=== PATIENT | male | born 1940 | race Caucasian/White ===

== ENCOUNTER 2017-01-07 09:00 | Emergency (ER) | END 2017-01-07 10:50 | disposition home or self-care (01) | DX: S41.111A Laceration without foreign body of right upper arm, initial encounter (principal); S50.811A Abrasion of right forearm, initial encounter; I10 Essential (primary) hypertension; E11.9 Type 2 diabetes mellitus without complications; R93.0 Abnormal findings on diagnostic imaging of skull and head, not elsewhere classified; W05.0XXA Fall from non-moving wheelchair, initial encounter; Y92.9 Unspecified place or not applicable; Z23 Encounter for immunization; Z79.84 Long term (current) use of oral hypoglycemic drugs ==

== ENCOUNTER 2017-04-01 09:45 | Emergency (ER) | END 2017-04-01 14:41 | disposition home or self-care (01) ==

== ENCOUNTER 2017-04-05 11:04 | Emergency (ER) | END 2017-04-05 15:05 | disposition home or self-care (01) ==

== ENCOUNTER → 2017-06-30 | Outpatient (CLI) | END | disposition home or self-care (01) ==

== ENCOUNTER 2017-09-09 00:37 | Emergency (ER) | END 2017-09-09 05:36 | disposition home or self-care (01) ==

== ENCOUNTER 2017-09-11 10:01 | Emergency (ER) | END 2017-09-11 13:30 | disposition home or self-care (01) ==

== ENCOUNTER 2017-09-20 08:58 | Emergency (ER) | END 2017-09-20 10:05 | disposition home or self-care (01) ==

== ENCOUNTER 2018-04-14 05:42 | Emergency (ER) | payer MEDICARE, OTHER ==
[~2018-04-14] VITALS: Ht 180.3 cm; Wt 109.1 kg
[~2018-04-14 05:42] MED LIST: ALBU4TAB4 PO; ASCO500C7 PO; CEPH-443 PO; CHOL100062 PO; CLIN300C10 PO; CLOT1L10 TOP; DOCU-144 PO; GABA-528 PO; GUAI400T44 PO; HYDR-4011 PO; LIDO700A45 TP; LORA1TAB PO; METF-849 PO; METO-448 PO; MULTI PO; NAPR-688 PO; OMEG1CAP2 PO; POTA2TAB14 PO; POTA8TAB2 PO; ROPI0.5T2 PO; SAW450CA7 PO; SULF1TAB31 PO; TAMS0.4C2 PO; VIT1TABL46 PO; ZINC220C5 PO
[2018-04-14 05:50] VITALS: Ht 180.3 cm; Wt 109.1 kg
[2018-04-14] MEDS ORDERED: ONDANSETRON 4 MG INJ IV STA ×2 (06:06→08:18)
[2018-04-14] MEDS ORDERED: morphine 4 MG/ML VIAL IV STA (06:06)
[2018-04-14 08:00] VITALS: BP 174/85; PULSE 74; RESP 16
[2018-04-14] MEDS ORDERED: DIPHENHYDRAMINE 50 MG INJ IV ONE (08:00)
[2018-04-14] MEDS ORDERED: HYDROmorphONE 1 MG/ML SYG IV STA (08:18)
[2018-04-14] MEDS ORDERED: NICARDipine HCL 30 MG CAPSULE PO ONE (08:30)
--- NOTE | 2018-04-14 08:47 | ERD ---
ER Documentation Chief Complaint Chief Complaint CIERA [id number],from [facility],nontraumatic muscular back pain HPI This is a 77-year-old male with a known history of hypertension type 2 diabetes and diabetic neuropathy. The patient has a prosthetic limb of the left lower extremity and resides in [facility]. The patient also indicates he has a history of chronic back pain and his primary care physician is Dr. Mills. Ping ent presents to the emergency department today complaining of worsening of his back pain. He states is localized to the midportion of his thoracic spine. He states he has had multiple similar episodes of this pain. He denies any recent or remote trauma. He states the pain is 8 out of 10 in intensity. He states he takes analgesic medication for the pain but it has not improved his symptoms. H e denies any saddle anesthesia. He denies any changes in his bladder or bowel frequency. He denies any fever shaking or chills. The pain is exacerbated with movement. ROS All systems reviewed and are negative except as per history of present illness. Medications Home Meds Active Scripts Cephalexin* (Keflex*) 500 Mg Capsule, 500 MG PO QID for 7 Days, CAP Prov:EVELYN DEL CASTILLO PA-C 09/20/17 Sulfamethoxazole/Trimethoprim* (Bactrim Ds* Tablet) 1 Each Tablet, 1 TAB PO BID, #14 TAB Prov:EVELYN DEL CASTILLO PA-C 09/20/17 Naproxen* (Naproxen*) 500 Mg Tablet, 500 MG PO BID PRN for q6, #20 TAB Prov:ALETHEA DOMINGUEZ DO 09/09/17 Clindamycin Hcl* (Clindamycin Hcl*) 300 Mg Capsule, 300 MG PO TID for 10 Days, CAP Prov:ALETHEA DOMINGUEZ DO 09/09/17 Reported Medications Guaifenesin (MUCUS RELIEF CHEST) 400 Mg Tablet, 400 MG PO Q12, TAB 09/11/17 Hydrocodone/Acetaminophen ([place] 5-325 Tablet) 1 Each Tablet, 1 EACH PO Q8 PRN for SEVERE PAIN LEVEL 7-10, TAB 09/11/17 Zinc Sulfate* (Zinc Sulfate*) 220 Mg Cap, 220 MG PO DAILY, CAP 09/11/17 Ascorbic Acid* (Vitamin C*) 500 Mg Capsule.sa, 500 MG PO DAILY, CAP 09/11/17 Multivitamins* (Theragran*) 1 Tab Tab, 1 TAB PO DAILY, TAB 09/11/17 Lidocaine (Lidocaine) 1 Each Adh..patch, 1 EACH TP DAILY 09/11/17 Clotrimazole* (Lotrimin*) 1%-10 Ml Solution, 1 APPLIC TOP DAILY, BOTTLE 09/11/17 Gabapentin* (Gabapentin*) 800 Mg Tablet, 800 MG PO TID, #90 TAB 09/11/17 [place] Fruit (Saw [place]) 450 Mg Capsule, 900 MG PO DAILY, CAP 09/11/17 Potassium Gluconate (Potassium Gluconate) 500 Mg Tablet, 500 MG PO BID, TAB 09/11/17 Cholecalciferol* (Vitamin D3*) 1,000 Unit Tablet, 2000 UNIT PO DAILY, TAB 09/11/17 Vitamin B Complex* (Vitamin B Complex*) 1 Each Tablet, 1 TAB PO DAILY, TAB 09/11/17 Ropinirole Hcl* (Ropinirole Hcl*) 0.5 Mg Tablet, 0.5 MG PO HS, TAB 09/11/17 [place]-3 Acid Ethyl Esters (Lovaza) 1 Gm Capsule, 4 GM PO DAILY, CAP 09/11/17 Metoprolol Tartrate* (Lopressor*) 25 Mg Tab, 25 MG PO BID, #60 TAB 09/09/17 Tamsulosin Hcl* (Tamsulosin Hcl*) 0.4 Mg Cap.er.24h, 0.4 MG PO HS, CAP 09/09/17 Albuterol Sulfate* (Albuterol Sulfate*) 4 Mg Tablet, 4 MG PO BID, TAB 09/09/17 Metformin* (Glucophage*) 500 Mg Tab, 500 MG PO DAILY, TAB 07/02/14 Lorazepam* (Lorazepam*) 1 Mg Tablet, 1 MG PO Q8, TAB 07/02/14 Docusate Sodium* (Colace*) 100 Mg Capsule, 100 MG PO TID, CAP 07/02/14 Potassium Chloride* (Klor-Con*) 8 Meq Tablet.sa, 8 MEQ PO DAILY 03/31/12 Allergies Allergies: Coded Allergies: No Known Allergy (Unverified , 09/20/17) PMhx/Soc History of Surgery: Yes (Lt. BKA) Anesthesia Reaction: No Hx Neurological Disorder: No Hx Respiratory Disorders: No Hx Cardiac Disorders: Yes (Cardiac Arrythmia; diabetes; hypertension) Hx Psychiatric Problems: No Hx Miscellaneous Medical Probl: Yes (DM, HTN) Hx Alcohol Use: Yes (Occasional) Hx Substance Use: No Hx Tobacco Use: Yes (40 years ago) Smoking Status: Former smoker Physical Exam Vitals Vital Signs Date Temp Pulse Resp B/P (MAP) Pulse Ox O2 O2 Flow FiO2 Time Delivery Rate 04/14/18 98.0 74 16 174/85 98 08:00 (114) 04/14/18 98.5 72 18 169/107 98 05:50 (127) Physical Exam Constitutional:Well-developed. Well-nourished. HEENT:Normocephalic. Atraumatic.Pupils were equal round reactive to light. Moist mucous membranes.No tonsillar exudates. Neck: No nuchal rigidity. No lymphadenopathy. No posterior cervical spine tenderness or step-offs. Respiratory: Not using accessory muscles of respiration.Lungs were clear to auscultation bilaterally. No rhonchi. No rales. No wheezing. Cardiovascular: Regular rate regular rhythm.No murmurs. No rubs were appreciated.S1, S2 normal. Distal pulses palpable 2+ on the right lower extremity. Nonpalpable in the left lower extremity due to amputation GI: Abdomen was soft. Nontender. Non Distended. No pulsatile abdominal masses or bruits. No rebound. No guarding. Bowel sounds were present and normal. Muscle skeletal: Full range of motion bilateral upper extremities. Patient has a left below the knee amputation. Tenderness over the right parathoracic region T8-9 and 10 with no tenderness with palpation over the thoracic or lumbar spinous processes Skin: No petechia, no purpura. No lesions on the palms or the soles of the feet. No maculopapular rash. NEURO: Patient was alert, awake, orientated x3.No facial droop. Result Diagram: 04/14/1818 04/14/18617 Results 24 hrs Laboratory Tests Test 04/14/18 05:54 04/14/18 06:18 04/14/18 07:40 Bedside Glucose 123 mg/dL White Blood Count 5.9 10^3/ul Red Blood Count 4.61 10^6/ul Hemoglobin 14.7 g/dl Hematocrit 42.7 % Mean Corpuscular Volume 92.6 fl Mean Corpuscular Hemoglobin 31.9 pg Mean Corpuscular 34.4 g/dl Hemoglobin Concent Red Cell Distribution Width 14.4 % Platelet Count 142 10^3/UL Mean Platelet Volume 10.1 fl Immature Granulocytes % 0.700 % Neutrophils % 44.2 % Lymphocytes % 38.5 % Monocytes % 10.5 % Eosinophils % 5.6 % Basophils % 0.5 % Nucleated Red Blood Cells % 0.0 /100WBC Immature Granulocytes # 0.040 10^3/ul Neutrophils # 2.6 10^3/ul Lymphocytes # 2.3 10^3/ul Monocytes # 0.6 10^3/ul Eosinophils # 0.3 10^3/ul Basophils # 0.0 10^3/ul Nucleated Red Blood Cells # 0.0 10^3/ul Prothrombin Time 13.4 Sec Prothrombin Time Ratio 1.0 INR International 1.01 Normalized Ratio Activated Partial Thromboplast 38.7 Sec Time Sodium Level 131 mmol/L Potassium Level 4.1 mmol/L Chloride Level 94 mmol/L Carbon Dioxide Level 22 mmol/L Anion Gap 15 Blood Urea Nitrogen 9 mg/dl Creatinine 0.97 mg/dl Est Glomerular Filtrat mL/min Rate mL/min Glucose Level 115 mg/dl Calcium Level 8.7 mg/dl Total Bilirubin 0.5 mg/dl Direct Bilirubin 0.00 mg/dl Indirect Bilirubin 0.5 mg/dl Aspartate Amino 34 IU/L Transf (AST/SGOT) Alanine 36 IU/L Aminotransferase (ALT/SGPT) Alkaline Phosphatase 93 IU/L Troponin I < 0.012 ng/ml Total Protein 7.2 g/dl Albumin 4.1 g/dl Globulin 3.10 g/dl Albumin/Globulin Ratio 1.32 Urine Color STRAW Urine Clarity CLEAR Urine pH 6.0 Urine Specific [place] 1.004 Urine Ketones NEGATIVE mg/dL Urine Nitrite NEGATIVE mg/dL Urine Bilirubin NEGATIVE mg/dL Urine Urobilinogen NEGATIVE mg/dL Urine Leukocyte Esterase NEGATIVE Goldy/ul Urine Hemoglobin NEGATIVE mg/dL Urine Glucose NEGATIVE mg/dL Urine Total Protein NEGATIVE mg/dl Current Medications Medications Dose Sig/Brooke Start Time Status Last (Trade) Ordered Route PRN Stop Time Admin Dose Reason Admin Morphine 4 mg ONCE STAT 04/14/18 DC 04/14/18 Sulfate IV 06:06 06:21 (morphine) 04/14/18 06:07 Ondansetron 4 mg ONCE STAT 04/14/18 DC 04/14/18 HCl (Zofran IV 06:06 06:21 Inj) 04/14/18 06:07 50 mg ONCE ONCE 04/14/18 DC 04/14/18 Diphenhydrami IV 08:00 07:46 ne HCl 04/14/18 08:01 (Benadryl) Procedures/MDM The patient presented to the emergency department with back pain. My differential diagnosis included but was not limited to spinal origins of the p ain such as fracture, osteomyelitis, epidural abscess, neoplasm, spondylolishtesis, discogenic, cauda equina syndrome or musculoligamentous. Nonspinal causes such as AAA, upper UTI, renal colic, aortic dissection, abdominal neoplasm were also considered as an etiology into their pain. I obtained a twelve-lead EKG tracing to rule out for atypical myocardial infarction. 12 Lead EKG tracing ordered and reviewed by myself showed: Irregular regular rhythm at 68 bpm and no arrhythmia. SC interval not appreciated as P waves are not present QRS duration normal. No ST segment elevation No ST segment depression. No changes consistent with acute ischemia. The patient no severe electrolyte abnormalities. There is no evidence of an infectious process. The patient was afebrile with no leukocytosis. No evidence of sepsis. There is no evidence of urinary tract infection. The patient symptoms are muscle skeletal did not feel any radiographic imaging was required given that this was nontraumatic pain. This is been present for several years according to the patient. He did receive analgesic medication in the emergency department with improvement of his pain. The patient was discharged home in fair condition. They were instructed to return to the emergency department at any time if there was any worsening of their condition. The patient stated they would follow up with their PCP in the next 24-48 hours to initiate a suitable medication regimen under the care of their PCP as well as to allow their PCP to monitor any drug reactions. The patient was discharged home with prescriptions after they gave informed consent to the new medication. They were also fully informed by myself on the adverse effects and adverse drug interactions in order to provide adequate safeguards to prevent possible adverse reactions to medications. Departure Diagnosis: Primary Impression: Back pain Back pain location: thoracic back pain Chronicity: chronic Back pain laterality: right Qualified Codes: M54.6 - Pain in thoracic spine; G89.29 - Other chronic pain Condition: KENNETH Crews MD Apr 14, 2018 08:45
[2018-05-03] MEDS ORDERED: VALA10004 PO (11:44)
[2018-05-03] MEDS ORDERED: HYDR-3980 PO (11:44)
[2018-05-03] MEDS ORDERED: PRED20TA PO (11:44)
[2018-05-07] MEDS ORDERED: IBUP-1542 PO (06:19)
== END 2018-04-14 10:34 | disposition home or self-care (01) ==
LOC: E/R 05:42
DX: M54.6 Pain in thoracic spine (principal); I10 Essential (primary) hypertension; E11.9 Type 2 diabetes mellitus without complications
CPT/HCPCS: 36415; 80053; 81003; 82962; 84484; 85025; 85610; 85730; 87086; 96374; 96375; 96376; 99284; J1170; J1200; J2270; J2405; 93005

== ENCOUNTER 2018-04-16 14:47 | Emergency (ER) | payer MEDICARE, OTHER ==
[~2018-04-16] VITALS: Ht 180.3 cm; Wt 104.5 kg
--- NOTE | 2018-04-16 14:56 | ERD ---
ER Documentation Chief Complaint Chief Complaint chronic LBP HPI The patient is a 77-year-old male, presenting to the ER for chronic low back pain, ran out of pain medication. He denies fever, urinary/fecal incontinence, denies headache, neck pain, chest pain, dyspnea, abdominal pain, vomiting, diarrhea, dysuria. He was seen about 4 days ago for similar symptom and had extensive study that was unremarkable. He does not smoke, drink Past medical history: History of arrhythmia, diabetes mellitus, hypertension, diabetic neuropathy, chronic low back pain Past surgical history: Left below-knee amputation ROS All systems reviewed and are negative except as per history of present illness. Medications Home Meds Active Scripts Hydrocodone/Acetaminophen ([place] 10-325 Tablet) 1 Each Tablet, 1 EACH PO Q6, #5 TAB Prov:CANDIDO GIBSON MD 04/16/18 Cephalexin* (Keflex*) 500 Mg Capsule, 500 MG PO QID for 7 Days, CAP Prov:EVELYN DEL CASTILLO PA-C 09/20/17 Sulfamethoxazole/Trimethoprim* (Bactrim Ds* Tablet) 1 Each Tablet, 1 TAB PO BID, #14 TAB Prov:EVELYN DEL CASTILLO PA-C 09/20/17 Naproxen* (Naproxen*) 500 Mg Tablet, 500 MG PO BID PRN for q6, #20 TAB Prov:ALETHEA DOMINGUEZ DO 09/09/17 Clindamycin Hcl* (Clindamycin Hcl*) 300 Mg Capsule, 300 MG PO TID for 10 Days, CAP Prov:ALETHEA DOMINGUEZ DO 09/09/17 Reported Medications Guaifenesin (MUCUS RELIEF CHEST) 400 Mg Tablet, 400 MG PO Q12, TAB 09/11/17 Hydrocodone/Acetaminophen ([place] 5-325 Tablet) 1 Each Tablet, 1 EACH PO Q8 PRN for SEVERE PAIN LEVEL 7-10, TAB 09/11/17 Zinc Sulfate* (Zinc Sulfate*) 220 Mg Cap, 220 MG PO DAILY, CAP 09/11/17 Ascorbic Acid* (Vitamin C*) 500 Mg Capsule.sa, 500 MG PO DAILY, CAP 09/11/17 Multivitamins* (Theragran*) 1 Tab Tab, 1 TAB PO DAILY, TAB 09/11/17 Lidocaine (Lidocaine) 1 Each Adh..patch, 1 EACH TP DAILY 09/11/17 Clotrimazole* (Lotrimin*) 1%-10 Ml Solution, 1 APPLIC TOP DAILY, BOTTLE 09/11/17 Gabapentin* (Gabapentin*) 800 Mg Tablet, 800 MG PO TID, #90 TAB 09/11/17 Saw [place] Fruit (Saw [place]) 450 Mg Capsule, 900 MG PO DAILY, CAP 09/11/17 Potassium Gluconate (Potassium Gluconate) 500 Mg Tablet, 500 MG PO BID, TAB 09/11/17 Cholecalciferol* (Vitamin D3*) 1,000 Unit Tablet, 2000 UNIT PO DAILY, TAB 09/11/17 Vitamin B Complex* (Vitamin B Complex*) 1 Each Tablet, 1 TAB PO DAILY, TAB 09/11/17 Ropinirole Hcl* (Ropinirole Hcl*) 0.5 Mg Tablet, 0.5 MG PO HS, TAB 09/11/17 [place]-3 Acid Ethyl Esters (Lovaza) 1 Gm Capsule, 4 GM PO DAILY, CAP 09/11/17 Metoprolol Tartrate* (Lopressor*) 25 Mg Tab, 25 MG PO BID, #60 TAB 09/09/17 Tamsulosin Hcl* (Tamsulosin Hcl*) 0.4 Mg Cap.er.24h, 0.4 MG PO HS, CAP 09/09/17 Albuterol Sulfate* (Albuterol Sulfate*) 4 Mg Tablet, 4 MG PO BID, TAB 09/09/17 Metformin* (Glucophage*) 500 Mg Tab, 500 MG PO DAILY, TAB 07/02/14 Lorazepam* (Lorazepam*) 1 Mg Tablet, 1 MG PO Q8, TAB 07/02/14 Docusate Sodium* (Colace*) 100 Mg Capsule, 100 MG PO TID, CAP 07/02/14 Potassium Chloride* (Klor-Con*) 8 Meq Tablet.sa, 8 MEQ PO DAILY 03/31/12 Allergies Allergies: Coded Allergies: No Known Allergy (Unverified , 09/20/17) PMhx/Soc History of Surgery: Yes (Lt. BKA) Anesthesia Reaction: No Hx Neurological Disorder: No Hx Respiratory Disorders: No Hx Cardiac Disorders: Yes (Cardiac Arrythmia; diabetes; hypertension) Hx Psychiatric Problems: No Hx Miscellaneous Medical Probl: Yes (DM, HTN) Hx Alcohol Use: Yes (Occasional) Hx Substance Use: No Hx Tobacco Use: Yes (40 years ago) Physical Exam Vitals Vital Signs Date Temp Pulse Resp B/P (MAP) Pulse Ox O2 O2 Flow FiO2 Time Delivery Rate 04/16/18 97.9 73 16 142/65 98 15:02 (90) Physical Exam Const: No acute distress. Head: Atraumatic. Eyes: Normal Conjunctiva. ENT: Normal External Ears, Nose and Mouth. Neck: Full range of motion. No meningismus. Resp: Clear to auscultation bilaterally. Cardio: Regular rate and rhythm. Abd: Soft, non distended, normal bowel sounds, non tender. Skin: No petechiae or rashes. Back: No midline or flank tenderness. Ext: No cyanosis, or edema. Neur: Awake and alert. No focal deficit Psych: Normal Mood and Affect. Results 24 hrs Current Medications Medications Dose Sig/Brooke Start Time Status Last (Trade) Ordered Route PRN Stop Time Admin Dose Reason Admin 0.5 mg ONCE STAT 04/16/18 DC 04/16/18 Hydromorphone IM 15:08 15:25 HCl 04/16/18 15:10 (Dilaudid) 1 mg ONCE STAT 04/16/18 DC 04/16/18 Hydromorphone IM 16:28 16:49 HCl 04/16/18 16:29 (Dilaudid) Procedures/[place] [id number] Radiology Main Line: [phone] DIAGNOSTIC IMAGING REPORT Patient: BLADE SAAVEDRA : 1940 Age: 77 Sex: M MR #: [id number] DOS: 04/16/18 1508 Ordering MD: CANDIDO GIBSON MD Location: E/R Room/Bed: PROCEDURE: XR Lumbar Spine. CLINICAL INDICATION: Back pain. TECHNIQUE: AP, lateral, and cone-down lateral view of the lumbar spine were obtained. COMPARISON: No prior studies are available for comparison. FINDINGS: Vertebral bodies are normal in height, density, and alignment. Moderate multilevel degenerative enthesopathy greatest at T12-L1 and L3-L4. Mild levo rotoscoliosis with apex at 01-02. Normal lumbar lordosis. No fracture. 3 mm retrolisthesis of L1-L2 and 2 mm retrolisthesis of L2 on L3 and L3 on L4. Mild disc space narrowing at T12-L1 and moderate disc space narrowing at L1-L2 through L5-S1. Multilevel degenerative subchondral endplate sclerosis greatest at L4-L5. The posterior elements are unremarkable. 5 [id number] vertebrae. The soft tissues appear normal. Atherosclerotic calcification of the abdominal aorta. IMPRESSION: 1. Moderate to marked multilevel degenerative discogenic changes and enthesopathy with levo rotoscoliosis with apex at L1-L2. 2. No fracture or dislocation. 3. Atherosclerotic calcification of the abdominal aorta. RPTAT:AAJJ Physician Fatmata Date Time Electronically viewed and signed by Physician Fatmata on 04/16/2018 16:13 KAI/ CC: CANDIDO GIBSON MD [id number] MEDICAL MAKING DECISION: The patient is a 77-year-old male, presenting with chronic back pain, was treated with Dilaudid 0.5 mg then later 1 mg IM for pain with good response, is stable for outpatient follow-up. He also recently had lumbar CT done was unremarkable The differential diagnoses considered include but are not limited to caudal equina syndrome, spinal abscess, DJD, diskitis, lumbar radiculopathy. Departure Diagnosis: Primary Impression: Back pain Condition: Good Comments He was discharged with 5 tablets of [place] 10 mg I discussed the findings with the patient. I advised the patient to follow-up with the primary physician in about 2-3 days, sooner if needed and return if any concern. Disclaimer: Inadvertent spelling and grammatical errors are likely due to EHR/dictation software use and do not reflect on the overall quality of patient care. Also, please note that the electronic time recorded on this note does not necessarily reflect the actual time of the patient encounter. CANDIDO GIBSON MD Apr 16, 2018 14:56
[2018-04-16 15:02] VITALS: Ht 180.3 cm; Wt 104.5 kg
[2018-04-16] MEDS ORDERED: HYDROmorphONE 0.5 MG/0.5 ML SYG IM STA ×2 (15:08→16:28)
[2018-04-16] MEDS ORDERED: HYDR-3980 PO (16:42)
[2018-04-16 18:36] VITALS: BP 148/83; PULSE 80; RESP 16
[2018-05-03] MEDS ORDERED: HYDR-3980 PO (11:44)
[2018-05-03] MEDS ORDERED: VALA10004 PO (11:44)
[2018-05-03] MEDS ORDERED: PRED20TA PO (11:44)
[2018-05-07] MEDS ORDERED: IBUP-1542 PO (06:19)
== END 2018-04-16 18:37 | disposition home or self-care (01) ==
LOC: E/R 14:47
DX: M54.5 Low back pain (principal); I10 Essential (primary) hypertension; E11.9 Type 2 diabetes mellitus without complications; Z79.84 Long term (current) use of oral hypoglycemic drugs; Z87.891 Personal history of nicotine dependence
CPT/HCPCS: 72100; 96372; 99284; J1170

== ENCOUNTER 2018-08-15 03:58 | Inpatient (IN) | payer MEDICARE, OTHER ==
[~2018-08-15] VITALS: Ht 180.3 cm; Wt 100.0 kg
[~2018-08-15 03:58] MED LIST changes: +HYDR-3980 PO; +IBUP-1542 PO; +PRED20TA PO; +VALA10004 PO
[2018-08-15] MEDS ORDERED: ACETAMINOPHEN 325 MG TAB PO STA (04:19)
[2018-08-15] MEDS ORDERED: SOD CHLORIDE 0.9% 500 ML IV ONE (05:30)
[2018-08-15 08:32] VITALS: BP 104/58; RESP 18
[2018-08-15 08:51] VITALS: Ht 180.3 cm; Wt 100.0 kg
[2018-08-15] MEDS ORDERED: ALBUTEROL/IPRATROPIUM (NEB) 3 ML AMP NEB PRN (11:00)
[2018-08-15] MEDS ORDERED: ONDANSETRON 4 MG INJ IV PRN (11:00)
[2018-08-15] MEDS ORDERED: ACETAMINOPHEN 325 MG TAB PO PRN (11:00)
[2018-08-15] MEDS ORDERED: GLUCOSE GEL 15 GRAM TUBE BUCCAL PRN (11:30)
[2018-08-15] MEDS ORDERED: DEXTROSE 50% 50 ML SYRINGE IV PRN ×2 (11:30)
[2018-08-15] MEDS ORDERED: GLUCOSE GEL 15 GRAM TUBE PO PRN ×2 (11:30)
[2018-08-15] MEDS ORDERED: GLUCAGON 1 MG INJ IM PRN (11:30)
[2018-08-15] MEDS ORDERED: GUAIFENESIN/CODEINE 5ML CUP PO PRN (11:30)
[2018-08-15] MEDS ORDERED: LORAZEPAM 1 MG TAB PO PRN (12:30)
[2018-08-15] MEDS: INSULIN ASPART [NOVOLOG] 3 ML PEN SC SCH ×4 (12:42→23:17)
[2018-08-15] MEDS: GABAPENTIN 400 MG CAP PO SCH ×2 (12:42→20:30)
[2018-08-15] MEDS: DOCUSATE SODIUM 100 MG CAP PO SCH ×2 (12:42→20:30)
[2018-08-15] MEDS: morphine 2 MG INJ IV PRN ×3 (12:43→23:08)
[2018-08-15] MEDS: CEFTRIAXONE 1 GM/50 ML (PMX) 50 ML IVPB SCH (12:49)
[2018-08-15] MEDS: ALBUTEROL/IPRATROPIUM (NEB) 3 ML AMP NEB SCH ×3 (13:26→20:33)
[2018-08-15] MEDS: AZITHROMYCIN 500MG/NS (PMX) 250 ML IV SCH (14:37)
[2018-08-15] MEDS: METHYLPREDNISOLONE 125 MG INJ IV SCH ×2 (14:40→23:02)
[2018-08-15] MEDS: ENOXAPARIN 40 MG/0.4 ML SYG SC SCH (14:41)
--- NOTE | 2018-08-15 15:20 | HP ---
DATE OF ADMISSION: 08/15/2018 REASON FOR ADMISSION: Chronic obstructive pulmonary disease exacerbation, acute bronchitis, peripher al neuropathy and lower extremity pain. HISTORY OF PRESENT ILLNESS: The patient is a 77-year-old obese male well known to me who h as a history of diabetes mellitus, left below knee amputation, benign prostatic hypertrophy, hyperten rebecca, former smoker more than 30 years ago, who resides at the assisted living facility, presented to the ER at [facility] complaining of shortness of breath, cough and wheezing. In [facility] ER, he was noted to have a temperature of 100.1 and was diagnosed with chronic obstructive pulmona ry disease exacerbation. The patient was admitted to the medical/surgical floor for further care. U mohamud evaluation, the patient is complaining of ongoing cough, shortness of breath and wheezing, compla ining of pain in the lower extremity due to neuropathy. The patient is admitted for further care. PAST MEDICAL HISTORY: Includes diabetes mellitus, left below knee amputation, benign prostatic hyper trophy, hypertension, neuropathy. He does have a prosthesis. The patient is morbidly obese. SOCIAL HISTORY: He stopped more than 35 years ago he smoked a pack a day about [id number]-[id number] smoking. CONNIEDA denies. The patient is , has 3 kids and multiple grandkids. ALLERGIES: NO KNOWN DRUG ALLERGIES. SURGICAL HISTORY: Left below knee amputation. FAMILY HISTORY: Mother from old age. She was in the late 90s. Father from lung cancer. She was a heavy smoker. MEDICATIONS: The patient's home medications Include; 1. Flomax 0.4 at bedtime. 2. Lopressor 25 b.i.d. 3. Lovaza 4 grams daily. 4. Gabapentin 800 t.i.d. 5. Ibuprofen 600 q.8h., p.r.n. 6. Lorazepam 1 mg q.8h. 7. Naproxen p.r.n. 8. Ropinirole 0.5 mg at bedtime. 9. Potassium gluconate 500 b.i.d. 10. Zinc sulfate 220 daily. 11. Robitussin p.r.n. 12. Colace 100 mg t.i.d. 13. Metformin 500 mg daily. 14. Vitamin C 500 mg daily. 15. Vitamin D3 2000 daily. 16. Multivitamin 1 tab daily. 17. Vitamin B complex 1 tab daily. 18. Saw Rene 900 mg daily. PHYSICAL EXAMINATION: VITAL SIGNS: Temperature 98.3, pulse 18, blood pressure 104/58, saturation 94%. T-max is 100.1 [facility] admission at 4:00 a.m. GENERAL: No acute distress. HEENT: Normocephalic, atraumatic. NECK: No JVD. No lymphadenopathy. CARDIOVASCULAR: S1 and S2. LUNGS: Faint wheezing and rhonchi bilaterally. ABDOMEN: Soft, distended, obese. EXTREMITIES: Left below knee amputation and some evidence of peripheral vascular disease and hyperpi gmentation of the skin. IMAGING STUDIES: Chest x-ray shows mild cardiomegaly without congestive heart failure or pneumonia. ASSESSMENT AND PLAN: This is a 77-year-old obese male with a history of diabetes mellitus, peripheral vascular disease, hypertension who presented with shortness of breath for 3 to 4 days, wa s diagnosed with acute chronic obstructive pulmonary disease exacerbation with superimposed bronchiti s. 1. Respiratory. The patient will be treated with IV steroids with Solu-Medrol, breathing treatment around the clock and antibiotics with azithromycin and ceftriaxone. We will place the patient on oxy gen. Cough suppressant will be provided. Obtain sputum culture. 2. Cardiovascular. The patient will be placed on Lovenox for deep vein thrombosis prophylaxis. Con tinue beta blockers. This is what he takes for his hypertension. 3. Neuropathy. Pain control. Continue Neurontin. 4. The patient will be placed on Protonix for GI prophylaxis. 5. Benign prostatic hypertrophy. Continue Flomax. 6. Diabetes mellitus. Accu-Chek q.a.c. and at bedtime. The patient will be placed on low carbohydr ates diet. We will check hemoglobin A1c, and monitor overall, progress and disposition hopefully liliana n. We will follow closely. Dictated By: MIKE BUSBY/EVAN Conf#: [id number] DID#: [id number] CC: MIKE FRAGA MD;*End*
[2018-08-15 16:43] VITALS: BP 144/71; PULSE 81; RESP 18
[2018-08-15] MEDS ORDERED: ZOLPIDEM 5 MG TAB PO PRN (17:30)
[2018-08-15 20:05] VITALS: BP 150/90; PULSE 89
[2018-08-15] MEDS: TAMSULOSIN (SR) 0.4 MG CAP PO SCH (20:31)
[2018-08-15] MEDS: METOPROLOL 25 MG TAB PO SCH (20:31)
[2018-08-15] MEDS: ROPINIROLE 0.25 MG TAB PO SCH (20:31)
--- NOTE | 2018-08-15 22:54 | ERD ---
ER Documentation Chief Complaint Chief Complaint RA39; COUGH AND CONGESTION X3DAYS WITH CWP HPI This is a very pleasant 69-year-old woman with complaints of congestion for 3 days with chest wall pain associated with it. Cough is mildly productive. No fevers no chills. He was setting limits [place] relief is provided via oxygen [facility]. Denies any fevers or chills. Denies any nausea vomiting. Denies any other current complaints. ROS All systems reviewed and are negative except as per history of present illness. Medications Home Meds Active Scripts Ibuprofen* (Motrin*) 600 Mg Tab, 600 MG PO Q8 PRN for PAIN AND/OR INFLAMMATION, #30 TAB Prov:DARY SAAVEDRA MD 05/07/18 Naproxen* (Naproxen*) 500 Mg Tablet, 500 MG PO BID PRN for q6, #20 TAB Prov:ALETHEA DOMINGUEZ DO 09/09/17 Reported Medications Guaifenesin (MUCUS RELIEF CHEST) 400 Mg Tablet, 400 MG PO Q12, TAB 09/11/17 Zinc Sulfate* (Zinc Sulfate*) 220 Mg Cap, 220 MG PO DAILY, CAP 09/11/17 Ascorbic Acid* (Vitamin C*) 500 Mg Capsule.sa, 500 MG PO DAILY, CAP 09/11/17 Multivitamins* (Theragran*) 1 Tab Tab, 1 TAB PO DAILY, TAB 09/11/17 Gabapentin* (Gabapentin*) 800 Mg Tablet, 800 MG PO TID, #90 TAB 09/11/17 Saw Krebs Fruit (Saw Krebs) 450 Mg Capsule, 900 MG PO DAILY, CAP 09/11/17 Potassium Gluconate (Potassium Gluconate) 500 Mg Tablet, 500 MG PO BID, TAB 09/11/17 Cholecalciferol* (Vitamin D3*) 1,000 Unit Tablet, 2000 UNIT PO DAILY, TAB 09/11/17 Vitamin B Complex* (Vitamin B Complex*) 1 Each Tablet, 1 TAB PO DAILY, TAB 09/11/17 Ropinirole Hcl* (Ropinirole Hcl*) 0.5 Mg Tablet, 0.5 MG PO HS, TAB 09/11/17 [place]-3 Acid Ethyl Esters (Lovaza) 1 Gm Capsule, 4 GM PO DAILY, CAP 09/11/17 Metoprolol Tartrate* (Lopressor*) 25 Mg Tab, 25 MG PO BID, #60 TAB 09/09/17 Tamsulosin Hcl* (Tamsulosin Hcl*) 0.4 Mg Cap.er.24h, 0.4 MG PO HS, CAP 09/09/17 Metformin* (Glucophage*) 500 Mg Tab, 500 MG PO DAILY, TAB 07/02/14 Lorazepam* (Lorazepam*) 1 Mg Tablet, 1 MG PO Q8, TAB 07/02/14 Docusate Sodium* (Colace*) 100 Mg Capsule, 100 MG PO TID, CAP 07/02/14 Discontinued Reported Medications Hydrocodone/Acetaminophen ([place] 5-325 Tablet) 1 Each Tablet, 1 EACH PO Q8 PRN for SEVERE PAIN LEVEL 7-10, TAB 09/11/17 Lidocaine (Lidocaine) 1 Each Adh..patch, 1 EACH TP DAILY 09/11/17 Clotrimazole* (Lotrimin*) 1%-10 Ml Solution, 1 APPLIC TOP DAILY, BOTTLE 09/11/17 Albuterol Sulfate* (Albuterol Sulfate*) 4 Mg Tablet, 4 MG PO BID, TAB 09/09/17 Potassium Chloride* (Klor-Con*) 8 Meq Tablet.sa, 8 MEQ PO DAILY 03/31/12 Discontinued Scripts Hydrocodone/Acetaminophen ([place] 10-325 Tablet) 1 Each Tablet, 1 TAB PO Q6H PRN for PAIN, #7 TAB Prov:HARDIK THOMAS. DO 05/03/18 valACYclovir HCl (Valtrex) 1,000 Mg Tablet, 1000 MG PO TID for 10 Days, TAB Prov:LEKKOS,APOSTOLOS A. DO 05/03/18 Prednisone* (Prednisone*) 20 Mg Tab, 60 MG PO DAILY for 5 Days, TAB Prov:LEKKOS,APOSTOLOS A. DO 05/03/18 Hydrocodone/Acetaminophen ([place] 10-325 Tablet) 1 Each Tablet, 1 EACH PO Q6, #5 TAB Prov:CANDIDO GIBSON MD 04/16/18 Cephalexin* (Keflex*) 500 Mg Capsule, 500 MG PO QID for 7 Days, CAP Prov:EVELYN DEL CASTILLO PA-C 09/20/17 Sulfamethoxazole/Trimethoprim* (Bactrim Ds* Tablet) 1 Each Tablet, 1 TAB PO BID, #14 TAB Prov:EVELYN DEL CASTILLO PA-C 09/20/17 Clindamycin Hcl* (Clindamycin Hcl*) 300 Mg Capsule, 300 MG PO TID for 10 Days, CAP Prov:ALETHEA DOMINGUEZ DO 09/09/17 Allergies Allergies: Coded Allergies: No Known Allergy (Unverified , 09/20/17) PMhx/Soc History of Surgery: Yes (left below knee amputation) Anesthesia Reaction: No Hx Neurological Disorder: Yes (neuropathy) Hx Respiratory Disorders: Yes (cough/congestion) Hx Cardiac Disorders: Yes (HTN) Hx Psychiatric Problems: No Hx Miscellaneous Medical Probl: No Hx Alcohol Use: Yes Hx Substance Use: No Hx Tobacco Use: No Smoking Status: Former smoker Physical Exam Vitals Vital Signs Date Temp Pulse Resp B/P (MAP) Pulse Ox O2 O2 Flow FiO2 Time Delivery Rate 08/15/18 76 20 133/76 100 Nasal 3.0 05:55 (95) Cannula 08/15/18 Nasal 3 04:51 Cannula 08/15/18 100.1 04:50 08/15/18 100.1 94 20 120/78 94 04:00 (92) Physical Exam Const: No acute distress Head: Atraumatic Eyes: Normal Conjunctiva ENT: Normal External Ears, Nose and Mouth. Neck: Full range of motion. No meningismus. Resp: Scattered wheezes bilaterally Cardio: Regular rate and rhythm, no murmurs Abd: Soft, non tender, non distended. Normal bowel sounds Skin: No petechiae or rashes Back: No midline or flank tenderness Ext: No cyanosis, or edema Neur: Awake and alert Psych: Normal Mood and Affect Result Diagram: 08/15/18 0430 08/15/18 043 Results 24 hrs Laboratory Tests Test 08/15/18 04:30 08/15/18 04:46 White Blood Count 8.3 10^3/ul Red Blood Count 4.31 10^6/ul Hemoglobin 13.7 g/dl Hematocrit 40.4 % Mean Corpuscular Volume 93.7 fl Mean Corpuscular Hemoglobin 31.8 pg Mean Corpuscular Hemoglobin Concent 33.9 g/dl Red Cell Distribution Width 13.6 % Platelet Count 141 10^3/UL Mean Platelet Volume 10.4 fl Immature Granulocytes % 0.200 % Neutrophils % 69.9 % Lymphocytes % 14.4 % Monocytes % 12.2 % Eosinophils % 2.9 % Basophils % 0.4 % Nucleated Red Blood Cells % 0.0 /100WBC Immature Granulocytes # 0.020 10^3/ul Neutrophils # 5.8 10^3/ul Lymphocytes # 1.2 10^3/ul Monocytes # 1.0 10^3/ul Eosinophils # 0.2 10^3/ul Basophils # 0.0 10^3/ul Nucleated Red Blood Cells # 0.0 10^3/ul Prothrombin Time 14.4 Sec Prothrombin Time Ratio 1.1 INR International Normalized Ratio 1.11 Activated Partial Thromboplast Time 40.4 Sec Sodium Level 132 mmol/L Potassium Level 4.7 mmol/L Chloride Level 99 mmol/L Carbon Dioxide Level 24 mmol/L Anion Gap 9 Blood Urea Nitrogen 14 mg/dl Creatinine 1.14 mg/dl Est Glomerular Filtrat Rate mL/min mL/min Glucose Level 162 mg/dl Calcium Level 8.8 mg/dl Total Bilirubin 1.1 mg/dl Direct Bilirubin 0.00 mg/dl Indirect Bilirubin 1.1 mg/dl Aspartate Amino Transf (AST/SGOT) 18 IU/L Alanine Aminotransferase (ALT/SGPT) 27 IU/L Alkaline Phosphatase 77 IU/L Troponin I < 0.012 ng/ml Total Protein 7.1 g/dl Albumin 3.8 g/dl Globulin 3.30 g/dl Albumin/Globulin Ratio 1.15 POC Venous Lactate 1.5 mmol/L Current Medications Medications Dose Sig/Brooke Start Time Status Last (Trade) Ordered Route PRN Stop Time Admin Dose Reason Admin 650 mg ONCE STAT 08/15/18 DC 08/15/18 Acetaminophen PO 04:19 04:50 (Tylenol 08/15/18 04:21 Tab) Sodium 500 ml @ Q1H ONCE 08/15/18 DC 08/15/18 Chloride 500 mls/hr IV 05:30 05:33 08/15/18 06:29 Procedures/MDM EKG: Rate/Rhythm: [Normal Sinus Rhythm] QRS, ST, T-waves: [No changes consistent w/ acute ischemia] Impression: [No evidence of ischemia or arrhythmia] Chest X-ray 1V Interpreted by me: Soft Tissue: No acute abnormalities Bones: No acute abnormalities Mediastinum/Cardiac Silhouette/Lungs: [No acute abnormalities] Medical decision making: This is a very pleasant 77-year-old male comes in because of shortness of breath. At this point is clinically stable for patient be admitted to Dr. Mills for COPD exacerbation. He has been notified Departure Diagnosis: Primary Impression: COPD (chronic obstructive pulmonary disease) COPD type: unspecified COPD Qualified Codes: J44.9 - Chronic obstructive pulmonary disease, unspecified Condition: Serious QUIRINO OCONNOR August 15, 2018 22:54
[2018-08-16] MEDS: ALBUTEROL/IPRATROPIUM (NEB) 3 ML AMP NEB SCH ×6 (00:13→21:19)
[2018-08-16] MEDS: ACCU-CHEK XX SCH (02:00)
[2018-08-16 02:24] VITALS: BP 143/86; PULSE 92; RESP 20
[2018-08-16] MEDS: morphine 2 MG INJ IV PRN ×4 (03:16→23:27)
[2018-08-16] MEDS: METHYLPREDNISOLONE 125 MG INJ IV SCH ×3 (05:58→21:12)
[2018-08-16] MEDS: PANTOPRAZOLE (EC) 40 MG TAB PO SCH (05:58)
[2018-08-16 07:57] VITALS: BP 137/76; PULSE 76; RESP 18
[2018-08-16] MEDS: DOCUSATE SODIUM 100 MG CAP PO SCH ×3 (08:37→21:06)
[2018-08-16] MEDS: CHOLECALCIFEROL 2,000 UNIT CAP PO SCH (08:37)
[2018-08-16] MEDS: ASCORBIC ACID 500 MG TAB PO SCH (08:37)
[2018-08-16] MEDS: MULTIVITAMINS THERAPEUTIC TAB PO SCH (08:37)
[2018-08-16] MEDS: INSULIN ASPART [NOVOLOG] 3 ML PEN SC SCH ×4 (08:38→21:11)
[2018-08-16] MEDS: GABAPENTIN 400 MG CAP PO SCH ×3 (08:38→21:05)
[2018-08-16] MEDS: VITAMIN B COMPLEX/VIT C CAP PO SCH (08:39)
[2018-08-16] MEDS: METOPROLOL 25 MG TAB PO SCH ×2 (08:40→21:05)
[2018-08-16] MEDS: ENOXAPARIN 40 MG/0.4 ML SYG SC SCH (08:42)
[2018-08-16] MEDS: CEFTRIAXONE 1 GM/50 ML (PMX) 50 ML IVPB SCH (12:22)
[2018-08-16] MEDS: AZITHROMYCIN 500MG/NS (PMX) 250 ML IV SCH (13:15)
[2018-08-16 14:51] VITALS: BP 148/80; PULSE 71; RESP 18
--- NOTE | 2018-08-16 17:55 | QN ---
Documentation Comment As Physician Advisor I have reviewed the chart and have determined that as of today, this patient continues to receive medically necessary care required for the diagnosis and treatment of illness or injury. There has been no unreasonable delay in the rendering of medically necessary services, and medically necessary care has required a length of stay greater than two midnights. Additional information gained during the stay now suggests this patient should have been classified as an inpatient at the time of admission, and I will change the status to inpatient to reflect that medical judgment. Besides the notes from the medical providers, the following information was used in this determination: COPD exacerbation, comorbidities including diabetes, ongoing requirement for IV antibiotics and breathing treatments Please call me at [phone] with questions. LORENA VERMA MD August 16, 2018 17:55
[2018-08-16 19:25] VITALS: BP 146/72; PULSE 81; RESP 20
--- NOTE | 2018-08-16 20:00 | PN ---
DATE: 08/16/2018 SUBJECTIVE: The patient seen, feeling better, still has a cough and mild shortness of breath but ove rall does feel better. OBJECTIVE: VITAL SIGNS: Temperature 98.2. The patient is now afebrile, pulse 72, respirations 18, blood pressu re 148/80, saturation 94% on room air. GENERAL: No acute distress. The patient is pale, obese. CARDIOVASCULAR: S1, S2. LUNGS: Clear bilaterally with decreased breath sounds bilaterally. ABDOMEN: Soft, obese. EXTREMITIES: Left BKA. LABORATORY DATA: White count 6.2, hemoglobin 14.2, hematocrit 42, platelet count 161, neutrophils 80 %, lymphocytes 18%. Chemistry: Sodium is 137, potassium 4.7, chloride 100, bicarbonate 26, BUN is 1 6, creatinine 1.07, glucose of 252. Last glucose level 180 and 204. Hemoglobin A1c came back at 6.5 . TSH 3.0. Urinalysis negative and INR 1.1. Again, respiratory culture does show gram-negative darrion s. Urine culture and blood cultures are negative. CURRENT MEDICATIONS: Include: 1. Vitamin C 500 mg daily. 2. Vitamin D 2000 daily. 3. Multivitamins daily. 4. Vitamin B complex daily. 5. Protonix 40 mg daily. 6. Lopressor 25 b.i.d. 7. Requip 0.5 at bedtime. 8. Flomax 0.4 at bedtime. 9. Ambien 5 mg at bedtime p.r.n. 10. Solu-Medrol 60 IV q.8. 11. DuoNeb every 4 hours. 12. Colace 100 t.i.d. 13. Neurontin 800 t.i.d. 14. Morphine p.r.n. 15. Lovenox 40 mg subcu daily. 16. Ativan 1 mg q.6 p.r.n. 17. Azithromycin dose per pharmacy. 18. Insulin aspart per sliding scale. 19. Robitussin-AC 5 mL q.4 p.r.n. 20. Rocephin 1 gram q.24h. 21. Zofran. 22. Tylenol. 23. DuoNeb as directed. ASSESSMENT AND PLAN: This is a 77-year-old obese male with history of diabetes mellitus, p eripheral vascular disease, hypertension, left BKA, presented with shortness of breath for 3 to 4 day s, was diagnosed with acute chronic obstructive pulmonary disease exacerbation, was thought to have a low-grade fever. 1. Respiratory. The patient with chronic obstructive pulmonary disease exacerbation. Continue IV s teroids, breathing treatment around the clock and antibiotics. Noted positive sputum culture. We wi ll follow up results. 2. Cardiovascular. The patient is on Lovenox for deep venous thrombosis prophylaxis. Continue medi cation to control his blood pressure. 3. Neuropathy. Continue Neurontin. Pain control. We will request physical therapy as well. 4. The patient is placed on Protonix for GI prophylaxis. 5. Benign prostatic hypertrophy. Continue Flomax. 6. Diabetes mellitus. Continue Accu-Cheks with insulin coverage as the patient is on IV Solu-Medrol . 7. Stool softeners will be provided. Overall, clinically improving. Again, we will follow blood cu lture results. Dictated By: MIKE BUSBY/EVAN Conf#: [id number] DID#: [id number] CC: MIKE FRAGA MD;*EndCC*
[2018-08-16] MEDS: ROPINIROLE 0.25 MG TAB PO SCH (21:05)
[2018-08-16] MEDS: TAMSULOSIN (SR) 0.4 MG CAP PO SCH (21:05)
[2018-08-17] MEDS: ALBUTEROL/IPRATROPIUM (NEB) 3 ML AMP NEB SCH ×5 (01:44→16:11)
[2018-08-17] MEDS: ACCU-CHEK XX SCH (01:45)
[2018-08-17 02:15] VITALS: BP 134/73; PULSE 68; RESP 20
[2018-08-17] MEDS: METHYLPREDNISOLONE 125 MG INJ IV SCH ×2 (05:37→14:01)
[2018-08-17] MEDS: PANTOPRAZOLE (EC) 40 MG TAB PO SCH (05:37)
[2018-08-17 08:21] VITALS: BP 138/70; PULSE 70; RESP 18
[2018-08-17] MEDS: DOCUSATE SODIUM 100 MG CAP PO SCH ×3 (08:54→20:37)
[2018-08-17] MEDS: MULTIVITAMINS THERAPEUTIC TAB PO SCH (08:55)
[2018-08-17] MEDS: VITAMIN B COMPLEX/VIT C CAP PO SCH (08:55)
[2018-08-17] MEDS: CHOLECALCIFEROL 2,000 UNIT CAP PO SCH (08:55)
[2018-08-17] MEDS: GABAPENTIN 400 MG CAP PO SCH ×3 (08:55→20:38)
[2018-08-17] MEDS: ASCORBIC ACID 500 MG TAB PO SCH (08:55)
[2018-08-17] MEDS: METOPROLOL 25 MG TAB PO SCH ×2 (08:56→20:37)
[2018-08-17] MEDS: INSULIN ASPART [NOVOLOG] 3 ML PEN SC SCH ×3 (08:57→17:48)
[2018-08-17] MEDS: ENOXAPARIN 40 MG/0.4 ML SYG SC SCH (08:57)
[2018-08-17] MEDS: morphine 2 MG INJ IV PRN ×2 (11:18→17:36)
[2018-08-17] MEDS: CEFTRIAXONE 1 GM/50 ML (PMX) 50 ML IVPB SCH (11:20)
[2018-08-17] MEDS: AZITHROMYCIN 500MG/NS (PMX) 250 ML IV SCH (12:50)
--- NOTE | 2018-08-17 14:48 | PDOCDIS ---
Discharge Instructions CONDITION [id number] Patient Condition: Sgnou9i Stable ACTIVITY: [id number] Activity Restrictions: [id number] Slowly Increase Activity FOLLOW UP/APPOINTMENTS Follow-up Plan follow up with PCP, continue all home meds, see attached prescriptions MIKE FRAGA MD August 17, 2018 14:48
--- NOTE | 2018-08-17 14:48 | RADRPT ---
Vent Rate: 86 bpm RR Interval: 0 msec MT Interval: 0 msec QRS Duration: 92 msec QT Interval: 360 msec QTC Interval: 430 msec P-R-T [place]: 0 - 9 - 56 degrees Atrial fibrillation Abnormal ECG Electronically Signed By: [facility]
[2018-08-17] MEDS ORDERED: MED4DP PO (14:50)
[2018-08-17] MEDS ORDERED: LEVO500T48 PO (14:50)
[2018-08-17] MEDS ORDERED: HYDR-4011 PO (14:50)
[2018-08-17 15:05] VITALS: BP 130/74; PULSE 72; RESP 18
--- NOTE | 2018-08-17 16:55 | DS ---
DATE OF ADMISSION: 08/16/2018 DATE OF DISCHARGE: 08/17/2018 REASON FOR ADMISSION: Acute COPD exacerbation and acute bronchitis. HOSPITAL COURSE: The patient is a 77-year-old male with history of diabetes mellitus, left [id number] amputation, BPH, hypertension, neuropathy, obesity, who has a left lower extremity pr osthesis. The patient presented to [facility] complaining of progressive worsening shortness of breath. The patient was coughing, wheezing and had a temperature of 100.1. Ultimately , it was decided to admit the patient for further care where I started the patient on breathing treat ment round the clock, IV steroids and antibiotics with Rocephin and azithromycin. The patient is slo wly improving as his lungs are now clear. He does have sticking cough. He has been treated with the above antibiotics and patient is now afebrile. Labs show a white count of 6.2, hemoglobin of 14.2, platelet count of 161. Glucose levels were slightly high due to the steroids but otherwise the patie nt's urinalysis is negative. Urine culture and blood culture are all negative. Chest x-ray just naima wed mild cardiomegaly without CHF or pneumonia. The patient is feeling much better. He can be disch arged with his home meds. Continue [place] p.r.n. and Levaquin 500 mg daily for 5 days. His sputum cu lture shows Serratia marcescens sensitive to Levaquin. OTHER MEDICATIONS: Include: 1. Medrol Dosepak for 6 days. 2. Vitamin C 500 mg daily. 3. Vitamin D3 2000 daily. 4. Colace 100 b.i.d. 5. Gabapentin 800 t.i.d. 6. Robitussin b.i.d. 7. Ibuprofen p.r.n. 8. Lorazepam 1 mg q. 8 as directed. 9. Metformin 500 mg daily. 10. Metoprolol titrate b.i.d. 11. Multivitamins daily. 12. [place] 3 as directed. 13. Ropinirole 0.5 mg at bedtime. 14. Flomax 0.4 at bedtime. 15. Vitamin B complex. 16. Zinc sulfate. FINAL DIAGNOSES: 1. Acute respiratory failure. 2. Chronic obstructive pulmonary disease exacerbation. 3. Acute bronchitis. 4. Diabetes mellitus. 5. Atherosclerotic cardiovascular disease. 6. Left below-knee amputation. 7. Obese state. 8. Chronic pain. 9. Diabetic neuropathy. 10. Benign prostatic hypertrophy. 11. Dyslipidemia. Overall, weight loss is definitely advised. The patient is to follow up with PCP. Any change in con dition to call 911 or go to nearest emergency department. The patient is discharged in [facility] back to the assisted living. Discharge planning was discussed. He agrees to plan of care and he i s aware of the patient's overall condition. Dictated By: MIKE BUSBY/EVAN Conf#: [id number] DID#: [id number]
[2018-08-17 20:22] VITALS: BP 155/88; PULSE 78; RESP 18
[2018-08-17] MEDS: TAMSULOSIN (SR) 0.4 MG CAP PO SCH (20:37)
[2018-08-17] MEDS: ROPINIROLE 0.25 MG TAB PO SCH (20:37)
[2018-08-17 21:40] VITALS: BP 137/72; PULSE 72; RESP 18
[2018-08-18] MEDS ORDERED: AZITHROMYCIN 500 MG TAB PO SCH (09:00)
== END 2018-08-17 21:30 | disposition home or self-care (01) | DRG 190 ==
LOC: E/R 03:58 → MS1 05:55 → OBSVTOIN 08-16 15:54
PROVIDERS: ADMIT Internal Medicine; ATTEND Internal Medicine
PROC: 3E0F7GC Introduction of Other Therapeutic Substance into Respiratory Tract, Via Natural or Artificial Opening (ICD-10-PCS; principal; 2018-08-15)
DX: J44.1 Chronic obstructive pulmonary disease with (acute) exacerbation (principal); J96.00 Acute respiratory failure, unspecified whether with hypoxia or hypercapnia; J20.9 Acute bronchitis, unspecified; J44.0 Chronic obstructive pulmonary disease with (acute) lower respiratory infection; E11.9 Type 2 diabetes mellitus without complications; I25.10 Atherosclerotic heart disease of native coronary artery without angina pectoris; Z89.512 Acquired absence of left leg below knee; Z68.30 Body mass index [BMI] 30.0-30.9, adult; G89.29 Other chronic pain; E11.40 Type 2 diabetes mellitus with diabetic neuropathy, unspecified; N40.0 Benign prostatic hyperplasia without lower urinary tract symptoms; E78.5 Hyperlipidemia, unspecified; E66.01 Morbid (severe) obesity due to excess calories; Z87.891 Personal history of nicotine dependence
CPT/HCPCS: 36415; 71045; 80053; 81003; 82962; 83036; 83605; 83735; 84100; 84443; 84484; 85025; 85610; 85730; 87070; 87086; 93005; 94640; 94664; 99217; G0378; J0456; J0696; J1650; J1815; J2270; J2930; J7040

== ENCOUNTER 2018-10-25 18:13 | Inpatient (IN) | payer MEDICARE, OTHER ==
[~2018-10-25] VITALS: Ht 177.8 cm; Wt 105.0 kg
[~2018-10-25 18:13] MED LIST changes: -ALBU4TAB4 PO; -CEPH-443 PO; -CLIN300C10 PO; -CLOT1L10 TOP; -HYDR-3980 PO; +LEVO500T48 PO; -LIDO700A45 TP; +MED4DP PO; -NAPR-688 PO; -POTA8TAB2 PO; -PRED20TA PO; -SULF1TAB31 PO; -VALA10004 PO
--- NOTE | 2018-10-25 18:41 | ERD ---
ER Documentation Chief Complaint Chief Complaint [facility] from [facility],s/p fall,c/o R ankle & R hip pain,back head,SOB HPI 77-year-old male history of diabetes, hypertension, COPD, peripheral vascular disease status post left BKA and BPH presents to the ED complaining of right ankle and right buttock pain after a fall. Patient reports he fell backward and complains of moderate sharp, nonradiating right buttock pain and moderate to severe sharp, nonradiating right ankle pain exacerbated by motion. Unable to weight-bear. Denies syncope, head injury, loss of consciousness, neck or back pain. No focal weakness or numbness. No chest pain, palpitations or shortness of breath. No fevers or chills. ROS All systems reviewed and are negative except as per history of present illness. Medications Home Meds Active Scripts Hydrocodone/Acetaminophen ([place] 5-325 Tablet) 1 Each Tablet, 1 EACH PO Q8, #20 TAB Prov:MIKE FRAGA MD 08/17/18 Methylprednisolone* (Medrol* DOSE PACK) 4 Mg/Dose-Pack Tab.ds.pk, 4 MG PO . DIRECTED for 6 Days, PACKET Prov:MIKE FRAGA MD 08/17/18 Levofloxacin* (Levaquin*) 500 Mg Tablet, 500 MG PO DAILY for 5 Days, TAB Prov:IMKE FRAGA MD 08/17/18 Ibuprofen* (Motrin*) 600 Mg Tab, 600 MG PO Q8 PRN for PAIN AND/OR INFLAMMATION, #30 TAB Prov:DARY SAAVEDRA MD 05/07/18 Reported Medications Zinc Sulfate* (Zinc Sulfate*) 220 Mg Cap, 220 MG PO DAILY, CAP 09/11/17 Ascorbic Acid* (Vitamin C*) 500 Mg Capsule.sa, 500 MG PO DAILY, CAP 09/11/17 Multivitamins* (Theragran*) 1 Tab Tab, 1 TAB PO DAILY, TAB 09/11/17 Gabapentin* (Gabapentin*) 800 Mg Tablet, 800 MG PO TID, #90 TAB 09/11/17 Cholecalciferol* (Vitamin D3*) 1,000 Unit Tablet, 2000 UNIT PO DAILY, TAB 09/11/17 Vitamin B Complex* (Vitamin B Complex*) 1 Each Tablet, 1 TAB PO DAILY, TAB 09/11/17 Ropinirole Hcl* (Ropinirole Hcl*) 0.5 Mg Tablet, 0.5 MG PO HS, TAB 09/11/17 Metoprolol Tartrate* (Lopressor*) 25 Mg Tab, 25 MG PO BID, #60 TAB 09/09/17 Tamsulosin Hcl* (Tamsulosin Hcl*) 0.4 Mg Cap.er.24h, 0.4 MG PO HS, CAP 09/09/17 Metformin* (Glucophage*) 500 Mg Tab, 500 MG PO DAILY, TAB 07/02/14 Lorazepam* (Lorazepam*) 1 Mg Tablet, 1 MG PO Q8, TAB 07/02/14 Docusate Sodium* (Colace*) 100 Mg Capsule, 100 MG PO TID, CAP 07/02/14 Discontinued Reported Medications Guaifenesin (MUCUS RELIEF CHEST) 400 Mg Tablet, 400 MG PO Q12, TAB 09/11/17 Saw [place] Fruit (Saw [place]) 450 Mg Capsule, 900 MG PO DAILY, CAP 09/11/17 Potassium Gluconate (Potassium Gluconate) 500 Mg Tablet, 500 MG PO BID, TAB 09/11/17 [place]-3 Acid Ethyl Esters (Lovaza) 1 Gm Capsule, 4 GM PO DAILY, CAP 09/11/17 Allergies Allergies: Coded Allergies: No Known Allergy (Unverified , 10/26/18) PMhx/Soc Temp: 98.6. Pulse: 63. Respirations: 18. Blood pressure: 119/77. O2 saturation 94% on room air. History of Surgery: Yes (left below knee amputation) Anesthesia Reaction: No Hx Neurological Disorder: Yes (neuropathy) Hx Respiratory Disorders: Yes (cough/congestion) Hx Cardiac Disorders: Yes (HTN) Hx Psychiatric Problems: No Hx Miscellaneous Medical Probl: No Hx Alcohol Use: Yes Hx Substance Use: No Hx Tobacco Use: No FmHx No family history relevant to presenting complaint Physical Exam Vitals Temp: 98.6. Pulse: 63. Respirations: 18. Blood pressure: 119/77. O2 saturat ion 94% on room air. Physical Exam Const: Moderate distress due to pain Head: Atraumatic Eyes: Normal Conjunctiva ENT: Normal External Ears, Nose and Mouth. Neck: Full range of motion. No midline bony tenderness or paraspinal muscle spasm. No step-off. Resp: Breath sounds are mildly decreased bilaterally with occasional expiratory wheezing but no rales or rhonchi Cardio: Regular rate and rhythm, no murmurs Abd: Soft, non tender, obese, non distended. Normal bowel sounds Skin: No petechiae or rashes Back: No midline or flank tenderness Ext: Left lower extremity: Status post BKA. Right lower extremity: Ankle: Swelling and tenderness of the right greater than left malleoli. Decreased range of motion. Distal neurovascular intact. No proximal tib-fib tenderness or knee tenderness. Full range of motion. No lacerations or abrasions. Compartments are soft. Neur: Awake and alert. No focal deficit. Psych: Normal Mood and Affect Result Diagram: 10/27/1863210/27/18632 Results 24 hrs Laboratory Tests Test 10/25/18 18:56 10/25/18 20:07 Bedside Glucose 123 mg/dL White Blood Count 10.7 10^3/ul Red Blood Count 4.70 10^6/ul Hemoglobin 14.6 g/dl Hematocrit 44.1 % Mean Corpuscular Volume 93.8 fl Mean Corpuscular Hemoglobin 31.1 pg Mean Corpuscular Hemoglobin Concent 33.1 g/dl Red Cell Distribution Width 14.7 % Platelet Count 175 10^3/UL Mean Platelet Volume 10.4 fl Immature Granulocytes % 0.900 % Neutrophils % 56.3 % Lymphocytes % 30.8 % Monocytes % 10.2 % Eosinophils % 1.5 % Basophils % 0.3 % Nucleated Red Blood Cells % 0.0 /100WBC Immature Granulocytes # 0.100 10^3/ul Neutrophils # 6.0 10^3/ul Lymphocytes # 3.3 10^3/ul Monocytes # 1.1 10^3/ul Eosinophils # 0.2 10^3/ul Basophils # 0.0 10^3/ul Nucleated Red Blood Cells # 0.0 10^3/ul Sodium Level 135 mmol/L Potassium Level 4.4 mmol/L Chloride Level 98 mmol/L Carbon Dioxide Level 30 mmol/L Anion Gap 7 Blood Urea Nitrogen 20 mg/dl Creatinine 1.37 mg/dl Est Glomerular Filtrat Rate mL/min mL/min Glucose Level 117 mg/dl Calcium Level 9.2 mg/dl Total Bilirubin 0.6 mg/dl Direct Bilirubin 0.00 mg/dl Indirect Bilirubin 0.6 mg/dl Aspartate Amino Transf (AST/SGOT) 26 IU/L Alanine Aminotransferase (ALT/SGPT) 30 IU/L Alkaline Phosphatase 68 IU/L Troponin I < 0.012 ng/ml Total Protein 7.0 g/dl Albumin 3.8 g/dl Globulin 3.20 g/dl Albumin/Globulin Ratio 1.18 Current Medications Medications Dose Sig/Brooke Start Time Status Last (Trade) Ordered Route PRN Stop Time Admin Dose Reason Admin Morphine 4 mg ONCE ONCE 10/25/18 DC 10/25/18 Sulfate IM 19:00 18:50 (morphine) 10/25/18 19:01 Morphine 4 mg ONCE STAT 10/25/18 DC 10/25/18 Sulfate IV 20:32 20:44 (morphine) 10/25/18 20:34 Procedures/MDM DOCUMENTS REVIEWED: ED nurse, prior records IMAGING: Chest AP portable: Cardiac silhouette is normal. The costophrenic angles are clear. No effusions or infiltrates. My interpretation. PROCEDURE: XR Foot 3 Views. CLINICAL INDICATION: Right foot painand trauma. TECHNIQUE: AP, oblique and lateral views of the right foot were obtained. The images were reviewed on a PACS workstation. COMPARISON: DR DOMINGUEZ 09/09/2017 FINDINGS: Mineralization: Normal. Fracture: Obliquely oriented, mildly displaced fracture through the lateral malleolus. Old, healed fifth metatarsal fracture. Bony lesions: None. Interosseous spaces: Moderate hallux valgus. Hammertoe deformities of the second through fifth toes. Mild degenerative change at the calcaneal cuboid joint. Subtle heterotopic calcification along the anterior margin of the distal tibia. Soft tissues: Unremarkable. Other: Large Achilles insertion and moderate sized plantar calcaneal heel spurs. IMPRESSION: Lateral malleolus fracture. Old, healed fifth metatarsal fracture. Hallux valgus. Hammertoe deformities of the second through fifth toes. Mild degenerative change of the calcaneal cuboid joint. Subtle heterotopic calcification along the anterior margin of the distal tibia. This could be the sequelae of degenerative change at the tibiotalar joint. Plantar calcaneal and Achilles insertion heel spurs. If there is high clinical suspicion for additional traumatic injury, further evaluation with CT should be considered.. RPTAT: AA .Mikhail Acevedo MD, MD Date Time Electronically viewed and signed by .Mikhail Acevedo MD, MD on 10/25/2018 19:27 PROCEDURE: XR Right Ankle 3 Views. CLINICAL INDICATION: Right ankle pain and trauma. TECHNIQUE: AP, oblique and lateral views of the right ankle was performed. COMPARISON: None. FINDINGS: Mineralization: Normal. Fracture: Obliquely oriented, minimally displaced fracture through the lateral malleolus. Transverse, potentially comminuted, minimally displaced fracture through the medial malleolus. Bony lesions: None. Interosseous spaces: Normal. Soft tissues: Subtle heterotopic calcification along the anterior margin of the distal tibia. Soft tissue swelling over the lateral malleolus and anterior ankle. Other: Large Achilles insertion and moderate sized plantar calcaneal heel spurs. IMPRESSION: Medial and lateral malleolus fractures. Soft tissue swelling over the lateral malleolus and anterior ankle. Ligamentous and tendinous injury is not excluded. If characterization of the ligaments and tendons is needed MRI is recommended. Subtle heterotopic calcification along the inter margin of the distal tibia. Finding could be the sequelae of degenerative change. Achilles insertion and plantar calcaneal heel spurs. If there is high clinical suspicion for additional traumatic injury, further evaluation with CT should be considered. RPTAT: AA .Mikhail Acevedo MD, MD Date Time Electronically viewed and signed by .Mikhail Acevedo MD, MD on 10/25/2018 19:24 [employer]-year-old male history of diabetes, hypertension, COPD, peripheral vascular disease status post left BKA and BPH presents to the ED complaining of right ankle and right buttock pain after a fall. CBC is unremarkable for leukocytosis, anemia or thrombocytopenia. Chemistry significant for mildly elevated creatinine with normal BUN consistent with prior results but no significant hyperkalemia or electrolyte abnormalities. EKG shows chronic atrial fibrillation with controlled rate but no ischemic changes. Radiographs of the right ankle reveal a bimalleolar ankle fracture. Patient required intravenous opiates for pain control. There is no syncope, head injury, headache or indication for neuroimaging. Orthopedics, Dr. Bryant consulted. Patient will be admitted to [facility] for orthopedic consultation, further evaluation and management. CALLS?CONSULTATIONS: Time: 19:52. Dr Bryant CARE TRANSFERRED: Time: 19:58. Dr Fraga Departure Diagnosis: Primary Impression: Fall with significant injury Encounter type: initial encounter Qualified Codes: W19.XXXA - Unspecified fall, initial encounter Additional Impressions: Closed bimalleolar fracture of right ankle Encounter type: initial encounter Qualified Codes: S82.841A - Displaced bimalleolar fracture of right lower leg, initial encounter for closed fracture Status post below knee amputation of left lower extremity Diabetes mellitus type 2 in obese Chronic a-fib Condition: Serious GLENIS MACKEY MD Oct 25, 2018 18:41
[2018-10-25] MEDS ORDERED: morphine 4 MG/ML VIAL IM ONE (19:00)
[2018-10-25] MEDS ORDERED: morphine 4 MG/ML VIAL IV STA (20:32)
[2018-10-25] MEDS ORDERED: ONDANSETRON 4 MG INJ IV PRN ×2 (21:00→22:30)
[2018-10-25] MEDS ORDERED: ACETAMINOPHEN 325 MG TAB PO PRN ×2 (21:00→22:30)
[2018-10-25] MEDS ORDERED: DOCUSATE SODIUM 100 MG CAP PO PRN (22:30)
[2018-10-25] MEDS ORDERED: MAGNESIUM HYDROXIDE 30ML CUP PO PRN (22:30)
[2018-10-25] MEDS ORDERED: ZOLPIDEM 5 MG TAB PO PRN (22:30)
[2018-10-25 23:30] VITALS: BP 125/64; PULSE 76; RESP 20
[2018-10-25] MEDS: morphine 2 MG INJ IV PRN (23:53)
[2018-10-25] MEDS: NACL 0.9% 3 ML SYG IV SCH (23:54)
[2018-10-26 02:01] VITALS: Ht 177.8 cm; Wt 105.0 kg
[2018-10-26] MEDS: HYDROCODONE/APAP (5/325) TAB PO PRN ×3 (02:26→23:14)
[2018-10-26] MEDS: morphine 2 MG INJ IV PRN ×3 (04:28→14:56)
[2018-10-26] MEDS: LORAZEPAM 1 MG TAB PO SCH ×3 (06:59→21:55)
[2018-10-26] MEDS: PANTOPRAZOLE (EC) 40 MG TAB PO SCH (06:59)
[2018-10-26 07:27] VITALS: BP 137/82; PULSE 75; RESP 19
[2018-10-26] MEDS: CHOLECALCIFEROL 1,000 UNIT TAB PO SCH (09:03)
[2018-10-26] MEDS: GABAPENTIN 400 MG CAP PO SCH ×3 (09:03→21:55)
[2018-10-26] MEDS: ZINC SULFATE 220 MG CAP PO SCH (09:03)
[2018-10-26] MEDS: MULTIVITAMINS THERAPEUTIC TAB PO SCH (09:03)
[2018-10-26] MEDS: DOCUSATE SODIUM 100 MG CAP PO SCH ×3 (09:04→21:56)
[2018-10-26] MEDS: ASCORBIC ACID 500 MG TAB PO SCH (09:04)
[2018-10-26] MEDS: METOPROLOL 25 MG TAB PO SCH ×2 (09:05→21:56)
[2018-10-26] MEDS: HEPARIN 5,000 UNIT/1 ML VIAL SC SCH ×2 (09:06→21:59)
[2018-10-26] MEDS: VITAMIN B COMPLEX/VIT C CAP PO SCH (16:21)
--- NOTE | 2018-10-26 17:33 | RADRPT ---
Echocardiogram Report Patient Name: BLADE SAAVEDRAPatient ID: [id number] : 1940 (78y )Study Date: 10/26/2018 3:36:27 PM Gender: MAccession #: [id number] Tech: Humberto Mas [facility] Location: 431-A Ref.Physician: MIKE FRAGA Height(Cm): BSA: Weight(Kg): Quality: Technically Difficult StudyOrder Physician: MIKE FRAGA Account #: Procedures: Echocardiographic Report: Transthoracic echocardiogram with complete 2D, M-Mode, and doppler examination. Indications: Pre-op. Measurements: 2D/M Mode Doppler Measurement Value Normal Range Measurement Value Normal Range LVIDd 2D 6.6 [ 4.2 - 5.8 ] cm AV Peak Dm 1.0 [ 100.0 - 170.0 ] cm/sec LVIDs 2D 4.8 [ 2.5 - 4.0 ] cm AV Peak PG 4.0 [ 2.0 - 9.0 ] mmHg LVPWd 2D 1.3 [ 0.6 - 1.0 ] cm LVOT Peak Dm 0.8 [ 70.0 - 110.0 ] cm/sec IVSd 2D 1.3 [ 0.6 - 1.0 ] cm LVOT Peak PG 3.0 [ 2.0 - 6.0 ] mmHg AoR Diam 2D 3.5 [ 2.6 - 3.4 ] cm MV E Peak Dm 0.8 [ 60.0 - 130.0 ] cm/sec EDV 2D 221.0 [ 62.0 - 150.0 ] ml MV A Peak Dm 0.3 [ 100.0 - 120.0 ] cm/sec ESV 2D 105.0 [ 21.0 - 61.0 ] ml MV E/A 2.4 [ 0.8 - 1.5 ] ratio EF 2D 52.5 [ 52.0 - 72.0 ] percent MV Decel Time 201 [ 104 - 258 ] msec LA Dimen 2D 5.1 [ 3.0 - 4.0 ] cm Lat E` Dm 0.1 [ 10.0 - 15.0 ] cm/sec Lateral E/E` 9.1 [ 1.0 - 2.0 ] ratio Med E` Dm 0.0 cm/sec MV E/A 2.4 [ 0.8 - 1.5 ] ratio RA Pressure 10.0 mmHg Findings: Left Ventricle: Normal left ventricular systolic function. Mild concentric left ventricular hypertrophy. Mild enlargement of left ventricle cavity. Ejection fraction is visually estimated at 55 %. Abnormal Diastolic Function. Right Ventricle: Normal right ventricular size. Normal right ventricular systolic function. Left Atrium: There is moderate enlargement of left atrium. Right Atrium: The right atrium is normal in size. Mitral Valve: Mild mitral leaflet calcification. Mild mitral annular calcification. Trace mitral regurgitation. Aortic Valve: No significant aortic stenosis or insufficiency. Aortic valve not well visualized. Aortic cusps appear mildly calcified. Tricuspid Valve: Normal appearance of the tricuspid valve. Unable to obtain RVSP due to minimal presence of tricuspid regurgitation. Pericardium: Normal pericardium with no significant pericardial effusion. Aorta: Normal aortic root. IVC: Normal size and normal respiratory collapse consistent with normal right atrial pressure. Conclusions: There is moderate enlargement of left atrium. Normal left ventricular systolic function. Mild concentric left ventricular hypertrophy. Mild enlargement of left ventricle cavity. Ejection fraction is visually estimated at 55 %. Abnormal Diastolic Function. Mild mitral leaflet calcification. Mild mitral annular calcification. Trace mitral regurgitation. No significant aortic stenosis or insufficiency. Aortic valve not well visualized. Aortic cusps appear mildly calcified. Normal appearance of the tricuspid valve. Unable to obtain RVSP due to minimal presence of tricuspid regurgitation. Normal size and normal respiratory collapse consistent with normal right atrial pressure. Electronically Signed By: Faustino Yo 2018-10-26 17:32:14 PDT
--- NOTE | 2018-10-26 18:40 | CONS ---
Assessment/Plan Assessment/Plan Hospital Course (Demo Recall) 1. A. fib probably chronic currently on good heart rate control. He is on Eliquis at home 2. Status post fall ankle fracture 3. COPD 4. Hypertension 5. History of peripheral vascular disease status post left BKA . Obesity Recommendations: Patient heart rate is under control with the low-dose of beta-garfield. Discussed with Dr. Bryant orthopedic surgery who stated that the ankle fracture will be treated medically and not surgically at this point. We will check the PT/INR in the morning and will consider anticoagulation if the patient remains steady in his foot will resume eliquis if ok with ortho Thank you his referral. We will continue to follow along with you SIDRA HIDALGO MD [facility] Consultation Date/Type/Reason Admit Date/Time Oct 25, 2018 at 20:35 Date of Consultation: Oct 26, 2018 Type of Consult Cardiology Reason for Consultation cv preop . AFIB Requesting Provider: MIKE FRAGA MD Date/Time of Note DATE: 10/26/18 TIME: 18:25 Hx of Present Illness Interventional cardiology consultation note Chief complaint: S/P FALL with R foot pain Reason for consult: Cardiovascular preop evaluation, atrial fibrillation History of present illness: Thank you for this referral. History was obtained from the patient discussion with the staff and physician review of the old chart. This is a very pleasant 77-year-old gentleman with history of COPD possible history of atrial fibrillation, status post right BKA who presented emergency because of a fall. Patient said he tripped and he fell he had injured his right ankle. He has been evaluated possible ankle surgery. Patient denies letter chest pain or pressure to me denies any palpitation to me. He said that he has had a skipped beat but he is not aware if he had A. fib or not. He is not sure if he is taking Coumadin or not. He thinks it might be taking it but he is not certain Patient stated he is normally. History and does not fall much. PMH: diabetes mellitus, left below knee amputation, benign prostatic hypertrophy, hypertension, neuropathy. He does have a prosthesis. The patient is morbidly obese. probably AFIB SOCIAL HISTORY: He stopped smoking more than 35 years ago he smoked a pack a d ay about [id number] smoking. IVDA denies. The patient is , has 3 kids and multiple grand kids. Patient lives in an assisted living ALLERGIES: NO KNOWN DRUG ALLERGIES. SURGICAL HISTORY: Left below knee amputation. FAMILY HISTORY: Mother from old age. She was in the late 90s. Father from lung cancer. She was a heavy smoker. Medications were reviewed as per medical reconciliation sheet Review of system: Patient denies all others except for above-mentioned Past Medical History Home Meds Active Scripts Hydrocodone/Acetaminophen ([place] 5-325 Tablet) 1 Each Tablet, 1 EACH PO Q8, #20 TAB Prov:MIKE FRAGA MD 08/17/18 Methylprednisolone* (Medrol* DOSE PACK) 4 Mg/Dose-Pack Tab.ds.pk, 4 MG PO . DIRECTED for 6 Days, PACKET Prov:MIKE FRAGA MD 08/17/18 Levofloxacin* (Levaquin*) 500 Mg Tablet, 500 MG PO DAILY for 5 Days, TAB Prov:MIKE FRAGA MD 08/17/18 Ibuprofen* (Motrin*) 600 Mg Tab, 600 MG PO Q8 PRN for PAIN AND/OR INFLAMMATION, #30 TAB Prov:DARY SAAVEDRA MD 05/07/18 Reported Medications Zinc Sulfate* (Zinc Sulfate*) 220 Mg Cap, 220 MG PO DAILY, CAP 09/11/17 Ascorbic Acid* (Vitamin C*) 500 Mg Capsule.sa, 500 MG PO DAILY, CAP 09/11/17 Multivitamins* (Theragran*) 1 Tab Tab, 1 TAB PO DAILY, TAB 09/11/17 Gabapentin* (Gabapentin*) 800 Mg Tablet, 800 MG PO TID, #90 TAB 09/11/17 Cholecalciferol* (Vitamin D3*) 1,000 Unit Tablet, 2000 UNIT PO DAILY, TAB 09/11/17 Vitamin B Complex* (Vitamin B Complex*) 1 Each Tablet, 1 TAB PO DAILY, TAB 09/11/17 Ropinirole Hcl* (Ropinirole Hcl*) 0.5 Mg Tablet, 0.5 MG PO HS, TAB 09/11/17 Metoprolol Tartrate* (Lopressor*) 25 Mg Tab, 25 MG PO BID, #60 TAB 09/09/17 Tamsulosin Hcl* (Tamsulosin Hcl*) 0.4 Mg Cap.er.24h, 0.4 MG PO HS, CAP 09/09/17 Metformin* (Glucophage*) 500 Mg Tab, 500 MG PO DAILY, TAB 4/1/15 Lorazepam* (Lorazepam*) 1 Mg Tablet, 1 MG PO Q8, TAB 07/02/14 Docusate Sodium* (Colace*) 100 Mg Capsule, 100 MG PO TID, CAP 07/02/14 Discontinued Reported Medications Guaifenesin (MUCUS RELIEF CHEST) 400 Mg Tablet, 400 MG PO Q12, TAB 09/11/17 Saw [place]away Fruit (Saw [place]away) 450 Mg Capsule, 900 MG PO DAILY, CAP 09/11/17 Potassium Gluconate (Potassium Gluconate) 500 Mg Tablet, 500 MG PO BID, TAB 09/11/17 [place]-3 Acid Ethyl Esters (Lovaza) 1 Gm Capsule, 4 GM PO DAILY, CAP 09/11/17 Medications Current Medications IV Flush (NS 3 ml) 3 ml PER PROTOCOL IV Last administered on 10/25/18at 23:54; Admin Dose 3 ML; Start 10/25/18 at 22:30 Ondansetron HCl (Zofran Inj) 4 mg Q6H PRN IV NAUSEA/VOMITING; Start 10/25/18 at 22:30 Acetaminophen (Tylenol Tab) 650 mg Q6H PRN PO .PAIN 1-3 OR TEMP; Start 10/25/18 at 22:30 Acetaminophen/ Hydrocodone Bitart ([place] (5/325)) 1 tab Q6H PRN PO .MOD PAIN 4- 6 Last administered on 10/26/18at 11:55; Admin Dose 1 TAB; Start 10/25/18 at 22:30 Docusate Sodium (Colace) 100 mg Q12H PRN PO .CONSTIPATION; Start 10/25/18 at 22:30 Magnesium Hydroxide (Milk Of Mag) 30 ml DAILY PRN PO .CONSTIPATION; Start 10/25/18 at 22:30 Zolpidem Tartrate (Ambien) 5 mg QHS PRN PO .INSOMNIA; Start 10/25/18 at 22:30 Pantoprazole (Protonix Tab) 40 mg DAILY@06 PO Last administered on 10/26/18at 06:59; Admin Dose 40 MG; Start 10/26/18 at 06:00 Heparin Sodium (Porcine) (Heparin (5000 Units/1ml)) 5,000 unit Q12 SC Last administered on 10/26/18at 09:06; Admin Dose 5,000 UNIT; Start 10/26/18 at 09:00 Ascorbic Acid (Vitamin C) 500 mg DAILY PO Last administered on 10/26/18 09:04; Admin Dose 500 MG; Start 10/26/18 at 09:00 Cholecalciferol (Vitamin D) 2,000 unit DAILY PO Last administered on 10/26/18 09:03; Admin Dose 2,000 UNIT; Start 10/26/18 at 09:00 Docusate Sodium (Colace) 100 mg TID PO Last administered on 10/26/18 15:04; Admin Dose 100 MG; Start 10/26/18 at 09:00 Gabapentin (Neurontin) 800 mg TID PO Last administered on 10/26/18 15:03; Admin Dose 800 MG; Start 10/26/18 at 09:00 Lorazepam (Ativan) 1 mg Q8 PO Last administered on 10/26/18 15:03; Admin Dose 1 MG; Start 10/26/18 at 06:00 Metoprolol Tartrate (Lopressor) 25 mg BID PO Last administered on 10/26/18 09:05; Admin Dose 25 MG; Start 10/26/18 at 09:00 Multivitamins Therapeutic (Theragran) 1 tab DAILY PO Last administered on 10/26/18 09:03; Admin Dose 1 TAB; Start 10/26/18 at 09:00 Ropinirole HCl (Requip) 0.5 mg HS PO ; Start 10/26/18 at 21:00 Tamsulosin HCl (Flomax) 0.4 mg HS PO ; Start 10/26/18 at 21:00 Vitamin B Complex/ Vitamin C (Berocca) 1 cap DAILY PO Last administered on 10/26/18 16:21; Admin Dose 1 CAP; Start 10/26/18 at 09:00 Zinc Sulfate (Zinc Sulfate) 220 mg DAILY PO Last administered on 10/26/18 09:03; Admin Dose 220 MG; Start 10/26/18 at 09:00 Morphine Sulfate (morphine) 4 mg Q4H PRN IV .SEVERE PAIN 7-10; Start 10/26/18 at 15:30 Allergies: Coded Allergies: No Known Allergy (Unverified , 10/26/18) Social History Smoking Status: Never smoker Exam/Review of Systems Vital Signs Vitals Vital Signs Date Temp Pulse Resp B/P (MAP) Pulse Ox O2 O2 Flow FiO2 Time Delivery Rate 10/26/18 97.2 75 19 137/82 98 07:27 (100) 10/25/18 Room Air 23:00 Intake and Output 10/25/18 10/25/18 10/26/18 1414:59 22:59 06:59 IntakeIntake Total 1590 ml OutputOutput Total 1220 ml BalanceBalance 370 ml Exam Exam General: This gentleman in no acute distress HEENT: NC/AT. pupils are equal. round. NECK: NO JVD. no stridor. CV: Regularly irregular. systolic murmur; no gallop or rubs. PULM: no wheezing or rhonchi. GI: SOFT, NT, ND, no rebound or guarding Extremity: Left BKA. Right foot is in cast neuro: awake and alert, OX3. Psych: calm and pleasant rectal: deferred : normal EKG was personally showed A. fib Echocardiogram was personally reviewed which showed: There is moderate enlargement of left atrium. Normal left ventricular systolic function. Mild concentric left ventricular hypertrophy. Mild enlargement of left ventricle cavity. Ejection fraction is visually estimated at 55 %. Abnormal Diastolic Function. Mild mitral leaflet calcification. Mild mitral annular calcification. Trace mitral regurgitation. No significant aortic stenosis or insufficiency. Aortic valve not well visualized. Aortic cusps appear mildly calcified. Normal appearance of the tricuspid valve. Unable to obtain RVSP due to minimal presence of tricuspid regurgitation. Normal size and normal respiratory collapse consistent with normal right atrial pressure. Ankle x-ray shows: Medial and lateral malleolus fractures. Soft tissue swelling over the lateral malleolus and anterior ankle. Ligamentous and tendinous injury is not excluded. If characterization of the ligaments and tendons is needed MRI is recommended. Subtle heterotopic calcification along the inter margin of the distal tibia. Finding could be the sequelae of degenerative change. Achilles insertion and plantar calcaneal heel spurs. Labs Result Diagram: 10/26/18 0432 10/26/18 0432 Results 24hrs Laboratory Tests Test 10/25/18 18:56 10/25/18 20:07 10/26/18 04:32 10/26/18 08:30 Bedside Glucose 123 123 White Blood Count 10.7 # 8.9 Red Blood Count 4.70 4.69 L Hemoglobin 14.6 14.5 Hematocrit 44.1 44.9 Mean Corpuscular 93.8 95.7 Volume Mean Corpuscular 31.1 30.9 Hemoglobin Mean Corpuscular 33.1 32.3 Hemoglobin Concent Red Cell 14.7 H 15.0 H Distribution Width Platelet Count 175 175 Mean Platelet Volume 10.4 10.9 H Immature 0.900 H 0.800 H Granulocytes % Neutrophils % 56.3 40.8 Lymphocytes % 30.8 41.9 Monocytes % 10.2 13.3 H Eosinophils % 1.5 2.9 Basophils % 0.3 0.3 Nucleated Red Blood 0.0 0.0 Cells % Immature 0.100 H 0.070 H Granulocytes # Neutrophils # 6.0 3.6 Lymphocytes # 3.3 H 3.7 H Monocytes # 1.1 H 1.2 H Eosinophils # 0.2 0.3 Basophils # 0.0 0.0 Nucleated Red Blood 0.0 0.0 Cells # Sodium Level 135 135 Potassium Level 4.4 4.6 Chloride Level 98 99 Carbon Dioxide Level 30 30 Anion Gap 7 6 Blood Urea Nitrogen 20 20 Creatinine 1.37 H 1.42 H Est Glomerular Filtrat Rate mL/min Glucose Level 117 128 Calcium Level 9.2 8.7 Total Bilirubin 0.6 0.7 Direct Bilirubin 0.00 0.00 Indirect Bilirubin 0.6 0.7 Aspartate Amino 26 26 Transf (AST/SGOT) Alanine 30 29 Aminotransferase (AL T/SGPT) Alkaline Phosphatase 68 60 Troponin I < 0.012 Total Protein 7.0 6.7 Albumin 3.8 3.7 Globulin 3.20 3.00 Albumin/Globulin 1.18 1.23 Ratio Medications Medications Current Medications IV Flush (NS 3 ml) 3 ml PER PROTOCOL IV Last administered on 10/25/18at 23:54; Admin Dose 3 ML; Start 10/25/18 at 22:30 Ondansetron HCl (Zofran Inj) 4 mg Q6H PRN IV NAUSEA/VOMITING; Start 10/25/18 at 22:30 Acetaminophen (Tylenol Tab) 650 mg Q6H PRN PO .PAIN 1-3 OR TEMP; Start 10/25/18 at 22:30 Acetaminophen/ Hydrocodone Bitart ([place] (5/325)) 1 tab Q6H PRN PO .MOD PAIN 4- 6 Last administered on 10/26/18at 11:55; Admin Dose 1 TAB; Start 10/25/18 at 22:30 Docusate Sodium (Colace) 100 mg Q12H PRN PO .CONSTIPATION; Start 10/25/18 at 22:30 Magnesium Hydroxide (Milk Of Mag) 30 ml DAILY PRN PO .CONSTIPATION; Start 10/25/18 at 22:30 Zolpidem Tartrate (Ambien) 5 mg QHS PRN PO .INSOMNIA; Start 10/25/18 at 22:30 Pantoprazole (Protonix Tab) 40 mg DAILY@06 PO Last administered on 10/26/18 06:59; Admin Dose 40 MG; Start 10/26/18 at 06:00 Heparin Sodium (Porcine) (Heparin (5000 Units/1ml)) 5,000 unit Q12 SC Last administered on 10/26/18 09:06; Admin Dose 5,000 UNIT; Start 10/26/18 at 09:00 Ascorbic Acid (Vitamin C) 500 mg DAILY PO Last administered on 10/26/18 09:04; Admin Dose 500 MG; Start 10/26/18 at 09:00 Cholecalciferol (Vitamin D) 2,000 unit DAILY PO Last administered on 10/26/18 09:03; Admin Dose 2,000 UNIT; Start 10/26/18 at 09:00 Docusate Sodium (Colace) 100 mg TID PO Last administered on 10/26/18 15:04; Admin Dose 100 MG; Start 10/26/18 at 09:00 Gabapentin (Neurontin) 800 mg TID PO Last administered on 10/26/18 15:03; Admin Dose 800 MG; Start 10/26/18 at 09:00 Lorazepam (Ativan) 1 mg Q8 PO Last administered on 10/26/18 15:03; Admin Dose 1 MG; Start 10/26/18 at 06:00 Metoprolol Tartrate (Lopressor) 25 mg BID PO Last administered on 10/26/18 09:05; Admin Dose 25 MG; Start 10/26/18 at 09:00 Multivitamins Therapeutic (Theragran) 1 tab DAILY PO Last administered on 10/26/18 09:03; Admin Dose 1 TAB; Start 10/26/18 at 09:00 Ropinirole HCl (Requip) 0.5 mg HS PO ; Start 10/26/18 at 21:00 Tamsulosin HCl (Flomax) 0.4 mg HS PO ; Start 10/26/18 at 21:00 Vitamin B Complex/ Vitamin C (Berocca) 1 cap DAILY PO Last administered on 10/26/18at 16:21; Admin Dose 1 CAP; Start 10/26/18 at 09:00 Zinc Sulfate (Zinc Sulfate) 220 mg DAILY PO Last administered on 10/26/18at 09:03; Admin Dose 220 MG; Start 10/26/18 at 09:00 Morphine Sulfate (morphine) 4 mg Q4H PRN IV .SEVERE PAIN 7-10; Start 10/26/18 at 15:30 SIDRA HIDALGO MD Oct 26, 2018 18:35
[2018-10-26 19:50] VITALS: BP 133/72; PULSE 68; RESP 20
[2018-10-26] MEDS: morphine 4 MG/ML VIAL IV PRN (21:10)
[2018-10-26] MEDS: TAMSULOSIN (SR) 0.4 MG CAP PO SCH (21:55)
[2018-10-26] MEDS: ROPINIROLE 0.25 MG TAB PO SCH (21:55)
--- NOTE | 2018-10-26 23:43 | HP ---
DATE OF ADMISSION: 10/25/2018 REASON FOR ADMISSION: Right ankle fracture status post fall. HISTORY OF PRESENT ILLNESS: The patient is a 77-year-old male with history of diabetes luis fernando litus, left below the knee amputation, benign prostatic hypertrophy, hypertension, former smoker, mor e than 30 years ago and history of chronic obstructive pulmonary disease. The patient was admitted r ecently under my care back in August due to COPD exacerbation and lower extremity pain due to new periph eral neuropathy. The patient does use a prosthesis and he was in usual state of health up until the day of admission when he unfortunately felt that his right leg is collapsing and he basically unfortu nately fell. He complained of pain in the right ankle and he was brought into [facility]. In the ER, the patient underwent various tests including a pelvic x-ray which sh owed degenerative changes in the lower lumbar spine and pubic symphysis. No visualized traumatic inj ury. There is osteopenia, and vascular calcification. If there is high clinical suspicion, recommen d CT. Foot x-ray of the right showed lateral malleolus fracture, old healed 5th metatarsal fracture, hallux valgus hammertoe deformities of the second through fifth toes, mild degenerative change of th e calcaneal cuboid joint, subtalar heterotopic calcification of the anterior margin of the distal tib ia. This could be sequela of degenerative changes of the tibiotalar joint, plantar calcaneal and Ach illes insertion heel spurs. If high suspicion for additional traumatic injury, further evaluation wi th CT should be considered. Ankle x-ray shows medial and lateral malleolus fracture. The soft tissu e swelling over the lateral malleolus and anterior ankle, ligamentous and tendinous injury is not exc luded. May need an MRI. Chest x-ray showed no acute cardiopulmonary disease demonstrated. Ultimate ly, it was decided to admit the patient for further care as Dr. Tyler Bryant, the orthopedic doctor, was consulted for further recommendations. Right foot was banded. The patient is admitted. He denies any chest pain or shortness of breath, complaining of neuropathy to the lower extremities. PAST MEDICAL HISTORY: Includes diabetes mellitus, left below the knee amputation, BPH, hypertension, neuropathy. He does have a prosthesis, history of morbidly obese state. SOCIAL HISTORY: Stopped smoking more than 35 years ago. He smoked a pack a day for [address] javier arshad denies. The patient is . He has 3 kids and multiple grandkids. ALLERGIES: NO DRUG ALLERGIES. SURGICAL HISTORY: Left below the knee amputation. He said also he had multiple surgeries prior to t hat amputation to save the leg. FAMILY HISTORY: Mother from old age. She was in the late 90s. Father from lung cancer. She was a heavy smoker. MEDICATIONS: Include: 1. Ibuprofen p.r.n. 2. Levaquin as directed. She finished that previously. 3. Medrol Dosepak. 4. [place] p.r.n. 5. as directed. 6. Ativan p.r.n. 7. Metformin 500 mg daily. 8. Flomax 0.4 at bedtime. 9. Metoprolol tartrate 25 b.i.d. 10. [place] 3. 11. Lovaza 4 caps daily. 12. Ropinirole 0.5 at bedtime. 13. Vitamin B complex as directed. 14. Vitamin D3 2000 daily. 15. Potassium gluconate 500 b.i.d. 16. Saw palmetto ____ daily. 17. Gabapentin 800 t.i.d. 18. Multivitamin 1 tab daily. 19. Vitamin C 500 mg daily. 20. Zinc sulfate 220 daily. 21. Robitussin p.r.n. REVIEW OF SYSTEMS: Per HPI. PHYSICAL EXAMINATION: VITAL SIGNS: Temperature is 97.2, pulse 75, respiration 19, blood pressure 137/82, saturation 98% on room air. GENERAL: The patient is in no acute distress. HEENT: Normocephalic, atraumatic. Pale. CARDIOVASCULAR: S1, S2, regular rate. LUNGS: Clear. ABDOMEN: Soft, nontender, overweight. EXTREMITIES: Right leg is banded. Left BKA. LABS AND TESTS: EKG, I could not see one, right now. NEW LIST OF MEDICATIONS: 1. Doxazosin 4 mg at bedtime. 2. Duloxetine 60 mg 2 capsules daily. 3. Lasix 20 mg daily. 4. Glimepiride 2 mg daily. 5. Magnesium oxide 400 mg daily. 6. Metformin 500 mg daily. 7. Protonix 40 mg daily. 8. KCl 8 mEq daily. 9. Ropinirole 0.5 mg at bedtime. 10. Flomax 0.4 mg at bedtime. 11. Vascepa 1 gram daily. 12. Vitamin D 2000 daily. 13. Zolpidem as directed. 14. Amitiza 24 mcg b.i.d. 15. Eliquis 5 mg twice a day. 16. Metoprolol tartrate 25 mg b.i.d. 17. Potassium gluconate 595 b.i.d. 18. Colace 100 mg b.i.d. 19. Gabapentin 800 mg t.i.d. 20. Lorazepam p.r.n. 21. Albuterol and Atrovent as directed. 22. Vitamin C 500 mg daily. 23. Cephalexin recently given 500 mg, but he stopped that. 24. Lidocaine as directed. 25. Melatonin 10 mg. 26. Multivitamin 1 tab daily. 27. Prednisone finished. 28. Levaquin finished. 29. Ventolin. 30. [place] p.r.n. ASSESSMENT AND PLAN: This is an unfortunate 77-year-old obese male with history of diabete s mellitus, peripheral vascular disease, hypertension who presented with a fall, was found to have a right ankle fracture. 1. Right ankle fracture. Pain control to be provided. The patient will be seen by the orthopedic d octsalo for further recommendation. We will consult cardiology for cardiac clearance. 2. Diabetes mellitus. Accu-Chek q.a.c. and at bedtime with insulin coverage will be provided. 3. The patient with moderate risk factors of poor functional capacity. Again, Cardiology will be co nsulted. We will obtain an echocardiogram and EKG prior to possible surgery. 4. Neuropathy. Continue Neurontin. 5. Continue gastrointestinal prophylaxis with Protonix. Hold Eliquis. 6. Benign prostatic hypertrophy. Continue meds including Flomax. Dictated By: MIKE BUSBY/EVAN Conf#: [id number] DID#: [id number]
--- NOTE | 2018-10-27 00:41 | CONS ---
DATE OF ADMISSION: 10/25/2018 DATE OF CONSULTATION: 10/26/2018 TYPE OF CONSULTATION: Orthopedic surgical HISTORY OF PRESENT ILLNESS: The patient is a 77-year-old male, a resident of [facility], with known history of diabetes, hypertension, COPD, peripheral vascular insufficiency and BPH. He obviously developed a painful swelling involving his right ankle following a ground-level fall and w as brought into the emergency room. Following initial evaluation which revealed the fracture involvi ng the right ankle he was admitted. Of interest is that he already had a BK amputation of the left lower extremity because of the periphe ral vascular insufficiency. PHYSICAL EXAMINATION: My examination revealed a 77-year-old male who was not in any acute distress. His right lower extremity was immobilized in a short-leg posterior splint. Examination through the splint revealed that there is a swelling and tenderness involving the right ankle. There was no obvi ous open injury. There were no signs of neurovascular compromise. DIAGNOSTIC STUDIES: X-rays of the right ankle revealed an obvious fracture involving the lateral mal leolus of the right ankle. In spite of the fracture the ankle mortise was maintained in satisfactory alignment and the fracture was not displaced. DIAGNOSTIC IMPRESSION: 1. Fracture of the lateral malleolus of the right ankle without any change in the ankle mortise. 2. Status post BK amputation of the left lower extremity. RECOMMENDATIONS FOR TREATMENT: 1. Immobilization of the right ankle in a short-leg CAM walker brace. 2. Can be up and around with the brace on, with a walker. 3. Okay to be discharged if he can tolerate ambulation with a CAM walker brace on his right ankle an d if he can control his pain with the oral analgesics, then he can be discharged back to the group home [facility]. 4. Further followup can be done as an outpatient in 2 weeks with repeated x-rays of the right ankle. Dictated By: SAGAR AGUERO/EVAN Conf#: [id number] DID#: [id number]
[2018-10-27] MEDS: morphine 4 MG/ML VIAL IV PRN ×4 (01:03→18:02)
[2018-10-27] MEDS: NACL 0.9% 3 ML SYG IV SCH (01:03)
[2018-10-27 02:00] VITALS: BP 167/99; PULSE 71; RESP 20
[2018-10-27 02:15] VITALS: BP 132/89
[2018-10-27] MEDS: LORAZEPAM 1 MG TAB PO SCH ×3 (06:06→22:41)
[2018-10-27] MEDS: PANTOPRAZOLE (EC) 40 MG TAB PO SCH (06:06)
[2018-10-27 07:30] VITALS: BP 126/71; PULSE 76; RESP 18
[2018-10-27] MEDS: ZINC SULFATE 220 MG CAP PO SCH (08:09)
[2018-10-27] MEDS: CHOLECALCIFEROL 1,000 UNIT TAB PO SCH (08:09)
[2018-10-27] MEDS: MULTIVITAMINS THERAPEUTIC TAB PO SCH (08:09)
[2018-10-27] MEDS: DOCUSATE SODIUM 100 MG CAP PO SCH ×3 (08:09→20:23)
[2018-10-27] MEDS: GABAPENTIN 400 MG CAP PO SCH ×3 (08:09→20:23)
[2018-10-27] MEDS: ASCORBIC ACID 500 MG TAB PO SCH (08:09)
[2018-10-27] MEDS: VITAMIN B COMPLEX/VIT C CAP PO SCH (08:09)
[2018-10-27] MEDS: METOPROLOL 25 MG TAB PO SCH ×2 (08:09→20:30)
[2018-10-27] MEDS: HEPARIN 5,000 UNIT/1 ML VIAL SC SCH (08:12)
--- NOTE | 2018-10-27 13:33 | PN ---
DATE: 10/27/2018 SUBJECTIVE: I appreciate Dr. Tyler Bryant's input. The patient has a fracture of the lateral malleolus of the right ankle without any change in the ankle mortise. Overall, plan for immobilization with a short-leg CAM walker brace, and then he can get up and around with the brace and follow up with Dr. Bryant in 2 weeks. Awaiting the CAM to be delivered. Also, would like him to participate with physical therapy prior to discharge. PHYSICAL EXAMINATION: VITAL SIGNS: Temperature 97.6, pulse 76, respirations 18, blood pressure 126/71, saturation 93% on r oom air. GENERAL: The patient is in no acute distress. HEENT: Normocephalic, atraumatic, pale. CARDIOVASCULAR: S1, S2. LUNGS: Decreased bilaterally. ABDOMEN: Soft, obese. EXTREMITIES: Left BKA. Right ankle is banded. LABORATORY DATA: White count 8.4, hemoglobin 15.1, hematocrit 46, platelet count is 171, neutrophils 49%, lymphocytes 34%. Chemistry: Sodium is 136, potassium 5.1, chloride 99, bicarbonate 30, BUN is 16, creatinine 1.26, and glucose of 163. BNP is slightly high at 464, triglycerides high at 271. C holesterol 189, LDL 98. TSH is 10.2 with a free T4 of 1.13. May consider starting him on low-dose S ynthroid for subacute hypothyroidism. MEDICATIONS: Reviewed, they include: 1. Requip 0.5 at bedtime. 2. Flomax 0.4 at bedtime. 3. Morphine p.r.n. 4. Heparin 5000 q.12. 5. Vitamin C 500 mg daily. 6. Vitamin D 2000 daily. 7. Colace 100 t.i.d. 8. Neurontin 800 t.i.d. 9. Lopressor 25 b.i.d. 10. Multivitamin 1 tab daily. 11. Vitamin B complex daily. 12. Zinc sulfate daily. 13. Protonix 40 mg daily. 14. Ativan 1 mg q.8 hours. 15. Zofran. 16. Tylenol. 17. [place] p.r.n. 18. Colace p.r.n. 19. Milk of magnesia p.r.n. 20. Ambien p.r.n. ASSESSMENT AND PLAN: This is a 77-year-old obese male with history of diabetes mellitus, p eripheral vascular disease, left below-knee amputation, hypertension who sustained a fall, has a righ t ankle fracture. 1. Right ankle fracture, awaiting special controlled ankle movement brace. Physical therapy to see the patient thereafter. Pain control and follow up with Dr. Tyler Bryant upon discharge. 2. Diabetes mellitus. Continue Accu-Chek. 3. Subacute hypothyroidism. Start the patient on Synthroid 25 mcg daily. Follow up thyroid-stimula ting hormone level in a few weeks. 4. Neuropathy. Continue Neurontin. 5. Continue gastrointestinal prophylaxis. 6. History of paroxysmal atrial fibrillation. Continue with Eliquis. There is currently no plan fo r surgery as the patient has a history of atrial fibrillation. Again, noted Dr. Yo's recommendat ion to make sure patient is steady on his foot prior to restarting anticoagulation. 7. Benign prostatic hypertrophy. Continue Flomax. Dictated By: MIKE BUSBY/EVAN Conf#: [id number] DID#: [id number] CC: MIKE FRAGA MD;*EndCC*
[2018-10-27 14:00] VITALS: BP 131/76; PULSE 71; RESP 18
--- NOTE | 2018-10-27 16:35 | CONS ---
Consult Date/Type/Reason Admit Date/Time Oct 27, 2018 at 12:54 Initial Consult Date 10/26/18 Type of Consultation: cv Requesting Provider: MIKE FRAGA MD Date/Time of Note DATE: 10/27/18 TIME: 16:33 Subjective CARDIOLOGY FOLLOW UP NOTE S D/W staff pt with no chest pain or pressure. no palpitations no bleeding O: General: This gentleman in no acute distress HEENT: NC/AT. pupils are equal. round. NECK: NO JVD. no stridor. CV: Regularly irregular. systolic murmur; no gallop or rubs. PULM: no wheezing or rhonchi. GI: SOFT, NT, ND, no rebound or guarding Extremity: Left BKA. Right foot is in cast neuro: awake and alert, OX3. Psych: calm and pleasant rectal: deferred : normal EKG was personally showed A. fib Echocardiogram was personally reviewed which showed: There is moderate enlargement of left atrium. Normal left ventricular systolic function. Mild concentric left ventricular hypertrophy. Mild enlargement of left ventricle cavity. Ejection fraction is visually estimated at 55 %. Abnormal Diastolic Function. Mild mitral leaflet calcification. Mild mitral annular calcification. Trace mitral regurgitation. No significant aortic stenosis or insufficiency. Aortic valve not well visualized. Aortic cusps appear mildly calcified. Normal appearance of the tricuspid valve. Unable to obtain RVSP due to minimal presence of tricuspid regurgitation. Normal size and normal respiratory collapse consistent with normal right atrial pressure. Ankle x-ray shows: Medial and lateral malleolus fractures. Soft tissue swelling over the lateral malleolus and anterior ankle. Ligamentous and tendinous injury is not excluded. If characterization of the ligaments and tendons is needed MRI is recommended. Subtle heterotopic calcification along the inter margin of the distal tibia. Finding could be the sequelae of degenerative change. Achilles insertion and plantar calcaneal heel spurs. Objective Vitals Vital Signs Date Temp Pulse Resp B/P (MAP) Pulse Ox O2 O2 Flow FiO2 Time Delivery Rate 10/27/18 97.9 71 18 131/76 94 Room Air 14:00 (94) Intake and Output 10/26/18 10/26/18 10/27/18 1515:00 23:00 07:00 IntakeIntake Total 300 ml 350 ml OutputOutput Total 600 ml 1420 ml 2000 ml BalanceBalance -600 ml -1120 ml -1650 ml Results/Medications Result Diagram: 10/27/18 0633 10/27/18 0633 Results 24 hrs Laboratory Tests Test 10/27/18 06:33 10/27/18 06:34 White Blood Count 8.4 Red Blood Count 4.83 Hemoglobin 15.1 Hematocrit 45.6 Mean Corpuscular Volume 94.4 Mean Corpuscular Hemoglobin 31.3 Mean Corpuscular Hemoglobin Concent 33.1 Red Cell Distribution Width 14.6 H Platelet Count 171 Mean Platelet Volume 10.6 H Immature Granulocytes % 0.600 H Neutrophils % 49.1 Lymphocytes % 34.1 Monocytes % 12.0 H Eosinophils % 3.6 Basophils % 0.6 Nucleated Red Blood Cells % 0.0 Immature Granulocytes # 0.050 H Neutrophils # 4.1 Lymphocytes # 2.9 Monocytes # 1.0 H Eosinophils # 0.3 Basophils # 0.1 Nucleated Red Blood Cells # 0.0 Prothrombin Time 13.3 Prothrombin Time Ratio 1.0 INR International Normalized Ratio 1.00 Activated Partial Thromboplast Time 34.9 Sodium Level 136 Potassium Level 5.1 Chloride Level 99 Carbon Dioxide Level 30 Anion Gap 7 Blood Urea Nitrogen 16 Creatinine 1.26 H Est Glomerular Filtrat Rate mL/min Glucose Level 163 Calcium Level 9.2 Total Bilirubin 1.5 H Direct Bilirubin 0.00 Indirect Bilirubin 1.5 H Aspartate Amino Transf (AST/SGOT) 31 Alanine Aminotransferase (ALT/SGPT) 30 Alkaline Phosphatase 77 Total Protein 7.3 Albumin 4.0 Globulin 3.30 H Albumin/Globulin Ratio 1.21 Free Thyroxine 1.13 Digoxin Level < 0.4 L Phosphorus Level 3.7 Magnesium Level 2.0 B-Type Natriuretic Peptide 464 H Triglycerides Level 271 H Cholesterol Level 189 LDL Cholesterol, Calculated 98 HDL Cholesterol 37 Cholesterol/HDL Ratio 5.1 Thyroid Stimulating Hormone (TSH) 10.200 H Home Meds Active Scripts Hydrocodone/Acetaminophen ([place] 5-325 Tablet) 1 Each Tablet, 1 EACH PO Q8, #20 TAB Prov:MIKE FRAGA MD 08/17/18 Methylprednisolone* (Medrol* DOSE PACK) 4 Mg/Dose-Pack Tab.ds.pk, 4 MG PO . DIRECTED for 6 Days, PACKET Prov:MIKE FRAGA MD 08/17/18 Levofloxacin* (Levaquin*) 500 Mg Tablet, 500 MG PO DAILY for 5 Days, TAB Prov:MIKE FRAGA MD 08/17/18 Ibuprofen* (Motrin*) 600 Mg Tab, 600 MG PO Q8 PRN for PAIN AND/OR INFLAMMATION, #30 TAB Prov:DARY SAAVEDRA MD 05/07/18 Reported Medications Zinc Sulfate* (Zinc Sulfate*) 220 Mg Cap, 220 MG PO DAILY, CAP 09/11/17 Ascorbic Acid* (Vitamin C*) 500 Mg Capsule.sa, 500 MG PO DAILY, CAP 09/11/17 Multivitamins* (Theragran*) 1 Tab Tab, 1 TAB PO DAILY, TAB 09/11/17 Gabapentin* (Gabapentin*) 800 Mg Tablet, 800 MG PO TID, #90 TAB 09/11/17 Cholecalciferol* (Vitamin D3*) 1,000 Unit Tablet, 2000 UNIT PO DAILY, TAB 09/11/17 Vitamin B Complex* (Vitamin B Complex*) 1 Each Tablet, 1 TAB PO DAILY, TAB 09/11/17 Ropinirole Hcl* (Ropinirole Hcl*) 0.5 Mg Tablet, 0.5 MG PO HS, TAB 09/11/17 Metoprolol Tartrate* (Lopressor*) 25 Mg Tab, 25 MG PO BID, #60 TAB 09/09/17 Tamsulosin Hcl* (Tamsulosin Hcl*) 0.4 Mg Cap.er.24h, 0.4 MG PO HS, CAP 09/09/17 Metformin* (Glucophage*) 500 Mg Tab, 500 MG PO DAILY, TAB 07/02/14 Lorazepam* (Lorazepam*) 1 Mg Tablet, 1 MG PO Q8, TAB 07/02/14 Docusate Sodium* (Colace*) 100 Mg Capsule, 100 MG PO TID, CAP 07/02/14 Discontinued Reported Medications Guaifenesin (MUCUS RELIEF CHEST) 400 Mg Tablet, 400 MG PO Q12, TAB 09/11/17 Saw [place] Fruit (Saw [place]) 450 Mg Capsule, 900 MG PO DAILY, CAP 09/11/17 Potassium Gluconate (Potassium Gluconate) 500 Mg Tablet, 500 MG PO BID, TAB 09/11/17 [place]-3 Acid Ethyl Esters (Lovaza) 1 Gm Capsule, 4 GM PO DAILY, CAP 09/11/17 Medications Current Medications IV Flush (NS 3 ml) 3 ml PER PROTOCOL IV Last administered on 10/27/18at 01:03; Admin Dose 3 ML; Start 7/25/19 at 22:30 Ondansetron HCl (Zofran Inj) 4 mg Q6H PRN IV NAUSEA/VOMITING; Start 10/25/18 at 22:30 Acetaminophen (Tylenol Tab) 650 mg Q6H PRN PO .PAIN 1-3 OR TEMP; Start 10/25/18 at 22:30 Acetaminophen/ Hydrocodone Bitart ([place] (5/325)) 1 tab Q6H PRN PO .MOD PAIN 4- 6 Last administered on 10/26/18at 23:14; Admin Dose 1 TAB; Start 10/25/18 at 22:30 Docusate Sodium (Colace) 100 mg Q12H PRN PO .CONSTIPATION; Start 10/25/18 at 22:30 Magnesium Hydroxide (Milk Of Mag) 30 ml DAILY PRN PO .CONSTIPATION; Start 10/25/18 at 22:30 Zolpidem Tartrate (Ambien) 5 mg QHS PRN PO .INSOMNIA; Start 10/25/18 at 22:30 Pantoprazole (Protonix Tab) 40 mg DAILY@06 PO Last administered on 10/27/18 06:06; Admin Dose 40 MG; Start 10/26/18 at 06:00 Ascorbic Acid (Vitamin C) 500 mg DAILY PO Last administered on 10/27/18 08:09; Admin Dose 500 MG; Start 10/26/18 at 09:00 Cholecalciferol (Vitamin D) 2,000 unit DAILY PO Last administered on 10/27/18 08:09; Admin Dose 2,000 UNIT; Start 10/26/18 at 09:00 Docusate Sodium (Colace) 100 mg TID PO Last administered on 10/27/18 13:03; Admin Dose 100 MG; Start 10/26/18 at 09:00 Gabapentin (Neurontin) 800 mg TID PO Last administered on 10/27/18 13:03; Admin Dose 800 MG; Start 10/26/18 at 09:00 Lorazepam (Ativan) 1 mg Q8 PO Last administered on 10/27/18 13:03; Admin Dose 1 MG; Start 10/26/18 at 06:00 Metoprolol Tartrate (Lopressor) 25 mg BID PO Last administered on 10/27/18 08:09; Admin Dose 25 MG; Start 10/26/18 at 09:00 Multivitamins Therapeutic (Theragran) 1 tab DAILY PO Last administered on 10/27/18 08:09; Admin Dose 1 TAB; Start 10/26/18 at 09:00 Ropinirole HCl (Requip) 0.5 mg HS PO Last administered on 10/26/18 21:55; Admin Dose 0.5 MG; Start 10/26/18 at 21:00 Tamsulosin HCl (Flomax) 0.4 mg HS PO Last administered on 10/26/18 21:55; Admin Dose 0.4 MG; Start 10/26/18 at 21:00 Vitamin B Complex/ Vitamin C ([place]) 1 cap DAILY PO Last administered on 10/27/18 08:09; Admin Dose 1 CAP; Start 10/26/18 at 09:00 Zinc Sulfate (Zinc Sulfate) 220 mg DAILY PO Last administered on 10/27/18 08:09; Admin Dose 220 MG; Start 10/26/18 at 09:00 Morphine Sulfate (morphine) 4 mg Q4H PRN IV .SEVERE PAIN 7-10 Last administered on 10/27/18 13:08; Admin Dose 4 MG; Start 10/26/18 at 15:30 Levothyroxine Sodium (Synthroid) 25 mcg DAILY@06 PO ; Start 10/28/18 at 06:00 Apixaban (Eliquis) 5 mg BID PO ; Start 10/27/18 at 21:00 Assessment/Plan Hospital Course (Demo Recall) 1. A. fib probably chronic currently on good heart rate control. 2. malleolus fracture 3. COPD 4. Hypertension 5. History of peripheral vascular disease status post left BKA 6. Obesity Recommendations: Patient heart rate is under control with the low-dose of beta-garfield. Discussed with Dr. Bryant orthopedic surgery who stated that the ankle fracture will be treated medically and not surgically at this point. cont eliquis f/u ortho rec Thank you his referral. We will continue to follow along with you SIDRA HIDALGO MD [facility] SIDRA HIDALGO MD Oct 27, 2018 16:35
[2018-10-27 20:00] VITALS: BP 142/88; PULSE 66; RESP 18
[2018-10-27] MEDS: ROPINIROLE 0.25 MG TAB PO SCH (20:23)
[2018-10-27] MEDS: TAMSULOSIN (SR) 0.4 MG CAP PO SCH (20:23)
[2018-10-27] MEDS: HYDROCODONE/APAP (5/325) TAB PO PRN (20:24)
[2018-10-27] MEDS: APIXABAN 5 MG TABLET PO SCH (20:24)
[2018-10-28] MEDS: morphine 4 MG/ML VIAL IV PRN ×6 (00:47→22:21)
[2018-10-28 02:42] VITALS: BP 154/89; PULSE 65; RESP 20
[2018-10-28] MEDS: LORAZEPAM 1 MG TAB PO SCH ×3 (07:06→21:02)
[2018-10-28] MEDS: PANTOPRAZOLE (EC) 40 MG TAB PO SCH (07:06)
[2018-10-28] MEDS: LEVOTHYROXINE 25 MCG TAB PO SCH (07:06)
[2018-10-28 07:48] VITALS: BP 140/67; PULSE 83; RESP 16
[2018-10-28] MEDS: ZINC SULFATE 220 MG CAP PO SCH (08:30)
[2018-10-28] MEDS: ASCORBIC ACID 500 MG TAB PO SCH (08:31)
[2018-10-28] MEDS: CHOLECALCIFEROL 1,000 UNIT TAB PO SCH (08:31)
[2018-10-28] MEDS: APIXABAN 5 MG TABLET PO SCH ×2 (08:31→21:02)
[2018-10-28] MEDS: MULTIVITAMINS THERAPEUTIC TAB PO SCH (08:31)
[2018-10-28] MEDS: METOPROLOL 25 MG TAB PO SCH ×2 (08:31→21:03)
[2018-10-28] MEDS: DOCUSATE SODIUM 100 MG CAP PO SCH ×3 (08:31→21:02)
[2018-10-28] MEDS: GABAPENTIN 400 MG CAP PO SCH ×3 (08:31→21:02)
[2018-10-28] MEDS: VITAMIN B COMPLEX/VIT C CAP PO SCH (08:31)
--- NOTE | 2018-10-28 13:34 | CONS ---
Consult Date/Type/Reason Admit Date/Time Oct 27, 2018 at 12:54 Initial Consult Date 10/26/18 Type of Consultation: cv Requesting Provider: MIKE FRAGA MD Date/Time of Note DATE: 10/28/18 TIME: 13:32 Subjective CARDIOLOGY FOLLOW UP NOTE S D/W staff pt with no chest pain or pressure. no palpitations no bleeding Patient had multiple questions regarding risk of CVA/etc. which were answered O: General: This gentleman in no acute distress HEENT: NC/AT. pupils are equal. round. NECK: NO JVD. no stridor. CV: Regularly irregular. systolic murmur; no gallop or rubs. PULM: no wheezing or rhonchi. GI: SOFT, NT, ND, no rebound or guarding Extremity: Left BKA. Right foot is in cast neuro: awake and alert, OX3. Psych: calm and pleasant rectal: deferred : normal EKG was personally showed A. fib Echocardiogram was personally reviewed which showed: There is moderate enlargement of left atrium. Normal left ventricular systolic function. Mild concentric left ventricular hypertrophy. Mild enlargement of left ventricle cavity. Ejection fraction is visually estimated at 55 %. Abnormal Diastolic Function. Mild mitral leaflet calcification. Mild mitral annular calcification. Trace mitral regurgitation. No significant aortic stenosis or insufficiency. Aortic valve not well visualized. Aortic cusps appear mildly calcified. Normal appearance of the tricuspid valve. Unable to obtain RVSP due to minimal presence of tricuspid regurgitation. Normal size and normal respiratory collapse consistent with normal right atrial pressure. Ankle x-ray shows: Medial and lateral malleolus fractures. Soft tissue swelling over the lateral malleolus and anterior ankle. Ligamentous and tendinous injury is not excluded. If characterization of the ligaments and tendons is needed MRI is recommended. Subtle heterotopic calcification along the inter margin of the distal tibia. Finding could be the sequelae of degenerative change. Achilles insertion and plantar calcaneal heel spurs. Objective Vitals Vital Signs Date Temp Pulse Resp B/P (MAP) Pulse Ox O2 O2 Flow FiO2 Time Delivery Rate 10/28/18 98.0 83 16 140/67 95 Room Air 07:48 (91) Intake and Output 10/27/18 10/27/18 10/28/18 1515:00 23:00 07:00 IntakeIntake Total 1400 ml 350 ml OutputOutput Total 1650 ml 600 ml BalanceBalance -250 ml -250 ml Results/Medications Result Diagram: 10/27/1863210/27/18632 Home Meds Active Scripts Hydrocodone/Acetaminophen ([place] 5-325 Tablet) 1 Each Tablet, 1 EACH PO Q8, #20 TAB Prov:MIKE FRAGA MD 08/17/18 Methylprednisolone* (Medrol* DOSE PACK) 4 Mg/Dose-Pack Tab.ds.pk, 4 MG PO . DIRECTED for 6 Days, PACKET Prov:MIKE FRAGA MD 08/17/18 Levofloxacin* (Levaquin*) 500 Mg Tablet, 500 MG PO DAILY for 5 Days, TAB Prov:MIKE FRAGA MD 08/17/18 Ibuprofen* (Motrin*) 600 Mg Tab, 600 MG PO Q8 PRN for PAIN AND/OR INFLAMMATION, #30 TAB Prov:DARY SAAVEDRA MD 05/07/18 Reported Medications Zinc Sulfate* (Zinc Sulfate*) 220 Mg Cap, 220 MG PO DAILY, CAP 09/11/17 Ascorbic Acid* (Vitamin C*) 500 Mg Capsule.sa, 500 MG PO DAILY, CAP 09/11/17 Multivitamins* (Theragran*) 1 Tab Tab, 1 TAB PO DAILY, TAB 09/11/17 Gabapentin* (Gabapentin*) 800 Mg Tablet, 800 MG PO TID, #90 TAB 09/11/17 Cholecalciferol* (Vitamin D3*) 1,000 Unit Tablet, 2000 UNIT PO DAILY, TAB 09/11/17 Vitamin B Complex* (Vitamin B Complex*) 1 Each Tablet, 1 TAB PO DAILY, TAB 09/11/17 Ropinirole Hcl* (Ropinirole Hcl*) 0.5 Mg Tablet, 0.5 MG PO HS, TAB 09/11/17 Metoprolol Tartrate* (Lopressor*) 25 Mg Tab, 25 MG PO BID, #60 TAB 09/09/17 Tamsulosin Hcl* (Tamsulosin Hcl*) 0.4 Mg Cap.er.24h, 0.4 MG PO HS, CAP 09/09/17 Metformin* (Glucophage*) 500 Mg Tab, 500 MG PO DAILY, TAB 07/02/14 Lorazepam* (Lorazepam*) 1 Mg Tablet, 1 MG PO Q8, TAB 07/02/14 Docusate Sodium* (Colace*) 100 Mg Capsule, 100 MG PO TID, CAP 07/02/14 Discontinued Reported Medications Guaifenesin (MUCUS RELIEF CHEST) 400 Mg Tablet, 400 MG PO Q12, TAB 09/11/17 Saw [place] Fruit (Saw [place]) 450 Mg Capsule, 900 MG PO DAILY, CAP 09/11/17 Potassium Gluconate (Potassium Gluconate) 500 Mg Tablet, 500 MG PO BID, TAB 09/11/17 [place]-3 Acid Ethyl Esters (Lovaza) 1 Gm Capsule, 4 GM PO DAILY, CAP 09/11/17 Medications Current Medications IV Flush (NS 3 ml) 3 ml PER PROTOCOL IV Last administered on 10/27/18at 01:03; Admin Dose 3 ML; Start 10/25/18 at 22:30 Ondansetron HCl (Zofran Inj) 4 mg Q6H PRN IV NAUSEA/VOMITING; Start 10/25/18 at 22:30 Acetaminophen (Tylenol Tab) 650 mg Q6H PRN PO .PAIN 1-3 OR TEMP; Start 10/25/18 at 22:30 Acetaminophen/ Hydrocodone Bitart ([place] (5/325)) 1 tab Q6H PRN PO .MOD PAIN 4- 6 Last administered on 10/27/18at 20:24; Admin Dose 1 TAB; Start 10/25/18 at 22:30 Docusate Sodium (Colace) 100 mg Q12H PRN PO .CONSTIPATION; Start 10/25/18 at 22:30 Magnesium Hydroxide (Milk Of Mag) 30 ml DAILY PRN PO .CONSTIPATION; Start 10/25/18 at 22:30 Zolpidem Tartrate (Ambien) 5 mg QHS PRN PO .INSOMNIA; Start 10/25/18 at 22:30 Pantoprazole (Protonix Tab) 40 mg DAILY@06 PO Last administered on 10/28/18at 07:06; Admin Dose 40 MG; Start 10/26/18 at 06:00 Ascorbic Acid (Vitamin C) 500 mg DAILY PO Last administered on 10/28/18at 08:31; Admin Dose 500 MG; Start 10/26/18 at 09:00 Cholecalciferol (Vitamin D) 2,000 unit DAILY PO Last administered on 10/28/18at 08:31; Admin Dose 2,000 UNIT; Start 10/26/18 at 09:00 Docusate Sodium (Colace) 100 mg TID PO Last administered on 10/28/18 12:18; Admin Dose 100 MG; Start 10/26/18 at 09:00 Gabapentin (Neurontin) 800 mg TID PO Last administered on 10/28/18 12:18; Admin Dose 800 MG; Start 10/26/18 at 09:00 Lorazepam (Ativan) 1 mg Q8 PO Last administered on 10/28/18 13:16; Admin Dose 1 MG; Start 10/26/18 at 06:00 Metoprolol Tartrate (Lopressor) 25 mg BID PO Last administered on 10/28/18 08:31; Admin Dose 25 MG; Start 10/26/18 at 09:00 Multivitamins Therapeutic (Theragran) 1 tab DAILY PO Last administered on 10/28/18 08:31; Admin Dose 1 TAB; Start 10/26/18 at 09:00 Ropinirole HCl (Requip) 0.5 mg HS PO Last administered on 10/27/18 20:23; Admin Dose 0.5 MG; Start 10/26/18 at 21:00 Tamsulosin HCl (Flomax) 0.4 mg HS PO Last administered on 10/27/18 20:23; Admin Dose 0.4 MG; Start 10/26/18 at 21:00 Vitamin B Complex/ Vitamin C (Berocca) 1 cap DAILY PO Last administered on 10/28/18 08:31; Admin Dose 1 CAP; Start 10/26/18 at 09:00 Zinc Sulfate (Zinc Sulfate) 220 mg DAILY PO Last administered on 10/28/18 08:30; Admin Dose 220 MG; Start 10/26/18 at 09:00 Morphine Sulfate (morphine) 4 mg Q4H PRN IV .SEVERE PAIN 7-10 Last administered on 10/28/18 13:16; Admin Dose 4 MG; Start 10/26/18 at 15:30 Levothyroxine Sodium (Synthroid) 25 mcg DAILY@06 PO Last administered on 10/28/18 07:06; Admin Dose 25 MCG; Start 10/28/18 at 06:00 Apixaban (Eliquis) 5 mg BID PO Last administered on 10/28/18 08:31; Admin Dose 5 MG; Start 10/27/18 at 21:00 Assessment/Plan Hospital Course (Demo Recall) 1. A. fib chronic currently on good heart rate control and on Eliquis 2. malleolus fracture 3. COPD 4. Hypertension 5. History of peripheral vascular disease status post left BKA 6. Obesity Recommendations: Patient heart rate is under control with the low-dose of beta-garfield. Discussed with Dr. Bryant orthopedic surgery who stated that the ankle fracture will be treated medically and not surgically at this point. cont eliquis f/u ortho rec Thank you his referral. We will continue to follow along with you SIDRA HIDALGO MD [facility] SIDRA HIDALGO MD Oct 28, 2018 13:34
--- NOTE | 2018-10-28 19:55 | PN ---
DATE: 10/28/2018 SUBJECTIVE: The patient was seen. Cam brace was delivered. Noted behavioral health case manager input regarding sakshi ent's discharge planning as [facility] may have difficulty taking him back. We discussed this w [facility] behavioral health case manager. The patient still requesting to go back to [facility]. No events overnight. PHYSICAL EXAMINATION: VITAL SIGNS: Temperature 98, pulse 83, respirations 16, blood pressure 140/67, saturation 95%. GENERAL: No acute distress. HEENT: Normocephalic, atraumatic. pale. CARDIOVASCULAR: S1, S2, regular rate. LUNGS: Clear. ABDOMEN: Soft. EXTREMITIES: Right foot in a special brace. Left BKA. LABORATORY DATA: White count 8.4, hemoglobin 15.1, hematocrit 46, platelet count 171, neutrophils 49 %, lymphocytes 34%. Chemistry: Sodium 136, potassium 5.1, chloride 99, bicarbonate 30, BUN is 16, c reatinine 0.26, glucose 163. BNP is high at 464, Triglycerides were high at 271, cholesterol 189, LD L 98. TSH 10.2 with a free T4 low normal at 1.13. MEDICATIONS: The patient's medications reviewed, include: 1. Synthroid 25 mL daily. 2. Eliquis 5 mg b.i.d. 3. Requip 0.5 at bedtime. 4. Flomax 0.4 at bedtime. 5. Morphine sulfate p.r.n. 6. Vitamin C 500 mg daily. 7. Vitamin D 2000 daily. 8. Colace 100 b.i.d. 9. Neurontin 800 mg t.i.d. 10. Lopressor 25 b.i.d. 11. Multivitamin 1 tab daily. 12. Vitamin B complex daily. 13. Zinc sulfate 220 daily. 14. Protonix 40 mg daily. 15. Ativan 1 mg q.8 hours. 16. Zofran. 17. Tylenol. 18. [place]. 19. Colace. 20. Milk of magnesia. 21. Ambien p.r.n. ASSESSMENT AND PLAN: This is a 77-year-old obese male with a history of diabetes mellitus, peripheral vascular disease, left below the knee amputation, hypertension, sustained a fall at the r ight ankle fracture. 1. Right ankle fracture. No need for surgical intervention and a Cam brace walker was placed, full weightbearing per Dr. Bryant, but he definitely needs his prosthesis for the left leg to be able to walk . May consider jail facility for physical therapy if [facility] cannot accommodate t he patient. Will discuss with case management. 2. Diabetes mellitus. Continue Accu-Cheks. 3. Subacute hypothyroidism. Continue Synthroid 25 mL daily. Follow up TSH in a few weeks. 4. Neuropathy. Continue Neurontin. 5. Chronic anxiety. Anxiolytics are being given. 6. Paroxysmal atrial fibrillation. Eliquis was restarted. Continue beta blockers for rate control. 7. Benign prostatic hypertrophy. Continue Flomax. DISPOSITION: Tomorrow in the SNF or back to [facility]. Will discuss with case management. Dictated By: MIKE BUSBY/EVAN Conf#: [id number] DID#: [id number]
[2018-10-28 20:24] VITALS: BP 144/90; PULSE 86; RESP 19
[2018-10-28] MEDS: ROPINIROLE 0.25 MG TAB PO SCH (21:02)
[2018-10-28] MEDS: TAMSULOSIN (SR) 0.4 MG CAP PO SCH (21:03)
[2018-10-29] MEDS: morphine 4 MG/ML VIAL IV PRN ×4 (03:45→17:38)
[2018-10-29] MEDS: LORAZEPAM 1 MG TAB PO SCH ×2 (06:00→14:10)
[2018-10-29] MEDS: PANTOPRAZOLE (EC) 40 MG TAB PO SCH (06:37)
[2018-10-29] MEDS: LEVOTHYROXINE 25 MCG TAB PO SCH (06:37)
[2018-10-29 08:05] VITALS: BP 148/75; PULSE 76; RESP 19
[2018-10-29] MEDS: GABAPENTIN 400 MG CAP PO SCH ×2 (08:50→13:10)
[2018-10-29] MEDS: DOCUSATE SODIUM 100 MG CAP PO SCH ×2 (08:50→13:10)
[2018-10-29] MEDS: MULTIVITAMINS THERAPEUTIC TAB PO SCH (08:50)
[2018-10-29] MEDS: APIXABAN 5 MG TABLET PO SCH (08:50)
[2018-10-29] MEDS: ASCORBIC ACID 500 MG TAB PO SCH (08:50)
[2018-10-29] MEDS: ZINC SULFATE 220 MG CAP PO SCH (08:50)
[2018-10-29] MEDS: VITAMIN B COMPLEX/VIT C CAP PO SCH (08:50)
[2018-10-29] MEDS: CHOLECALCIFEROL 1,000 UNIT TAB PO SCH (08:50)
[2018-10-29] MEDS: METOPROLOL 25 MG TAB PO SCH (08:51)
--- NOTE | 2018-10-29 14:37 | CONS ---
Consult Date/Type/Reason Admit Date/Time Oct 27, 2018 at 12:54 Initial Consult Date 10/26/18 Type of Consultation: cv Requesting Provider: MIKE FRAGA MD Date/Time of Note DATE: 10/29/18 TIME: 14:36 Subjective CARDIOLOGY FOLLOW UP NOTE S D/W staff pt with no chest pain or pressure. no palpitations no bleeding less foot pain O: General: This gentleman in no acute distress HEENT: NC/AT. pupils are equal. round. NECK: NO JVD. no stridor. CV: Regularly irregular. systolic murmur; no gallop or rubs. PULM: no wheezing or rhonchi. GI: SOFT, NT, ND, no rebound or guarding Extremity: Left BKA. Right foot is in dressing neuro: awake and alert, OX3. Psych: calm and pleasant rectal: deferred : normal EKG was personally showed A. fib Echocardiogram was personally reviewed which showed: There is moderate enlargement of left atrium. Normal left ventricular systolic function. Mild concentric left ventricular hypertrophy. Mild enlargement of left ventricle cavity. Ejection fraction is visually estimated at 55 %. Abnormal Diastolic Function. Mild mitral leaflet calcification. Mild mitral annular calcification. Trace mitral regurgitation. No significant aortic stenosis or insufficiency. Aortic valve not well visualized. Aortic cusps appear mildly calcified. Normal appearance of the tricuspid valve. Unable to obtain RVSP due to minimal presence of tricuspid regurgitation. Normal size and normal respiratory collapse consistent with normal right atrial pressure. Ankle x-ray shows: Medial and lateral malleolus fractures. Soft tissue swelling over the lateral malleolus and anterior ankle. Ligamentous and tendinous injury is not excluded. If characterization of the ligaments and tendons is needed MRI is recommended. Subtle heterotopic calcification along the inter margin of the distal tibia. Finding could be the sequelae of degenerative change. Achilles insertion and plantar calcaneal heel spurs. Objective Vitals Vital Signs Date Temp Pulse Resp B/P (MAP) Pulse Ox O2 O2 Flow FiO2 Time Delivery Rate 10/29/18 97.9 76 19 148/75 96 08:05 (99) 10/28/18 Room Air 07:48 Intake and Output 10/28/18 10/28/18 10/29/18 1515:00 23:00 07:00 IntakeIntake Total 600 ml 940 ml OutputOutput Total 480 ml 950 ml 500 ml BalanceBalance 120 ml -10 ml -500 ml Results/Medications Result Diagram: 10/27/18 0633 10/27/1833 Results 24 hrs Laboratory Tests Test 10/28/18 18:17 Bedside Glucose 182 Home Meds Active Scripts Hydrocodone/Acetaminophen ([place] 5-325 Tablet) 1 Each Tablet, 1 EACH PO Q8, #20 TAB Prov:MIKE FRAGA MD 08/17/18 Methylprednisolone* (Medrol* DOSE PACK) 4 Mg/Dose-Pack Tab.ds.pk, 4 MG PO . DIRECTED for 6 Days, PACKET Prov:MIKE FRAGA MD 08/17/18 Levofloxacin* (Levaquin*) 500 Mg Tablet, 500 MG PO DAILY for 5 Days, TAB Prov:MIKE FRAGA MD 08/17/18 Ibuprofen* (Motrin*) 600 Mg Tab, 600 MG PO Q8 PRN for PAIN AND/OR INFLAMMATION, #30 TAB Prov:DARY SAAVEDRA MD 05/07/18 Reported Medications Zinc Sulfate* (Zinc Sulfate*) 220 Mg Cap, 220 MG PO DAILY, CAP 09/11/17 Ascorbic Acid* (Vitamin C*) 500 Mg Capsule.sa, 500 MG PO DAILY, CAP 09/11/17 Multivitamins* (Theragran*) 1 Tab Tab, 1 TAB PO DAILY, TAB 09/11/17 Gabapentin* (Gabapentin*) 800 Mg Tablet, 800 MG PO TID, #90 TAB 09/11/17 Cholecalciferol* (Vitamin D3*) 1,000 Unit Tablet, 2000 UNIT PO DAILY, TAB 09/11/17 Vitamin B Complex* (Vitamin B Complex*) 1 Each Tablet, 1 TAB PO DAILY, TAB 09/11/17 Ropinirole Hcl* (Ropinirole Hcl*) 0.5 Mg Tablet, 0.5 MG PO HS, TAB 09/11/17 Metoprolol Tartrate* (Lopressor*) 25 Mg Tab, 25 MG PO BID, #60 TAB 09/09/17 Tamsulosin Hcl* (Tamsulosin Hcl*) 0.4 Mg Cap.er.24h, 0.4 MG PO HS, CAP 09/09/17 Metformin* (Glucophage*) 500 Mg Tab, 500 MG PO DAILY, TAB 07/02/14 Lorazepam* (Lorazepam*) 1 Mg Tablet, 1 MG PO Q8, TAB 07/02/14 Docusate Sodium* (Colace*) 100 Mg Capsule, 100 MG PO TID, CAP 07/02/14 Discontinued Reported Medications Guaifenesin (MUCUS RELIEF CHEST) 400 Mg Tablet, 400 MG PO Q12, TAB 09/11/17 [place] Fruit (Saw [place]) 450 Mg Capsule, 900 MG PO DAILY, CAP 09/11/17 Potassium Gluconate (Potassium Gluconate) 500 Mg Tablet, 500 MG PO BID, TAB 09/11/17 Central-3 Acid Ethyl Esters (Lovaza) 1 Gm Capsule, 4 GM PO DAILY, CAP 09/11/17 Medications Current Medications IV Flush (NS 3 ml) 3 ml PER PROTOCOL IV Last administered on 10/27/18at 01:03; Admin Dose 3 ML; Start 10/25/18 at 22:30 Ondansetron HCl (Zofran Inj) 4 mg Q6H PRN IV NAUSEA/VOMITING; Start 10/25/18 at 22:30 Acetaminophen (Tylenol Tab) 650 mg Q6H PRN PO .PAIN 1-3 OR TEMP; Start 10/25/18 at 22:30 Acetaminophen/ Hydrocodone Bitart ([place] (5/325)) 1 tab Q6H PRN PO .MOD PAIN 4- 6 Last administered on 10/27/18at 20:24; Admin Dose 1 TAB; Start 10/25/18 at 22:30 Docusate Sodium (Colace) 100 mg Q12H PRN PO .CONSTIPATION; Start 10/25/18 at 22:30 Magnesium Hydroxide (Milk Of Mag) 30 ml DAILY PRN PO .CONSTIPATION Last administered on 10/29/18at 03:41; Admin Dose 30 ML; Start 10/25/18 at 22:30 Zolpidem Tartrate (Ambien) 5 mg QHS PRN PO .INSOMNIA Last administered on 10/28/18at 21:17; Admin Dose 5 MG; Start 10/25/18 at 22:30 Pantoprazole (Protonix Tab) 40 mg DAILY@06 PO Last administered on 10/29/18at 06:37; Admin Dose 40 MG; Start 10/26/18 at 06:00 Ascorbic Acid (Vitamin C) 500 mg DAILY PO Last administered on 10/29/18at 08:50; Admin Dose 500 MG; Start 10/26/18 at 09:00 Cholecalciferol (Vitamin D) 2,000 unit DAILY PO Last administered on 10/29/18 08:50; Admin Dose 2,000 UNIT; Start 10/26/18 at 09:00 Docusate Sodium (Colace) 100 mg TID PO Last administered on 10/29/18 13:10; A dmin Dose 100 MG; Start 10/26/18 at 09:00 Gabapentin (Neurontin) 800 mg TID PO Last administered on 10/29/18 13:10; Admin Dose 800 MG; Start 10/26/18 at 09:00 Lorazepam (Ativan) 1 mg Q8 PO Last administered on 10/29/18 14:10; Admin Dose 1 MG; Start 10/26/18 at 06:00 Metoprolol Tartrate (Lopressor) 25 mg BID PO Last administered on 10/29/18 08:51; Admin Dose 25 MG; Start 10/26/18 at 09:00 Multivitamins Therapeutic (Theragran) 1 tab DAILY PO Last administered on 10/29/18 08:50; Admin Dose 1 TAB; Start 10/26/18 at 09:00 Ropinirole HCl (Requip) 0.5 mg HS PO Last administered on 10/28/18 21:02; Admin Dose 0.5 MG; Start 10/26/18 at 21:00 Tamsulosin HCl (Flomax) 0.4 mg HS PO Last administered on 10/28/18 21:03; Admin Dose 0.4 MG; Start 10/26/18 at 21:00 Vitamin B Complex/ Vitamin C (Berocca) 1 cap DAILY PO Last administered on 10/29/18 08:50; Admin Dose 1 CAP; Start 10/26/18 at 09:00 Zinc Sulfate (Zinc Sulfate) 220 mg DAILY PO Last administered on 10/29/18 08:50; Admin Dose 220 MG; Start 10/26/18 at 09:00 Morphine Sulfate (morphine) 4 mg Q4H PRN IV .SEVERE PAIN 7-10 Last administered on 10/29/18 13:11; Admin Dose 4 MG; Start 10/26/18 at 15:30 Levothyroxine Sodium (Synthroid) 25 mcg DAILY@06 PO Last administered on 10/29/18 06:37; Admin Dose 25 MCG; Start 10/28/18 at 06:00 Apixaban (Eliquis) 5 mg BID PO Last administered on 10/29/18at 08:50; Admin Dose 5 MG; Start 10/27/18 at 21:00 Assessment/Plan Hospital Course (Demo Recall) 1. A. fib chronic currently on good heart rate control and on Eliquis 2. malleolus fracture 3. COPD 4. Hypertension 5. History of peripheral vascular disease status post left BKA 6. Obesity Recommendations: Patient heart rate is under control with the low-dose of beta-[place]. cont eliquis f/u ortho rec Thank you his referral. We will continue to follow along with you SIDRA HIDALGO MD [facility] SIDRA HIDALGO MD Oct 29, 2018 14:37
[2018-10-29 16:09] VITALS: BP 142/89; PULSE 111
--- NOTE | 2018-10-29 18:17 | PN ---
DATE: 10/29/2018 SUBJECTIVE: The patient seen. He has been participating with physical therapy and has prosthesis an d is able to walk with his prosthesis in the right Cam walker, noted physical therapy note. We did request possible transfer to the acute rehab at [facility]. PHYSICAL EXAMINATION: VITAL SIGNS: Temperature 97.9, pulse 76, respiration 19, blood pressure 148/75, saturation 96%. GENERAL: No acute distress, pale. CARDIOVASCULAR: S1, S2, regular rate. LUNGS: Clear. ABDOMEN: Soft, obese. EXTREMITIES: Left BKA. Right leg in a Cam walker. LABORATORY DATA: White count was 8.4, hemoglobin 15.1, hematocrit 46, platelet count 171. This was on 10/27, with normal differential. Chemistry: Last glucose level 182. BUN and creatinine was 16/1 .26. Triglycerides high at 271. TSH 10.2, free T4 1.13. CURRENT MEDICATIONS: Include: 1. Synthroid 25 mcg daily. 2. Eliquis 5 mg b.i.d. 3. Requip 0.5 at bedtime. 4. Flomax 0.4 at bedtime. 5. Morphine sulfate p.r.n. 6. Vitamin C 500 mg daily. 7. Vitamin D 2000 daily. 8. Colace 100 t.i.d. 9. Neurontin 800 t.i.d. 10. Lopressor 25 b.i.d. 11. Multivitamin 1 tab daily. 12. Vitamin B complex 1 tab daily. 13. Zinc sulfate 220 daily. 14. ____ mg daily. 15. Ativan 1 mg q.8h. 16. Zofran. 17. Tylenol. 18. Lutsen. 19. Colace. 20. Milk of magnesia. 21. Ambien p.r.n. ASSESSMENT AND PLAN: This is a 77-year-old, obese male with history of diabetes mellitus, peripheral vascular disease, left below the knee amputation, hypertension who sustained a right ankle fracture. 1. Right ankle fracture. Continue physical therapy, pain control, Cam brace walker in place. Kitty nue physical therapy. 2. Diabetes mellitus. Continue Accu-Cheks. 3. Subacute hypothyroidism on Synthroid 25 mcg daily. Follow up TSH levels in a few weeks. 4. Neuropathy. Continue Neurontin. 5. Chronic anxiety, on anxiolytics. 6. Paroxysmal atrial fibrillation. Eliquis will be restarted. Also, on beta blockers, rate contro lled. Appreciate Dr. Yo's followup. 6. Benign prostatic hypertrophy. Continue Flomax. DISPOSITION: Either to the rehab at [facility] or to the [facility] facility for ongoing thera py. We will follow. Case discussed with case management. Dictated By: MIKE BUSBY/EVAN Conf#: [id number] DID#: [id number]
[2018-10-29 19:45] VITALS: BP 160/78; PULSE 69; RESP 20
--- NOTE | 2018-11-06 21:35 | DS ---
DATE OF ADMISSION: 10/27/2018 DATE OF DISCHARGE: 10/29/2018 REASON FOR ADMISSION: Right ankle fracture status post fall. HOSPITAL COURSE: The patient is a 78-year-old male with history of diabetes mellitus, left below the knee amputation, BPH, hypertension, former smoker, history of COPD who was admitted previo usly under my care in August for COPD exacerbation and peripheral neuropathy. The patient does use a pr osthesis for his left leg, but unfortunately sustained a fall and complained of severe pain in the ri ght ankle. He presented to [facility] Emergency [facility] where he underwent various tests , including an x-ray of the right ankle, which shows a lateral malleolus fracture, old healed 5th met atarsal fracture. Ultimately, it was decided to admit the patient for further care. Dr. Tyler Bryant w as consulted, the internal corrosion specialist. During his stay, he also was seen by Dr. Faustino Yo due t o patient's and for possible clearance for surgery, but ultimately Dr. Tyler Bryant stated that patient does not need surgery, and he recommended immobilization of the right ankle in a short leg CAM walker brace, can be up and around with a walker. Okay to start physical therapy. Ultimately, it was deci ded to send him to the acute rehab at [facility] for physical therapy, pain control . The patient will be discharged to the acute rehab at [facility] with the following medica tions: 1. Synthroid 25. This patient's TSH was noted to be elevated. 2. Eliquis 5 mg b.i.d. 3. Requip for anticoagulation for atrial fibrillation. 4. Requip 0.5 5. Flomax 0.4 mg at bedtime. 6. Vitamin C 500 mg daily. 7. Vitamin D 2000 daily. 8. Colace 100 t.i.d. 9. Neurontin 800 t.i.d. 10. Lopressor 25 b.i.d. 11. Multivitamin 1 tab daily. 12. Vitamin B complex 1 tab daily. 13. Zinc sulfate 220 daily. 14. Ativan p.r.n. 15. Also p.r.n. medications for constipation and pain. The patient will be discharged in fair condition to the rehab unit. FINAL DIAGNOSES: 1. Right ankle fracture. Conservative management. 2. Diabetes mellitus. 3. Benign prostatic hypertrophy. 4. Diabetic neuropathy. 5. Obese state. 6. Paroxysmal atrial fibrillation. 9. Dyslipidemia. 10. Psychiatric disorder. 11. History of chronic. 12. Depression. 13. Mild chronic kidney disease. The patient to be showing fair condition. DIET: ADA 1800, 2-gram sodium. ACTIVITY: As tolerated at the rehab. Dictated By: MIKE BUSBY/EVAN Conf#: [id number] DID#: [id number]
== END 2018-10-29 20:10 | DRG 563 ==
LOC: E/R 18:13 → MS1 20:35 → OBSVTOIN 10-27 12:54
PROVIDERS: ADMIT Internal Medicine; ATTEND Internal Medicine
PROC: 2W3QX3Z Immobilization of Right Lower Leg using Brace (ICD-10-PCS; principal; 2018-10-28)
DX: S82.61XA Displaced fracture of lateral malleolus of right fibula, initial encounter for closed fracture (principal); E11.40 Type 2 diabetes mellitus with diabetic neuropathy, unspecified; E11.51 Type 2 diabetes mellitus with diabetic peripheral angiopathy without gangrene; Z89.512 Acquired absence of left leg below knee; N40.0 Benign prostatic hyperplasia without lower urinary tract symptoms; I10 Essential (primary) hypertension; E66.01 Morbid (severe) obesity due to excess calories; Z68.33 Body mass index [BMI] 33.0-33.9, adult; Z87.891 Personal history of nicotine dependence; W01.0XXA Fall on same level from slipping, tripping and stumbling without subsequent striking against object, initial encounter; E03.9 Hypothyroidism, unspecified; I48.0 Paroxysmal atrial fibrillation; F41.9 Anxiety disorder, unspecified
CPT/HCPCS: 36415; 71045; 72170; 73630; 80053; 80061; 80162; 82962; 83735; 83880; 84100; 84439; 84443; 84484; 85025; 85610; 85730; 93005; 93306; 96374; 97116; 97162; G0378; J1644; J2270; L4387

== ENCOUNTER 2018-10-29 20:18 | Inpatient (IN) | payer MEDICARE, OTHER ==
[~2018-10-29] VITALS: Ht 177.8 cm; Wt 115.0 kg
[2018-10-29 20:10] VITALS: BP 150/81; PULSE 74; RESP 18
[~2018-10-29 20:18] MED LIST changes: -GUAI400T44 PO; -OMEG1CAP2 PO; -POTA2TAB14 PO; -SAW450CA7 PO
[2018-10-29 20:30] VITALS: Ht 177.8 cm; Wt 115.0 kg
[2018-10-29] MEDS ORDERED: LACTULOSE 30ML CUP PO PRN (21:00)
[2018-10-29] MEDS ORDERED: BISACODYL 10 MG SUPP PR PRN (21:00)
[2018-10-29] MEDS ORDERED: MAGNESIUM HYDROXIDE 30ML CUP PO PRN (21:00)
[2018-10-29] MEDS: ROPINIROLE 0.25 MG TAB PO SCH (22:16)
[2018-10-29] MEDS: DOCUSATE SODIUM 100 MG CAP PO SCH (22:16)
[2018-10-29] MEDS: SENNA TAB PO SCH (22:17)
[2018-10-29] MEDS: TAMSULOSIN (SR) 0.4 MG CAP PO SCH (22:17)
[2018-10-29] MEDS: LORAZEPAM 1 MG TAB PO SCH (22:17)
[2018-10-29] MEDS: GABAPENTIN 400 MG CAP PO SCH (22:17)
[2018-10-29] MEDS: APIXABAN 5 MG TABLET PO SCH (22:17)
[2018-10-29] MEDS: METOPROLOL 25 MG TAB PO SCH (22:17)
[2018-10-30 02:00] VITALS: BP 148/87; PULSE 72; RESP 18
[2018-10-30] MEDS ORDERED: DOCUSATE SODIUM 100 MG CAP PO PRN (03:00)
[2018-10-30] MEDS ORDERED: ACETAMINOPHEN 325 MG TAB PO PRN (03:00)
[2018-10-30] MEDS ORDERED: ONDANSETRON 4 MG INJ IV PRN (03:00)
[2018-10-30] MEDS: HYDROCODONE/APAP (5/325) TAB PO PRN ×2 (03:45→21:03)
[2018-10-30] MEDS: PANTOPRAZOLE (EC) 40 MG TAB PO SCH (06:58)
[2018-10-30] MEDS: LORAZEPAM 1 MG TAB PO SCH ×3 (06:58→21:02)
[2018-10-30] MEDS: LEVOTHYROXINE 25 MCG TAB NGT SCH (06:58)
[2018-10-30 07:30] VITALS: BP 120/70; PULSE 72; RESP 18
[2018-10-30] MEDS: GABAPENTIN 400 MG CAP PO SCH ×3 (10:18→21:03)
[2018-10-30] MEDS: ZINC SULFATE 220 MG CAP PO SCH (10:18)
[2018-10-30] MEDS: MULTIVITAMINS THERAPEUTIC TAB PO SCH (10:18)
[2018-10-30] MEDS: ASCORBIC ACID 500 MG TAB PO SCH (10:18)
[2018-10-30] MEDS: CHOLECALCIFEROL 2,000 UNIT CAP PO SCH (10:19)
[2018-10-30] MEDS: APIXABAN 5 MG TABLET PO SCH ×2 (10:19→21:03)
[2018-10-30] MEDS: DOCUSATE SODIUM 100 MG CAP PO SCH ×3 (10:19→21:02)
[2018-10-30] MEDS: VITAMIN B COMPLEX/VIT C CAP PO SCH (10:19)
[2018-10-30] MEDS: METOPROLOL 25 MG TAB PO SCH ×2 (10:20→21:54)
[2018-10-30] MEDS ORDERED: GLUCOSE GEL 15 GRAM TUBE BUCCAL PRN (11:30)
[2018-10-30] MEDS ORDERED: GLUCOSE GEL 15 GRAM TUBE PO PRN ×2 (11:30)
[2018-10-30] MEDS ORDERED: GLUCAGON 1 MG INJ IM PRN (11:30)
[2018-10-30] MEDS ORDERED: DEXTROSE 50% 50 ML SYRINGE IV PRN ×2 (11:30)
[2018-10-30] MEDS: INSULIN ASPART [NOVOLOG] 3 ML PEN SC SCH ×3 (12:39→21:00)
[2018-10-30 14:00] VITALS: BP 129/85; PULSE 73; RESP 18
[2018-10-30] MEDS: morphine 4 MG/ML VIAL IV PRN ×2 (14:39→19:29)
--- NOTE | 2018-10-30 15:45 | HP ---
DATE OF ADMISSION: 10/29/2018 REASON FOR ADMISSION: Generalized weakness. Acute right ankle fracture. HISTORY OF PRESENT ILLNESS: The patient is a 77-year-old male with a history of diabetes m ellitus, left below the knee amputation, BPH, hypertension, former smoker, more than 30 years ago and with history of COPD who was admitted under my care back in August for COPD exacerbation. He also has peripheral neuropathy and does use his prosthesis for his left BKA and able to ambulate. The patient had an unfortunate fall and he complained of severe ankle pain. He presented to [facility], which showed a lateral malleolus fracture. The patient was admitted and was s een by the orthopedic doctor, Dr. Tyler Bryant, who recommended nonsurgical intervention with a Cam walk er brace. The brace was placed. Ultimately, it was decided to admit him for physical therapy as kingsley caicedo in the setting of having already a left BKA, see how he does. Pain control as he required pain me dications and further treatment. The patient was then transferred to the acute rehab for rehabilitat ion. PAST MEDICAL HISTORY: Includes diabetes mellitus, left below the knee amputation, BPH, hypertension, neuropathy, morbidly obese state, now on a right ankle fracture. atrial fibrillation, lymphedema SOCIAL HISTORY: The patient stopped smoking more than 35 years ago, he smoked a pack a day for many, many years, 25 year pack. IV drug abuse, denies. He is . He has 3 kids with multiple gra ndkids. ALLERGIES: NO KNOWN DRUG ALLERGIES. SURGICAL HISTORY: Left below the knee amputation, also multiple surgeries to save his leg prior to t he amputation. FAMILY HISTORY: Mother from old age. She was in the 90s. Father from lung cancer. He wa s a heavy smoker. MEDICATIONS: The patient's current medications were all reviewed which include the followin. Vitamin C 500 mg daily. 2. Vitamin D 2000 daily. 3. Multivitamin 1 daily. 4. Vitamin B complex daily. 5. Zinc sulfate 220 daily. 6. Synthroid 25 mcg daily. 7. Potassium 20 8. Tylenol p.r.n. 9. Colace 100 q.12h. p.r.n. 10. Zofran p.r.n. 11. Ativan 1 mg q.8h. 12. Eliquis 5 mg b.i.d. 13. Colace 100 t.i.d. 14. Neurontin 100 t.i.d. 15. Lopressor 25 b.i.d. 16. Morphine sulfate p.r.n. 17. Requip 0.5 at bedtime. 18. Flomax 0.4 at bedtime. 19. Ambien p.r.n. 20. [place] p.r.n. 21. Senna p.r.n. 22. Milk of Magnesia p.r.n. 23. Lactulose p.r.n. 24. Dulcolax p.r.n. REVIEW OF SYSTEMS: Per HPI. PHYSICAL EXAMINATION: VITAL SIGNS: Temperature 98, pulse 72, respirations 18, blood pressure 120/____, temperature is 97% . GENERAL: No acute distress. HEENT: Atraumatic. pale. CARDIOVASCULAR: S1, S2 regular. LUNGS: Decreased bilaterally. ABDOMEN: Soft, obese. EXTREMITIES: Has a Cam walker brace on the right and left BKA. LABORATORY DATA: Sodium 131, potassium 4.1, chloride 97, bicarbonate 25, BUN is 13, creatinine 1.09, glucose elevated at 203, bilirubin 1.5. White cell count is 14.2, hematocrit 43, platelet count of 187, neutrophils 51%, ____ 31%. Urinalysis is negative. Urine culture and MRSA screening in proces s but so far negative. ASSESSMENT AND PLAN: The patient is a 77-year-old male with history of diabetes mellitus, atrial fibrillation, peripheral vascular disease, left below the knee amputation, hypertension, susta ined a right ankle fracture. 1. The right ankle fracture Cam walk brace in place. The patient does have a left BKA prosthesis to be placed and patient to participate with physical therapy. Pain control will be provided. Further recommendation per rehab physician. 2. Diabetes mellitus. Continue Accu-Cheks with coverage. Follow up hemoglobin A1c level. 3. Subacute hypothyroidism on Synthroid 25 mcg daily. Follow up TSH. 4. Neuropathy. Continue Neurontin. 5. Chronic anxiety on anxiolytics. May benefit from psychiatric evaluation. 6. Paroxysmal atrial fibrillation. Continue Eliquis, beta blockers. Appreciate recent followup gretchen Yo. 7. Benign prostatic hypertrophy. Continue Flomax. Monitor urine frequency. We will follow closely with you during his rehabilitation status post acute fracture. We will follow Overall medically stable, currently. Dictated By: MIKE BUSBY/EVAN Conf#: [id number] DID#: [id number]
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
[2018-10-30 20:34] VITALS: BP 132/60; PULSE 84; RESP 18
[2018-10-30] MEDS: ROPINIROLE 0.25 MG TAB PO SCH (21:02)
[2018-10-30] MEDS: TAMSULOSIN (SR) 0.4 MG CAP PO SCH (21:03)
[2018-10-30] MEDS: SENNA TAB PO SCH (21:04)
[2018-10-31] MEDS: ACCU-CHEK XX SCH (02:00)
[2018-10-31 03:18] VITALS: BP 130/60; PULSE 80; RESP 18
[2018-10-31] MEDS: LEVOTHYROXINE 25 MCG TAB NGT SCH (06:37)
[2018-10-31] MEDS: PANTOPRAZOLE (EC) 40 MG TAB PO SCH (06:37)
[2018-10-31] MEDS: LORAZEPAM 1 MG TAB PO SCH ×3 (06:37→22:13)
[2018-10-31 07:30] VITALS: BP 151/89; PULSE 77; RESP 20
[2018-10-31] MEDS: INSULIN ASPART [NOVOLOG] 3 ML PEN SC SCH ×4 (07:52→20:28)
[2018-10-31] MEDS: morphine 4 MG/ML VIAL IV PRN ×3 (08:29→20:43)
[2018-10-31] MEDS: APIXABAN 5 MG TABLET PO SCH ×2 (08:30→20:29)
[2018-10-31] MEDS: GABAPENTIN 400 MG CAP PO SCH ×3 (08:30→20:29)
[2018-10-31] MEDS: VITAMIN B COMPLEX/VIT C CAP PO SCH (08:30)
[2018-10-31] MEDS: MULTIVITAMINS THERAPEUTIC TAB PO SCH (08:31)
[2018-10-31] MEDS: ZINC SULFATE 220 MG CAP PO SCH (08:31)
[2018-10-31] MEDS: DOCUSATE SODIUM 100 MG CAP PO SCH ×3 (08:31→20:29)
[2018-10-31] MEDS: CHOLECALCIFEROL 2,000 UNIT CAP PO SCH (08:31)
[2018-10-31] MEDS: ASCORBIC ACID 500 MG TAB PO SCH (08:32)
[2018-10-31] MEDS: METOPROLOL 25 MG TAB PO SCH ×2 (08:32→20:30)
[2018-10-31 14:00] VITALS: BP 116/62; PULSE 74; RESP 18
--- NOTE | 2018-10-31 14:01 | PN ---
Date/Time of Note Date/Time of Note DATE: 10/31/18 TIME: 13:58 Subjective Patient in good spirits Objective Vital Signs Date Temp Pulse Resp B/P (MAP) Pulse Ox O2 O2 Flow FiO2 Time Delivery Rate 10/31/18 97.5 77 20 151/89 98 Room Air 07:30 (109) Intake and Output 10/30/18 10/30/18 10/31/18 1515:00 23:00 07:00 IntakeIntake Total 1860 ml 500 ml OutputOutput Total 800 ml 870 ml BalanceBalance -800 ml 990 ml 500 ml Exam min UB self care activities mod assist transfer mod ambulation few steps [id number] Results/Medications Result Diagram: 10/30/18 0548 10/30/18 0548 Results 24 hrs Laboratory Tests Test 10/30/18 17:19 10/30/18 21:56 10/31/18 11:48 Bedside Glucose 220 177 238 H Medications Current Medications Apixaban (Eliquis) 5 mg BID PO Last administered on 10/31/18 08:30; Admin Dose 5 MG; Start 10/29/18 at 21:00 Docusate Sodium (Colace) 100 mg TID PO Last administered on 10/31/18 08:31; Admin Dose 100 MG; Start 10/29/18 at 21:00 Gabapentin (Neurontin) 800 mg TID PO Last administered on 10/31/18 08:30; Admin Dose 800 MG; Start 10/29/18 at 21:00 Lorazepam (Ativan) 1 mg Q8 PO Last administered on 10/31/18 06:37; Admin Dose 1 MG; Start 10/29/18 at 22:00 Metoprolol Tartrate (Lopressor) 25 mg BID PO Last administered on 10/31/18 08:32; Admin Dose 25 MG; Start 10/29/18 at 21:00 Morphine Sulfate (morphine) 4 mg Q4H PRN IV SEVERE PAIN LEVEL 7-10 Last administered on 10/31/18 08:29; Admin Dose 4 MG; Start 10/29/18 at 21:00 Ropinirole HCl (Requip) 0.5 mg HS PO Last administered on 10/30/18at 21:02; Admin Dose 0.5 MG; Start 10/29/18 at 21:00 Tamsulosin HCl (Flomax) 0.4 mg HS PO Last administered on 10/30/18 21:03; Admin Dose 0.4 MG; Start 10/29/18 at 21:00 Zolpidem Tartrate (Ambien) 5 mg HS PRN PO INSOMNIA; Start 10/29/18 at 21:00 Acetaminophen/ Hydrocodone Bitart ([place] (5/325)) 1 tab Q6H PRN PO MODERATE PAIN LEVEL 4-6 Last administered on 10/30/18at 21:03; Admin Dose 1 TAB; Start 10/29/18 at 21:00 Senna (Senokot) 1 tab HS PO Last administered on 10/30/18 21:04; Admin Dose 1 TAB; Start 10/29/18 at 21:00 Magnesium Hydroxide (Milk Of Mag) 30 ml BID PRN PO CONSTIPATION; Start 10/29/18 at 21:00 Lactulose (Enulose) 20 gm DAILY PRN PO CONSTIPATION; Start 10/29/18 at 21:00 Bisacodyl (Dulcolax Supp) 10 mg DAILY PRN [place] CONSTIPATION; Start 10/29/18 at 21:00 Acetaminophen (Tylenol Tab) 650 mg Q6H PRN PO MILD PAIN(1-3)OR ELEVATED TEMP; Start 10/30/18 at 03:00 Ascorbic Acid (Vitamin C) 500 mg DAILY PO Last administered on 10/31/18at 08:32; Admin Dose 500 MG; Start 10/30/18 at 09:00 Cholecalciferol (Vitamin D) 2,000 unit DAILY PO Last administered on 10/31/18 08:31; Admin Dose 2,000 UNIT; Start 10/30/18 at 09:00 Docusate Sodium (Colace) 100 mg Q12H PRN PO CONSTIPATION; Start 10/30/18 at 03:00 Levothyroxine Sodium (Synthroid) 25 mcg DAILY@06 NGT Last administered on 10/31/18at 06:37; Admin Dose 25 MCG; Start 10/30/18 at 06:00 Multivitamins Therapeutic (Theragran) 1 tab DAILY PO Last administered on 10/31/18 08:31; Admin Dose 1 TAB; Start 10/30/18 at 09:00 Ondansetron HCl (Zofran Inj) 4 mg Q6H PRN IV NAUSEA AND/OR VOMITING; Start 10/30/18 at 03:00 Pantoprazole (Protonix Tab) 40 mg DAILY@06 PO Last administered on 10/31/18at 06:37; Admin Dose 40 MG; Start 10/30/18 at 06:00 Vitamin B Complex/ Vitamin C (Berocca) 1 cap DAILY PO Last administered on 10/31/18at 08:30; Admin Dose 1 CAP; Start 10/30/18 at 09:00 Zinc Sulfate (Zinc Sulfate) 220 mg DAILY PO Last administered on 10/31/18at 08:31; Admin Dose 220 MG; Start 10/30/18 at 09:00 Diagnostic Test (Pha) (Accu-Chek) 1 ea 02 XX ; Start 10/31/18 at 02:00 Insulin Aspart (Novolog Insulin Pen) NOVOLOG *MODERATE* ALGORITHM WITH MEALS BEDTIME SC Last administered on 10/31/18at 11:53; Admin Dose 6 UNIT; Start 10/30/18 at 12:00 Miscellaneous Information 1 ea NOTE XX ; Start 10/30/18 at 11:30 Glucose (Glutose) 15 gm Q15M PRN PO DECREASED GLUCOSE; Start 10/30/18 at 11:30 Glucose (Glutose) 22.5 gm Q15M PRN PO DECREASED GLUCOSE; Start 10/30/18 at 11:30 Dextrose (D50w Syringe) 25 ml Q15M PRN IV DECREASED GLUCOSE; Start 10/30/18 at 11:30 Dextrose (D50w Syringe) 50 ml Q15M PRN IV DECREASED GLUCOSE; Start 10/30/18 at 11:30 Glucagon (Glucagen) 1 mg Q15M PRN IM DECREASED GLUCOSE; Start 10/30/18 at 11:30 Glucose (Glutose) 15 gm Q15M PRN BUCCAL DECREASED GLUCOSE; Start 10/30/18 at 11:30 Assessment/Plan Additional Assessment/Plan rehab- Other orthopedic injury with right medial and lateral malleolar fracture with Cam boot placement; History of left below the knee amputation. Tolerating rehab Diabetes mellitus type 2. Hypothyroidism. Neuropathy. Anxiety-Dr Joseph evaluation Paroxysmal atrial fibrillation. Benign prostate hypertrophy. Peripheral vascular disease. Chronic obstructive pulmonary disease. RYAN SANTILLAN MD Oct 31, 2018 14:01
--- NOTE | 2018-10-31 15:05 | PSY ---
Date/Time of Note Date/Time of Note DATE: 10/31/18 TIME: 15:02 Psychiatric Subjective Eval Subjective Evaluation History of present illness The patient is a 77-year-old male with a history of diabetes mellitus, left below the knee amputation, BPH, hypertension, and COPD . Eooh-vw-fqnx evaluation, patient is alert and oriented, he states he had history of depression about 35 years ago when he had a divorce. Patient states he is fine and is adjusting with his prosthesis, he also states he has reason to live because of good family supports from his daughter and grandchildren. Patient contracted for safety and denies feeling AH, and hopelessness and helplessness. Past psychiatric history History of depression Hospitalization: other Medical history Problems Medical Problems: (1) Arthralgia of lumbar spine Status: Acute (2) Back pain Status: Acute (3) Back pain Status: Acute (4) Back pain Status: Acute (5) Blunt injury of chest Status: Acute (6) Cellulitis Status: Acute (7) Chronic a-fib Status: Acute (8) Closed bimalleolar fracture of right ankle Status: Acute (9) Closed bimalleolar fracture of right ankle Status: Acute (10) Closed head injury Status: Acute (11) COPD (chronic obstructive pulmonary disease) Status: Acute (12) Diabetes mellitus type 2 in obese Status: Acute (13) Edema of leg Status: Acute (14) Fall Status: Acute (15) Fall with no significant injury Status: Acute (16) Fall with significant injury Status: Acute (17) Hip pain Status: Acute (18) Injury of groin Status: Acute (19) Injury of toe Status: Acute (20) Laceration Status: Acute (21) Neuropathic pain Status: Acute (22) Opioid dependence Status: Acute (23) Rib injury Status: Acute (24) Shingles Status: Acute (25) Shingles Status: Acute (26) Skin tear of right upper extremity Status: Acute (27) Wound cellulitis Status: Acute (28) Wound cellulitis Status: Acute Allergies: Coded Allergies: No Known Allergy (Unverified , 10/26/18) Substance Abuse Substance abuse history: No Prior substance abuse treatmen: No Social History Marital status: other DPA/Conservatorship: No Psychiatric Objective Eval Review of Systems: Review of Systems: Not Applicable Physical Examination: Appetite: Decreased Energy: Decreased Interest: Decreased Mental Status Examination: Eye Contact: Fair Psychomotor Activity: Slow Behavior: Cooperative Speech: Soft AFFECT: Flat Mood: Depressed Though Process: Linear Thought Content: Normal Suicidal: No Homicidal: No On 72 hour hold: No Orientation: x4 Insight: Moderate Judgement: Moderate Attention Span: Distractible Laboratory Results Laboratory Tests Test 10/29/18 22:00 10/30/18 05:48 10/30/18 12:32 10/30/18 12:35 Urine Color YELLOW Urine Clarity CLEAR Urine pH 5.0 Urine Specific 1.005 [place] Urine Ketones NEGATIVE mg/dL Urine Nitrite NEGATIVE mg/dL Urine Bilirubin NEGATIVE mg/dL Urine NEGATIVE mg/dL Urobilinogen Urine Leukocyte NEGATIVE Goldy/ul Esterase Urine Hemoglobin NEGATIVE mg/dL Urine Glucose NEGATIVE mg/dL Urine Total NEGATIVE mg/dl Protein White Blood Count 7.7 10^3/ul Red Blood Count 4.64 10^6/ul Hemoglobin 14.2 g/dl Hematocrit 43.0 % Mean Corpuscular 92.7 fl Volume Mean Corpuscular 30.6 pg Hemoglobin Mean Corpuscular 33.0 g/dl Hemoglobin Concen t Red Cell 14.4 % Distribution Width Platelet Count 187 10^3/UL Mean Platelet 11.0 fl Volume Immature 0.500 % Granulocytes % Neutrophils % 51.2 % Lymphocytes % 31.0 % Monocytes % 13.5 % Eosinophils % 3.5 % Basophils % 0.3 % Nucleated Red 0.0 /100WBC Blood Cells % Immature 0.040 10^3/ul Granulocytes # Neutrophils # 3.9 10^3/ul Lymphocytes # 2.4 10^3/ul Monocytes # 1.0 10^3/ul Eosinophils # 0.3 10^3/ul Basophils # 0.0 10^3/ul Nucleated Red 0.0 10^3/ul Blood Cells # Sodium Level 131 mmol/L Potassium Level 4.1 mmol/L Chloride Level 97 mmol/L Carbon Dioxide 25 mmol/L Level Anion Gap 9 Blood Urea 13 mg/dl Nitrogen Creatinine 1.09 mg/dl Est Glomerular mL/min Filtrat Rate mL/min Glucose Level 203 mg/dl Hemoglobin A1c 6.7 % Calcium Level 8.8 mg/dl Total Bilirubin 1.5 mg/dl Direct Bilirubin 0.00 mg/dl Indirect 1.5 mg/dl Bilirubin Aspartate Amino 31 IU/L Transf (AST/SGOT) Alanine 28 IU/L Aminotransferase (ALT/SGPT) Alkaline 73 IU/L Phosphatase Total Protein 7.0 g/dl Albumin 3.7 g/dl Globulin 3.30 g/dl Albumin/Globulin 1.12 Ratio Bedside Glucose 262 mg/dL 218 mg/dL Test 10/30/18 17:19 10/30/18 21:56 10/31/18 11:48 Bedside Glucose 220 mg/dL 177 mg/dL 238 mg/dL Assessment and Plan Assessment/Diagnosis Diagnosis 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
[2018-10-31 19:48] VITALS: BP 135/88; PULSE 86; RESP 18
[2018-10-31 19:51] VITALS: PULSE 75; RESP 18
[2018-10-31] MEDS: TAMSULOSIN (SR) 0.4 MG CAP PO SCH (20:28)
[2018-10-31] MEDS: SENNA TAB PO SCH (20:29)
[2018-10-31] MEDS: ROPINIROLE 0.25 MG TAB PO SCH (20:29)
--- NOTE | 2018-10-31 23:12 | PN ---
DATE: 10/31/2018 SUBJECTIVE: The patient was seen, appears comfortable. Seen by psychiatry today. PHYSICAL EXAMINATION: VITAL SIGNS: Temperature 98.3, pulse 74, respirations 18, blood pressure 116/62, saturation 94%. GENERAL: No acute distress. HEENT: Normocephalic, atraumatic, pale. CARDIOVASCULAR: S1 and S2. LUNGS: Decreased bilaterally. ABDOMEN: Soft. EXTREMITIES: Left BKA. Right lateral foot in a CAM walker brace. LABORATORY DATA: Done yesterday shows a white count 7.7, hemoglobin 14.2, hematocrit 43, platelets 1 87, neutrophils 51%, lymphocytes 31%. Chemistry: Sodium 131, potassium 4.1, chloride 107, bicarbona te 25, BUN 13, creatinine of 1.09, glucose of 203. Hemoglobin A1c of 6.7, AST 31, ALT 28, alkaline p hosphatase 73. Urinalysis negative. Urine culture MRSA screening negative. ASSESSMENT AND PLAN: This is a 77-year-old male with history of diabetes mellitus, atrial fibrillation, peripheral vascular disease, left below the knee amputation, hypertension who sustained a right ankle fracture. 1. Right ankle fracture. Will need a CAM walker brace at all times. Physical therapy, occupational therapy to follow as patient has a left BKA prosthesis. 2. Diabetes mellitus. Continue Accu-Cheks before meals and at bedtime with insulin coverage. Araceli martinez's hemoglobin A1c of 6.7, overall controlled. 3. Hypothyroidism. Continue Synthroid 25 mcg daily. 4. Stool softeners will be provided. 5. History of atrial fibrillation on Eliquis 5 mg b.i.d., anticoagulated, followed by Dr. Yo has been following. 6. Anxiety disorder. Follow up with psychiatry recommendation. 7. Neuropathy. Continue Neurontin. 8. Benign prostatic hypertrophy. Continue Flomax. Urinalysis negative. 9. We requested high school social studies tutor consult due to patient's anxiety and wish to go back to the assisted l iving facility. We will follow. Dictated By: MIKE BUSBY/EVAN Conf#: [id number] DID#: [id number]
[2018-11-01 02:00] VITALS: BP 128/78; PULSE 79; RESP 18
[2018-11-01] MEDS: ZOLPIDEM 5 MG TAB PO PRN (02:25)
[2018-11-01] MEDS: ACCU-CHEK XX SCH (02:28)
[2018-11-01] MEDS: morphine 4 MG/ML VIAL IV PRN ×3 (04:11→22:24)
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
[2018-11-01] MEDS: PANTOPRAZOLE (EC) 40 MG TAB PO SCH (06:34)
[2018-11-01] MEDS: LEVOTHYROXINE 25 MCG TAB NGT SCH (06:34)
[2018-11-01] MEDS: LORAZEPAM 1 MG TAB PO SCH ×3 (06:34→21:51)
[2018-11-01 07:28] VITALS: BP 121/83; PULSE 74; RESP 18
[2018-11-01] MEDS: INSULIN ASPART [NOVOLOG] 3 ML PEN SC SCH ×4 (07:50→21:44)
[2018-11-01] MEDS: APIXABAN 5 MG TABLET PO SCH ×2 (09:29→21:45)
[2018-11-01] MEDS: DOCUSATE SODIUM 100 MG CAP PO SCH ×3 (09:29→21:45)
[2018-11-01] MEDS: VITAMIN B COMPLEX/VIT C CAP PO SCH (09:29)
[2018-11-01] MEDS: METOPROLOL 25 MG TAB PO SCH ×2 (09:30→21:45)
[2018-11-01] MEDS: MULTIVITAMINS THERAPEUTIC TAB PO SCH (09:30)
[2018-11-01] MEDS: ASCORBIC ACID 500 MG TAB PO SCH (09:30)
[2018-11-01] MEDS: GABAPENTIN 400 MG CAP PO SCH ×3 (09:30→21:45)
[2018-11-01] MEDS: ZINC SULFATE 220 MG CAP PO SCH (09:30)
[2018-11-01] MEDS: CHOLECALCIFEROL 2,000 UNIT CAP PO SCH (09:30)
--- NOTE | 2018-11-01 12:37 | PN ---
Date/Time of Note Date/Time of Note DATE: 11/01/18 TIME: 12:36 Objective Vital Signs Date Temp Pulse Resp B/P (MAP) Pulse Ox O2 O2 Flow FiO2 Time Delivery Rate 11/01/18 98.2 74 18 121/83 97 Room Air 07:28 (96) Intake and Output 10/31/18 10/31/18 11/01/18 1414:59 22:59 06:59 IntakeIntake Total 1750 ml 1450 ml OutputOutput Total 1010 ml 1300 ml BalanceBalance 740 ml 150 ml Exam INTERDISCIPLINARY TEAM CONFERENCE Attended by PT, OT, ST, Social Work, Rehabilitation Nursing, Paint Mixer and Coin Machine Collector SupervisorMotor Vehicles Inspector Exam: Pulm- cta Abd-soft BOWEL- Cont BLADDER-Cont SKIN- improving OT- DRESSING-min/mod BATHING-mod TOILETING-mod PT- BED MOBILITY-min TRANSFERS-min AMBULATION-min 150 feet A/P- Interdisciplinary team conference held today. Please see interdisciplinary sheet. Working toward d.c. on 11/05 with post discharge follow up of physical therapy, occupational therapy. Results/Medications Result Diagram: 10/30/18 0548 10/30/18 0548 Results 24 hrs Laboratory Tests Test 10/31/18 17:29 10/31/18 20:26 11/01/18 02:27 11/01/18 07:49 Bedside Glucose 200 198 201 240 H Test 11/01/18 11:48 Bedside Glucose 208 Medications Current Medications Apixaban (Eliquis) 5 mg BID PO Last administered on 11/01/18at 09:29; Admin Dose 5 MG; Start 10/29/18 at 21:00 Docusate Sodium (Colace) 100 mg TID PO Last administered on 11/01/18at 12:14; Admin Dose 100 MG; Start 10/29/18 at 21:00 Gabapentin (Neurontin) 800 mg TID PO Last administered on 11/01/18at 12:14; Admin Dose 800 MG; Start 10/29/18 at 21:00 Lorazepam (Ativan) 1 mg Q8 PO Last administered on 11/01/18at 06:34; Admin Dose 1 MG; Start 10/29/18 at 22:00 Metoprolol Tartrate (Lopressor) 25 mg BID PO Last administered on 11/01/18at 09:30; Admin Dose 25 MG; Start 10/29/18 at 21:00 Morphine Sulfate (morphine) 4 mg Q4H PRN IV SEVERE PAIN LEVEL 7-10 Last administered on 11/01/18 09:34; Admin Dose 4 MG; Start 10/29/18 at 21:00 Ropinirole HCl (Requip) 0.5 mg HS PO Last administered on 10/31/18 20:29; Admin Dose 0.5 MG; Start 10/29/18 at 21:00 Tamsulosin HCl (Flomax) 0.4 mg HS PO Last administered on 10/31/18 20:28; Admin Dose 0.4 MG; Start 10/29/18 at 21:00 Zolpidem Tartrate (Ambien) 5 mg HS PRN PO INSOMNIA Last administered on 11/01/18 02:25; Admin Dose 5 MG; Start 10/29/18 at 21:00 Acetaminophen/ Hydrocodone Bitart ([place] (5/325)) 1 tab Q6H PRN PO MODERATE PAIN LEVEL 4-6 Last administered on 10/30/18 21:03; Admin Dose 1 TAB; Start 10/29/18 at 21:00 Senna (Senokot) 1 tab HS PO Last administered on 10/31/18 20:29; Admin Dose 1 TAB; Start 10/29/18 at 21:00 Magnesium Hydroxide (Milk Of Mag) 30 ml BID PRN PO CONSTIPATION; Start 10/29/18 at 21:00 Lactulose (Enulose) 20 gm DAILY PRN PO CONSTIPATION; Start 10/29/18 at 21:00 Bisacodyl (Dulcolax Supp) 10 mg DAILY PRN MI CONSTIPATION; Start 10/29/18 at 21:00 Acetaminophen (Tylenol Tab) 650 mg Q6H PRN PO MILD PAIN(1-3)OR ELEVATED TEMP; Start 10/30/18 at 03:00 Ascorbic Acid (Vitamin C) 500 mg DAILY PO Last administered on 11/01/18 09:30; Admin Dose 500 MG; Start 10/30/18 at 09:00 Cholecalciferol (Vitamin D) 2,000 unit DAILY PO Last administered on 11/01/18 09:30; Admin Dose 2,000 UNIT; Start 10/30/18 at 09:00 Docusate Sodium (Colace) 100 mg Q12H PRN PO CONSTIPATION; Start 10/30/18 at 03:00 Levothyroxine Sodium (Synthroid) 25 mcg DAILY@06 NGT Last administered on 11/01/18at 06:34; Admin Dose 25 MCG; Start 10/30/18 at 06:00 Multivitamins Therapeutic (Theragran) 1 tab DAILY PO Last administered on 11/01/18at 09:30; Admin Dose 1 TAB; Start 10/30/18 at 09:00 Ondansetron HCl (Zofran Inj) 4 mg Q6H PRN IV NAUSEA AND/OR VOMITING; Start 10/30/18 at 03:00 Pantoprazole (Protonix Tab) 40 mg DAILY@06 PO Last administered on 11/01/18at 06:34; Admin Dose 40 MG; Start 10/30/18 at 06:00 Vitamin B Complex/ Vitamin C (Berocca) 1 cap DAILY PO Last administered on 11/01/18at 09:29; Admin Dose 1 CAP; Start 10/30/18 at 09:00 Zinc Sulfate (Zinc Sulfate) 220 mg DAILY PO Last administered on 11/01/18at 09:30; Admin Dose 220 MG; Start 10/30/18 at 09:00 Diagnostic Test (Pha) (Accu-Chek) 1 ea 02 XX Last administered on 11/01/18at 02:28; Admin Dose 1 EA; Start 10/31/18 at 02:00 Insulin Aspart (Novolog Insulin Pen) NOVOLOG *MODERATE* ALGORITHM WITH MEALS BEDTIME SC Last administered on 11/01/18at 11:50; Admin Dose 4 UNIT; Start 10/30/18 at 12:00 Miscellaneous Information 1 ea NOTE XX ; Start 10/30/18 at 11:30 Glucose (Glutose) 15 gm Q15M PRN PO DECREASED GLUCOSE; Start 10/30/18 at 11:30 Glucose (Glutose) 22.5 gm Q15M PRN PO DECREASED GLUCOSE; Start 10/30/18 at 11:30 Dextrose (D50w Syringe) 25 ml Q15M PRN IV DECREASED GLUCOSE; Start 10/30/18 at 11:30 Dextrose (D50w Syringe) 50 ml Q15M PRN IV DECREASED GLUCOSE; Start 10/30/18 at 11:30 Glucagon (Glucagen) 1 mg Q15M PRN IM DECREASED GLUCOSE; Start 10/30/18 at 11:30 Glucose (Glutose) 15 gm Q15M PRN BUCCAL DECREASED GLUCOSE; Start 10/30/18 at 11:30 RYAN SANTILLAN MD Nov 01, 2018 12:37
[2018-11-01] MEDS ORDERED: PENDING SANTYL ORDER FOR WOUND CARE XX PRN (13:30)
[2018-11-01 14:25] VITALS: BP 132/78; RESP 18
[2018-11-01 19:45] VITALS: BP 140/64; PULSE 90; RESP 20
[2018-11-01] MEDS ORDERED: INSULIN GLARGINE [LANTus] (100 UNITS/ML) SYG SC SCH (20:00)
[2018-11-01] MEDS: ROPINIROLE 0.25 MG TAB PO SCH (21:44)
[2018-11-01] MEDS: TAMSULOSIN (SR) 0.4 MG CAP PO SCH (21:45)
[2018-11-01] MEDS: SENNA TAB PO SCH (21:45)
[2018-11-02] MEDS: ZOLPIDEM 5 MG TAB PO PRN (01:49)
[2018-11-02] MEDS: ACCU-CHEK XX SCH (02:00)
[2018-11-02 02:27] VITALS: BP 127/72; PULSE 83; RESP 19
--- NOTE | 2018-11-02 03:46 | PN ---
DATE: 11/01/2018 SUBJECTIVE: The patient seen, noted hyperglycemia with a glucose in the 200s. Will start the patien t on basal insulin and continue sliding scale and we will adjust his meds. PHYSICAL EXAMINATION: VITAL SIGNS: Temperature 97.7, pulse 74, respirations 18, blood pressure 132/78, saturation 96%. GENERAL: Currently, the patient is resting comfortably, sleeping. Overall, obese, pale. CARDIOVASCULAR: S1, S2, regular rate. LUNGS: Clear. ABDOMEN: Soft, nontender. EXTREMITIES: Left BKA and right brace Cam is in place. LABORATORY DATA: White count is 7.7, hemoglobin 14.2, hematocrit 43, platelet count of 187 on admiss ion. Chemistry was reviewed. Last glucose levels were reviewed. They are 296 and 208. Urine cultu re, MRSA screening all negative and urinalysis was essentially negative. MEDICATIONS: 1. Accu-Chek q.a.c. and at bedtime. 2. Hypoglycemia protocol. 3. Vitamin C 500 mg daily. 4. Vitamin D 2000 daily. 5. Multivitamin 1 tab daily. 6. Vitamin B complex daily. 7. Zinc sulfate 220 daily. 8. Synthroid 25 mcg daily. 9. Protonix 40 mg daily. 10. Tylenol. 11. Colace. 12. Zofran. 13. Ativan as directed. 14. Eliquis 5 mg b.i.d. 15. Colace 100 t.i.d. 16. Neurontin 800 t.i.d. 17. Lopressor 25 b.i.d. 18. Morphine p.r.n. 19. Requip 0.5 at bedtime. 20. Flomax 0.4 at bedtime. 21. Ambien. 22. Paragon. 23. Senna. 24. Milk of Magnesia. 25. Lactulose. 26. Dulcolax as directed. ASSESSMENT AND PLAN: This is a 77-year-old male with history of diabetes mellitus, atrial fibrillation, peripheral vascular disease, left below the knee amputation, hypertension, sustained ri ght ankle fracture. 1. Right ankle fraction. Continue CAM walker brace at all times. Physical therapy, [facility]. 2. Diabetes mellitus. Start the patient on basal insulin on Lantus 10 units at night. May consider adding oral meds. 3. Hypothyroidism. Continue Synthroid 25 mcg daily. Follow up TSH. 4. Continue stool softener. 5. History of atrial fibrillation on Eliquis. Dr. Yo has been following. 6. Anxiety disorder. Continue all psych meds. Psychiatry today to follow. 7. Neuropathy, on Neurontin. 8. Benign prostatic hypertrophy, on Flomax. 9. Disposition later on per social welfare administrator. Clinically stable. Case discussed with nursing staff. Dictated By: MIKE BUSBY/EVAN Conf#: [id number] DID#: [id number] CC: RYAN SANTILLAN MD;*EndCC*
[2018-11-02] MEDS: LORAZEPAM 1 MG TAB PO SCH ×3 (06:14→21:45)
[2018-11-02] MEDS: LEVOTHYROXINE 25 MCG TAB NGT SCH (06:14)
[2018-11-02] MEDS: PANTOPRAZOLE (EC) 40 MG TAB PO SCH (06:14)
[2018-11-02 07:30] VITALS: BP 141/80; PULSE 79; RESP 20
[2018-11-02] MEDS: INSULIN ASPART [NOVOLOG] 3 ML PEN SC SCH ×5 (08:54→20:28)
[2018-11-02] MEDS: CHOLECALCIFEROL 2,000 UNIT CAP PO SCH (09:42)
[2018-11-02] MEDS: ASCORBIC ACID 500 MG TAB PO SCH (09:42)
[2018-11-02] MEDS: VITAMIN B COMPLEX/VIT C CAP PO SCH (09:42)
[2018-11-02] MEDS: MULTIVITAMINS THERAPEUTIC TAB PO SCH (09:42)
[2018-11-02] MEDS: ZINC SULFATE 220 MG CAP PO SCH (09:42)
[2018-11-02] MEDS: GABAPENTIN 400 MG CAP PO SCH ×3 (09:43→20:19)
[2018-11-02] MEDS: APIXABAN 5 MG TABLET PO SCH ×2 (09:43→20:20)
[2018-11-02] MEDS: DOCUSATE SODIUM 100 MG CAP PO SCH ×3 (09:43→20:20)
[2018-11-02] MEDS: METOPROLOL 25 MG TAB PO SCH ×2 (09:43→20:20)
[2018-11-02 14:00] VITALS: BP 156/81; PULSE 78; RESP 20
--- NOTE | 2018-11-02 15:00 | PN ---
Date/Time of Note Date/Time of Note DATE: 11/02/18 TIME: 14:59 Objective Vital Signs Date Temp Pulse Resp B/P (MAP) Pulse Ox O2 O2 Flow FiO2 Time Delivery Rate 11/02/18 98.3 79 20 141/80 97 Room Air 07:30 (100) Intake and Output 11/01/18 11/01/18 11/02/18 1515:00 23:00 07:00 IntakeIntake Total 200 ml OutputOutput Total 250 ml BalanceBalance 200 ml -250 ml Exam pulm-cta sba transfer min ambulation Results/Medications Result Diagram: 10/30/1848 10/30/1848 Results 24 hrs Laboratory Tests Test 11/01/18 17:31 11/01/18 21:37 11/02/18 02:08 11/02/18 08:21 Bedside Glucose 296 H 182 218 210 Test 11/02/18 11:48 Bedside Glucose 247 H Medications Current Medications Apixaban (Eliquis) 5 mg BID PO Last administered on 11/02/18 09:43; Admin Dose 5 MG; Start 10/29/18 at 21:00 Docusate Sodium (Colace) 100 mg TID PO Last administered on 11/02/18 13:23; Admin Dose 100 MG; Start 10/29/18 at 21:00 Gabapentin (Neurontin) 800 mg TID PO Last administered on 11/02/18 13:24; Admin Dose 800 MG; Start 10/29/18 at 21:00 Lorazepam (Ativan) 1 mg Q8 PO Last administered on 11/02/18 13:23; Admin Dose 1 MG; Start 10/29/18 at 22:00 Metoprolol Tartrate (Lopressor) 25 mg BID PO Last administered on 11/02/18 09:43; Admin Dose 25 MG; Start 10/29/18 at 21:00 Morphine Sulfate (morphine) 4 mg Q4H PRN IV SEVERE PAIN LEVEL 7-10 Last administered on 11/01/18 22:24; Admin Dose 4 MG; Start 10/29/18 at 21:00 Ropinirole HCl (Requip) 0.5 mg HS PO Last administered on 11/01/18 21:44; Admin Dose 0.5 MG; Start 10/29/18 at 21:00 Tamsulosin HCl (Flomax) 0.4 mg HS PO Last administered on 11/01/18 21:45; Admin Dose 0.4 MG; Start 10/29/18 at 21:00 Zolpidem Tartrate (Ambien) 5 mg HS PRN PO INSOMNIA Last administered on 11/02/18 01:49; Admin Dose 5 MG; Start 10/29/18 at 21:00 Acetaminophen/ Hydrocodone Bitart ([place] (5/325)) 1 tab Q6H PRN PO MODERATE PAIN LEVEL 4-6 Last administered on 10/30/18 21:03; Admin Dose 1 TAB; Start 10/29/18 at 21:00 Senna (Senokot) 1 tab HS PO Last administered on 11/01/18 21:45; Admin Dose 1 TAB; Start 10/29/18 at 21:00 Magnesium Hydroxide (Milk Of Mag) 30 ml BID PRN PO CONSTIPATION; Start 10/29/18 at 21:00 Lactulose (Enulose) 20 gm DAILY PRN PO CONSTIPATION Last administered on 11/02/18 13:23; Admin Dose 20 GM; Start 10/29/18 at 21:00 Bisacodyl (Dulcolax Supp) 10 mg DAILY PRN MI CONSTIPATION; Start 10/29/18 at 21:00 Acetaminophen (Tylenol Tab) 650 mg Q6H PRN PO MILD PAIN(1-3)OR ELEVATED TEMP; Start 10/30/18 at 03:00 Ascorbic Acid (Vitamin C) 500 mg DAILY PO Last administered on 11/02/18 09:42; Admin Dose 500 MG; Start 10/30/18 at 09:00 Cholecalciferol (Vitamin D) 2,000 unit DAILY PO Last administered on 11/02/18 09:42; Admin Dose 2,000 UNIT; Start 10/30/18 at 09:00 Docusate Sodium (Colace) 100 mg Q12H PRN PO CONSTIPATION; Start 10/30/18 at 03:00 Levothyroxine Sodium (Synthroid) 25 mcg DAILY@06 NGT Last administered on 11/02/18 06:14; Admin Dose 25 MCG; Start 10/30/18 at 06:00 Multivitamins Therapeutic (Theragran) 1 tab DAILY PO Last administered on 11/02/18 09:42; Admin Dose 1 TAB; Start 10/30/18 at 09:00 Ondansetron HCl (Zofran Inj) 4 mg Q6H PRN IV NAUSEA AND/OR VOMITING; Start 10/30/18 at 03:00 Pantoprazole (Protonix Tab) 40 mg DAILY@06 PO Last administered on 11/02/18at 06:14; Admin Dose 40 MG; Start 10/30/18 at 06:00 Vitamin B Complex/ Vitamin C (Berocca) 1 cap DAILY PO Last administered on 11/02/18at 09:42; Admin Dose 1 CAP; Start 10/30/18 at 09:00 Zinc Sulfate (Zinc Sulfate) 220 mg DAILY PO Last administered on 11/02/18at 09:42; Admin Dose 220 MG; Start 10/30/18 at 09:00 Diagnostic Test (Pha) (Accu-Chek) 1 ea 02 XX Last administered on 11/01/18at 02:28; Admin Dose 1 EA; Start 10/31/18 at 02:00 Insulin Aspart (Novolog Insulin Pen) NOVOLOG *MODERATE* ALGORITHM WITH MEALS BEDTIME SC Last administered on 11/02/18at 11:51; Admin Dose 6 UNIT; Start 10/30/18 at 12:00 Miscellaneous Information 1 ea NOTE XX ; Start 10/30/18 at 11:30 Glucose (Glutose) 15 gm Q15M PRN PO DECREASED GLUCOSE; Start 10/30/18 at 11:30 Glucose (Glutose) 22.5 gm Q15M PRN PO DECREASED GLUCOSE; Start 10/30/18 at 11:30 Dextrose (D50w Syringe) 25 ml Q15M PRN IV DECREASED GLUCOSE; Start 10/30/18 at 11:30 Dextrose (D50w Syringe) 50 ml Q15M PRN IV DECREASED GLUCOSE; Start 10/30/18 at 11:30 Glucagon (Glucagen) 1 mg Q15M PRN IM DECREASED GLUCOSE; Start 10/30/18 at 11:30 Glucose (Glutose) 15 gm Q15M PRN BUCCAL DECREASED GLUCOSE; Start 10/30/18 at 11:30 [facility]isc[facility] This patient dong... PRN PRN XX WOUND CARE; Start 11/01/18 at 13:30 Insulin Glargine (Lantus) 10 units DAILY@2000 SC Last administered on 11/01/18at 21:41; Admin Dose 10 UNITS; Start 11/01/18 at 20:00 Assessment/Plan Additional Assessment/Plan rehab- Other orthopedic injury with right medial and lateral malleolar fracture with Cam boot placement; History of left below the knee amputation. Tolerating rehab, working towards back to assisted living facility Monday Diabetes mellitus type 2. Hypothyroidism. Neuropathy. Anxiety-Dr Joseph evaluation Paroxysmal atrial fibrillation. Benign prostate hypertrophy. Peripheral vascular disease. Chronic obstructive pulmonary disease. RYAN SANTILLAN MD Nov 02, 2018 15:00
--- NOTE | 2018-11-02 19:10 | PN ---
DATE: 11/02/2018 SUBJECTIVE: The patient is seen, appears to be comfortable. He does have hypoglycemia despite initi ating basal insulin. PHYSICAL EXAMINATION: VITAL SIGNS: Temperature 98.3, pulse 79, respirations 20, blood pressure 141/80, saturation 97%. GENERAL: In no acute distress, obese, pale. CARDIOVASCULAR: S1 and S2. LUNGS: Clear bilaterally. ABDOMEN: Soft, nontender. EXTREMITIES: Left BKA and right walker CAM brace. LABORATORY DATA: No new labs today. Last glucose level is 247, 210 and 218. MEDICATIONS: 1. Lantus 10 units. We will increase it to 16. 2. Accu-Cheks as directed ____ same protocol. 3. Vitamin C 500 mg daily. 4. Vitamin D 2000 daily. 5. Multivitamin 1 tablet daily. 6. Vitamin B complex daily. 7. Zinc sulfate 220 daily. 8. Synthroid 25 mcg daily. 9. Protonix 40 mg daily. 10. Eliquis 5 mg b.i.d. 11. Ativan 1 mg q.8. 12. Colace 100 t.i.d. 13. Neurontin 800 t.i.d. 14. Lopressor 25 b.i.d. 15. Requip 0.5 at bedtime. 16. Flomax 0.5 mg at bedtime. 17. Ambien p.r.n. 18. [place] p.r.n. 19. Senna 1 tab at bedtime. 20. Lactulose. 21. Dulcolax as directed. ASSESSMENT AND PLAN: This is a 78-year-old male with history of diabetes mellitus, atrial fibrillation, peripheral vascular disease, left itxzb-icb-cred amputation, hypertension, sustained ri ght ankle fracture. 1. Right ankle fracture. Continue CAM walker brace at all times. Physical therapy and occupational therapy as directed. 2. Diabetes mellitus. Increase Lantus to 16 units. May start the patient also on NovoLog prior to meals routinely. 3. Hypothyroidism, on Synthroid. Follow up TSH. 4. Continue stool softeners. 5. Atrial fibrillation, rate controlled on Eliquis. 6. Anxiety disorder, on Ativan around the clock. Psychiatry is following. 7. Neuropathy, on Neurontin. 8. Benign prostatic hypertrophy, on Flomax. 9. Follow up labs tomorrow. Monitor glucose levels. We will follow. Dictated By: MIKE BUSBY/EVAN Conf#: [id number] DID#: [id number] CC: RYAN SANTILLAN MD;*EndCC*
[2018-11-02 19:43] VITALS: BP 145/84; PULSE 81; RESP 18
[2018-11-02] MEDS ORDERED: INSULIN GLARGINE [LANTus] (100 UNITS/ML) SYG SC SCH (20:00)
[2018-11-02] MEDS: SENNA TAB PO SCH (20:20)
[2018-11-02] MEDS: ROPINIROLE 0.25 MG TAB PO SCH (20:20)
[2018-11-02] MEDS: TAMSULOSIN (SR) 0.4 MG CAP PO SCH (20:20)
[2018-11-02] MEDS: morphine 4 MG/ML VIAL IV PRN (21:43)
[2018-11-03 02:00] VITALS: BP 135/78; PULSE 77; RESP 18
[2018-11-03] MEDS: ACCU-CHEK XX SCH (02:00)
[2018-11-03] MEDS: ZOLPIDEM 5 MG TAB PO PRN (02:46)
[2018-11-03] MEDS: morphine 4 MG/ML VIAL IV PRN ×3 (05:30→20:54)
[2018-11-03] MEDS: PANTOPRAZOLE (EC) 40 MG TAB PO SCH (05:34)
[2018-11-03] MEDS: LEVOTHYROXINE 25 MCG TAB NGT SCH (05:34)
[2018-11-03] MEDS: LORAZEPAM 1 MG TAB PO SCH ×3 (06:10→22:00)
[2018-11-03 07:00] VITALS: BP 160/79; PULSE 80; RESP 18
[2018-11-03] MEDS: INSULIN ASPART [NOVOLOG] 3 ML PEN SC SCH ×7 (08:08→20:28)
--- NOTE | 2018-11-03 09:58 | PN ---
Date/Time of Note Date/Time of Note DATE: 11/03/18 TIME: 09:57 Subjective Staff reports patient with anxiety last night, sleepy this Am Objective Vital Signs Date Temp Pulse Resp B/P (MAP) Pulse Ox O2 O2 Flow FiO2 Time Delivery Rate 11/03/18 97.6 80 18 160/79 94 Room Air 07:00 (106) Intake and Output 11/02/18 11/02/18 11/03/18 1515:00 23:00 07:00 IntakeIntake Total 740 ml 1160 ml 1210 ml OutputOutput Total 100 ml 100 ml 200 ml BalanceBalance 640 ml 1060 ml 1010 ml Exam pulm-cta cga/min transfer Results/Medications Result Diagram: 11/03/18 0752 10/30/18 0548 Results 24 hrs Laboratory Tests Test 11/02/18 11:48 11/02/18 17:31 11/02/18 20:19 11/03/18 02:45 Bedside Glucose 247 H 184 211 173 Test 11/03/18 07:52 11/03/18 08:05 White Blood Count 7.7 Red Blood Count 4.74 Hemoglobin 14.5 Hematocrit 44.1 Mean Corpuscular Volume 93.0 Mean Corpuscular 30.6 Hemoglobin Mean Corpuscular 32.9 Hemoglobin Concent Red Cell Distribution 14.3 Width Platelet Count 195 Mean Platelet Volume 11.3 H Immature Granulocytes % 0.400 Neutrophils % 52.8 Lymphocytes % 31.0 Monocytes % 12.0 H Eosinophils % 3.5 Basophils % 0.3 Nucleated Red Blood 0.0 Cells % Immature Granulocytes # 0.030 Neutrophils # 4.1 Lymphocytes # 2.4 Monocytes # 0.9 Eosinophils # 0.3 Basophils # 0.0 Nucleated Red Blood 0.0 Cells # Bedside Glucose 212 Medications Current Medications Apixaban (Eliquis) 5 mg BID PO Last administered on 11/02/18at 20:20; Admin Dose 5 MG; Start 10/29/18 at 21:00 Docusate Sodium (Colace) 100 mg TID PO Last administered on 11/02/18at 20:20; Admin Dose 100 MG; Start 10/29/18 at 21:00 Gabapentin (Neurontin) 800 mg TID PO Last administered on 11/02/18at 20:19; Admin Dose 800 MG; Start 10/29/18 at 21:00 Lorazepam (Ativan) 1 mg Q8 PO Last administered on 11/03/18 06:10; Admin Dose 1 MG; Start 10/29/18 at 22:00 Metoprolol Tartrate (Lopressor) 25 mg BID PO Last administered on 11/02/18 20:20; Admin Dose 25 MG; Start 10/29/18 at 21:00 Morphine Sulfate (morphine) 4 mg Q4H PRN IV SEVERE PAIN LEVEL 7-10 Last administered on 11/03/18 05:30; Admin Dose 4 MG; Start 10/29/18 at 21:00 Ropinirole HCl (Requip) 0.5 mg HS PO Last administered on 11/02/18 20:20; Admin Dose 0.5 MG; Start 10/29/18 at 21:00 Tamsulosin HCl (Flomax) 0.4 mg HS PO Last administered on 11/02/18 20:20; Admin Dose 0.4 MG; Start 10/29/18 at 21:00 Zolpidem Tartrate (Ambien) 5 mg HS PRN PO INSOMNIA Last administered on 11/03/18 02:46; Admin Dose 5 MG; Start 10/29/18 at 21:00 Acetaminophen/ Hydrocodone Bitart ([place] (5/325)) 1 tab Q6H PRN PO MODERATE PAIN LEVEL 4-6 Last administered on 10/30/18 21:03; Admin Dose 1 TAB; Start 10/29/18 at 21:00 Senna (Senokot) 1 tab HS PO Last administered on 11/02/18 20:20; Admin Dose 1 TAB; Start 10/29/18 at 21:00 Magnesium Hydroxide (Milk Of Mag) 30 ml BID PRN PO CONSTIPATION; Start 10/29/18 at 21:00 Lactulose (Enulose) 20 gm DAILY PRN PO CONSTIPATION Last administered on 11/02/18 13:23; Admin Dose 20 GM; Start 10/29/18 at 21:00 Bisacodyl (Dulcolax Supp) 10 mg DAILY PRN [place] CONSTIPATION; Start 10/29/18 at 21:00 Acetaminophen (Tylenol Tab) 650 mg Q6H PRN PO MILD PAIN(1-3)OR ELEVATED TEMP; Start 10/30/18 at 03:00 Ascorbic Acid (Vitamin C) 500 mg DAILY PO Last administered on 11/02/18 09:42; Admin Dose 500 MG; Start 10/30/18 at 09:00 Cholecalciferol (Vitamin D) 2,000 unit DAILY PO Last administered on 11/02/18 09:42; Admin Dose 2,000 UNIT; Start 10/30/18 at 09:00 Docusate Sodium (Colace) 100 mg Q12H PRN PO CONSTIPATION; Start 10/30/18 at 03:00 Levothyroxine Sodium (Synthroid) 25 mcg DAILY@06 NGT Last administered on 11/03/18 05:34; Admin Dose 25 MCG; Start 10/30/18 at 06:00 Multivitamins Therapeutic (Theragran) 1 tab DAILY PO Last administered on 11/02/18 09:42; Admin Dose 1 TAB; Start 10/30/18 at 09:00 Ondansetron HCl (Zofran Inj) 4 mg Q6H PRN IV NAUSEA AND/OR VOMITING; Start 10/30/18 at 03:00 Pantoprazole (Protonix Tab) 40 mg DAILY@06 PO Last administered on 11/03/18 05:34; Admin Dose 40 MG; Start 10/30/18 at 06:00 Vitamin B Complex/ Vitamin C ([place]) 1 cap DAILY PO Last administered on 11/02/18 09:42; Admin Dose 1 CAP; Start 10/30/18 at 09:00 Zinc Sulfate (Zinc Sulfate) 220 mg DAILY PO Last administered on 11/02/18 09:42; Admin Dose 220 MG; Start 10/30/18 at 09:00 Diagnostic Test (Pha) (Accu-Chek) 1 ea 02 XX Last administered on 11/01/18 02:28; Admin Dose 1 EA; Start 10/31/18 at 02:00 Insulin Aspart (Novolog Insulin Pen) NOVOLOG *MODERATE* ALGORITHM WITH MEALS BEDTIME SC Last administered on 11/03/18 08:08; Admin Dose 4 UNIT; Start 10/30/18 at 12:00 Miscellaneous Information 1 ea NOTE XX ; Start 10/30/18 at 11:30 Glucose (Glutose) 15 gm Q15M PRN PO DECREASED GLUCOSE; Start 10/30/18 at 11:30 Glucose (Glutose) 22.5 gm Q15M PRN PO DECREASED GLUCOSE; Start 10/30/18 at 11:30 Dextrose (D50w Syringe) 25 ml Q15M PRN IV DECREASED GLUCOSE; Start 10/30/18 at 11:30 Dextrose (D50w Syringe) 50 ml Q15M PRN IV DECREASED GLUCOSE; Start 10/30/18 at 11:30 Glucagon (Glucagen) 1 mg Q15M PRN IM DECREASED GLUCOSE; Start 10/30/18 at 11:30 Glucose (Glutose) 15 gm Q15M PRN BUCCAL DECREASED GLUCOSE; Start 10/30/18 at 11:30 Miscellaneous Information (Pending Santyl Order For Wound Care) This patient dong... PRN PRN XX WOUND CARE; Start 11/01/18 at 13:30 Insulin Glargine (Lantus) 16 units DAILY@2000 SC Last administered on 11/02/18at 20:28; Admin Dose 16 UNITS; Start 11/02/18 at 20:00 Insulin Aspart (Novolog Insulin Pen) 4 unit WITH MEALS SC Last administered on 11/03/18at 08:09; Admin Dose 4 UNIT; Start 11/02/18 at 17:35 Quetiapine Fumarate (Seroquel) 25 mg HS PO ; Start 11/03/18 at 21:00 Assessment/Plan Additional Assessment/Plan rehab- Other orthopedic injury with right medial and lateral malleolar fracture with Cam boot placement; History of left below the knee amputation. Continue rehab Psych- consider low dose seroquel at night Diabetes mellitus type 2. Hypothyroidism. Neuropathy. Anxiety-Dr Joseph evaluation Paroxysmal atrial fibrillation. Benign prostate hypertrophy. Peripheral vascular disease. Chronic obstructive pulmonary disease. RYAN SANTILLAN MD Nov 03, 2018 09:58
[2018-11-03] MEDS: ZINC SULFATE 220 MG CAP PO SCH (10:44)
[2018-11-03] MEDS: GABAPENTIN 400 MG CAP PO SCH ×3 (10:45→20:11)
[2018-11-03] MEDS: METOPROLOL 25 MG TAB PO SCH ×2 (10:45→20:11)
[2018-11-03] MEDS: MULTIVITAMINS THERAPEUTIC TAB PO SCH (10:46)
[2018-11-03] MEDS: DOCUSATE SODIUM 100 MG CAP PO SCH ×3 (10:46→20:12)
[2018-11-03] MEDS: APIXABAN 5 MG TABLET PO SCH ×2 (10:46→20:12)
[2018-11-03] MEDS: VITAMIN B COMPLEX/VIT C CAP PO SCH (10:47)
[2018-11-03] MEDS: CHOLECALCIFEROL 2,000 UNIT CAP PO SCH (10:47)
[2018-11-03] MEDS: ASCORBIC ACID 500 MG TAB PO SCH (10:53)
[2018-11-03 14:00] VITALS: BP 145/97; PULSE 45; RESP 18
--- NOTE | 2018-11-03 14:35 | PN ---
DATE: 11/03/2018 SUBJECTIVE: Patient seen. Patient is complaining of insomnia. Patient to be started on Seroquel to night. Glucose level remains in the 200; continue to follow. PHYSICAL EXAMINATION: OBJECTIVE: VITAL SIGNS: Temperature 97.6, pulse 80, respirations 18, blood pressure 160/79, earlier was 135/78. Will monitor. Saturation 94% on room air. GENERAL: No acute distress. HEENT: Normocephalic, atraumatic. Pale. CARDIOVASCULAR: S1, S2, Irregularly irregular. LUNGS: Clear. ABDOMEN: Soft. Left BKA. EXTREMITIES: Right lower extremity Cam boot was removed by patient. No significant hematoma or skin changes noted. LABORATORY DATA: Today, white count 7.7, hemoglobin 14.5, hematocrit 44, platelets 195 with normal d ifferential. Chemistry: Sodium 134, potassium 3.9, chloride 99, bicarbonate 25, BUN 11, creatinine 1.12, glucose of 225. Last glucose level 240, elevated. We will adjust his insulin. MEDICATIONS: Reviewed and include: 1. Seroquel 25 at bedtime. 2. Insulin Lantus 16 units daily at night. 3. Insulin aspart 4 units before meals; Accu-Cheks as directed. 4. Hyperglycemia protocol as directed. 5. Vitamin C 500 mg daily. 6. Vitamin D 2000 daily. 7. Multivitamins daily. 8. Vitamin B complex 1 tab daily. 9. Zinc sulfate 220 daily. 10. Synthroid 25 mcg daily. 11. Protonix 40 mg daily. 12. Tylenol p.r.n. 13. Neurontin 800 t.i.d. 14. Lopressor 25 b.i.d. 15. Morphine p.r.n. 16. Requip 0.5 at bedtime. 17. Flomax 0.4 at bedtime. 18. Ambien p.r.n. 19. [place] p.r.n. 20. Senna as directed. ASSESSMENT AND PLAN: This is a 78-year-old male with history of diabetes mellitus, atrial fibrillation, peripheral vascular disease, left below the knee amputation, status post right ankle fr acture. 1. Right ankle fracture. Continue CAM walker, brace at all times per Dr. Bryant. Physical therapy and occupation therapy to follow. 2. Diabetes mellitus. Will increase Lantus to 22 units, increase NovoLog to 6 units. 3. Hypothyroidism. Continue Synthroid. 4. Dyslipidemia. 5. Continue stool softeners. 6. Insomnia and anxiety. Add Seroquel at night. Continue benzodiazepine as needed and routine. 7. Atrial rate controlled on Eliquis. 8. Anxiety disorder. 9. Neuropathy, on Neurontin. 10. Benign prostatic hypertrophy, on Flomax. 11. Continue above rehab and will follow. Dictated By: MIKE BUSBY/EVAN Conf#: [id number] DID#: [id number] CC: RYAN SANTILLAN MD;*EndCC*
[2018-11-03] MEDS: HYDROCODONE/APAP (5/325) TAB PO PRN (18:30)
[2018-11-03 19:36] VITALS: BP 140/88; PULSE 83; RESP 18
[2018-11-03] MEDS: TAMSULOSIN (SR) 0.4 MG CAP PO SCH (20:12)
[2018-11-03] MEDS: SENNA TAB PO SCH (20:12)
[2018-11-03] MEDS: ROPINIROLE 0.25 MG TAB PO SCH (20:12)
[2018-11-03] MEDS: QUETIAPINE 25 MG TAB PO SCH (20:12)
[2018-11-03] MEDS: INSULIN GLARGINE [LANTus] (100 UNITS/ML) SYG SC SCH (20:27)
[2018-11-04 02:00] VITALS: BP 133/82; PULSE 79; RESP 18
[2018-11-04] MEDS: ACCU-CHEK XX SCH (02:00)
[2018-11-04] MEDS: LEVOTHYROXINE 25 MCG TAB NGT SCH (06:16)
[2018-11-04] MEDS: PANTOPRAZOLE (EC) 40 MG TAB PO SCH (06:16)
[2018-11-04] MEDS: LORAZEPAM 1 MG TAB PO SCH ×3 (06:16→21:59)
[2018-11-04 07:00] VITALS: BP 157/69; PULSE 72; RESP 18
[2018-11-04] MEDS: INSULIN ASPART [NOVOLOG] 3 ML PEN SC SCH ×7 (07:55→21:09)
[2018-11-04] MEDS: CHOLECALCIFEROL 2,000 UNIT CAP PO SCH (08:56)
[2018-11-04] MEDS: DOCUSATE SODIUM 100 MG CAP PO SCH ×3 (08:56→20:56)
[2018-11-04] MEDS: VITAMIN B COMPLEX/VIT C CAP PO SCH (08:56)
[2018-11-04] MEDS: APIXABAN 5 MG TABLET PO SCH ×2 (08:56→20:56)
[2018-11-04] MEDS: GABAPENTIN 400 MG CAP PO SCH ×3 (08:56→20:56)
[2018-11-04] MEDS: ASCORBIC ACID 500 MG TAB PO SCH (08:57)
[2018-11-04] MEDS: ZINC SULFATE 220 MG CAP PO SCH (08:57)
[2018-11-04] MEDS: MULTIVITAMINS THERAPEUTIC TAB PO SCH (08:57)
[2018-11-04] MEDS: METOPROLOL 25 MG TAB PO SCH ×2 (08:57→21:10)
[2018-11-04] MEDS: morphine 4 MG/ML VIAL IV PRN ×2 (13:27→22:00)
[2018-11-04 14:00] VITALS: BP 136/69; PULSE 90; RESP 18
[2018-11-04] MEDS ORDERED: DIPHENHYDRAMINE 25 MG CAP PO PRN (16:30)
--- NOTE | 2018-11-04 17:26 | PN ---
DATE: 11/04/2018 SUBJECTIVE: The patient was seen, appears to be comfortable. He does not move his Cam brace intermi ttently. Case was discussed with nursing staff. His discharge planning is in progress for possible discharge this week. PHYSICAL EXAMINATION: VITAL SIGNS: Temperature 98, pulse 72, respirations 18, blood pressure 150/69, saturation 93%. GENERAL: No acute distress. HEENT: Normocephalic, atraumatic. CARDIOVASCULAR: S1, S2. Regular rate and rhythm. LUNGS: Clear. ABDOMEN: Soft, nontender. EXTREMITIES: No clubbing, cyanosis or edema. Left BKA. Right leg appears to be not swollen. No ev idence of erythema or skin breakdown. LABORATORY DATA: No new labs today. Labs done on 11/03/2018 showed a normal CBC and chemistry was r eviewed. Glucose is 206, 202 and 170. CURRENT MEDICATIONS: Reviewed, as follows: 1. Seroquel 25 at bedtime. 2. Lantus 22 units daily at night. 3. Insulin aspart 6 units before meals. 4. Accu-Cheks as directed. 5. Hypoglycemia protocol as directed. 6. Vitamin C 500 mg daily. 7. Vitamin D 2000 daily. 8. Multivitamin 1 tab daily. 9. Vitamin B complex daily. 10. Zinc sulfate 220 daily. 11. Synthroid 25 mcg daily. 12. Potassium daily. 13. Tylenol p.r.n. 14. Colace 100 p.r.n. 15. Zofran p.r.n. 16. Ativan 1 mg q.8 hours. 17. Eliquis 5 mg b.i.d. 18. Colace 100 t.i.d. 19. Neurontin 800 t.i.d. 20. Lopressor 25 b.i.d. 21. Requip 0.5 at bedtime. 22. Flomax 0.4 at bedtime. 23. P.r.n. medications reviewed. ASSESSMENT AND PLAN: This is a 78-year-old male with history of diabetes mellitus, atrial fibrillation, peripheral vascular disease, left below the knee amputation, status post right ankle fr acture. 1. Right ankle fracture. I recommend continue CAM walker brace. Physical therapy and occupational, see and follow up with Dr. Bryant. 2. Diabetes mellitus. Continue current regimen. Glucose levels now have improved to the 100s. 3. Hypothyroidism, on Synthroid. 4. Dyslipidemia. 5. Continue stool softeners. 6. Insomnia and anxiety. Continue Seroquel at night and benzodiazepines as well. 7. Atrial fibrillation on Eliquis. 8. Anxiety disorder. 9. Neuropathy, on Neurontin. 10. Benign prostatic hypertrophy, on Flomax. 11. Disposition: Likely soon. Dictated By: MIKE BUSBY/EVAN Conf#: [id number] DID#: [id number] CC: RYAN SANTILLAN MD; KENY WISE NP;*EndCC*
[2018-11-04 20:00] VITALS: BP 132/79; PULSE 73; RESP 18
[2018-11-04] MEDS: QUETIAPINE 25 MG TAB PO SCH (20:56)
[2018-11-04] MEDS: SENNA TAB PO SCH (20:56)
[2018-11-04] MEDS: ROPINIROLE 0.25 MG TAB PO SCH (20:57)
[2018-11-04] MEDS: TAMSULOSIN (SR) 0.4 MG CAP PO SCH (20:57)
[2018-11-04] MEDS: TRIAMCINOLONE ACET 0.1% 15 GM OINT TOP SCH (21:00)
[2018-11-04] MEDS: INSULIN GLARGINE [LANTus] (100 UNITS/ML) SYG SC SCH (21:09)
[2018-11-04] MEDS: ZOLPIDEM 5 MG TAB PO PRN (21:59)
[2018-11-05 02:00] VITALS: BP 137/75; PULSE 74; RESP 18
[2018-11-05] MEDS: ACCU-CHEK XX SCH (02:35)
[2018-11-05] MEDS: LEVOTHYROXINE 25 MCG TAB NGT SCH (06:48)
[2018-11-05] MEDS: PANTOPRAZOLE (EC) 40 MG TAB PO SCH (06:48)
[2018-11-05] MEDS: LORAZEPAM 1 MG TAB PO SCH (06:48)
[2018-11-05 07:00] VITALS: BP 132/82; PULSE 87; RESP 18
[2018-11-05] MEDS: INSULIN ASPART [NOVOLOG] 3 ML PEN SC SCH ×2 (08:04→08:05)
--- NOTE | 2018-11-05 08:57 | DS ---
Date/Time of Note Date/Time of Note DATE: 11/05/18 TIME: 08:54 Discharge Summary Admission/Discharge Info Admit Date/Time Oct 29, 2018 at 20:18 Discharge Date/Time Discharge Diagnosis 1. Other orthopedic injury with right medial and lateral malleolar fracture with Cam boot placement; History of left below the knee amputation. 2. Diabetes mellitus type 2. 3. Hypothyroidism. 4. Neuropathy. 5. Anxiety. 6. Paroxysmal atrial fibrillation. 7. Benign prostate hypertrophy. 8. Peripheral vascular disease. 9. Chronic obstructive pulmonary disease. 10. Improvements in self-care and mobility. Patient Condition: Good Hospital Course Patient was admitted for comprehensive interdisciplinary rehabilitation and made steady functional gains. He improved from a min/mod assist level to a SBA level for self care and mobility, including ambulation with is prosthesis and FWW over 100 feet. He is being discharged with the recommendation of home health RN, PT and OT follow up to his LONGTERM. DC meds are per the medication reconciliation sheet. Patient will follow up with PMD upon discharge. Home Meds Active Scripts Hydrocodone/Acetaminophen ([place] 5-325 Tablet) 1 Each Tablet, 1 EACH PO Q8, #20 TAB Prov:MIKE MILLS MD 08/17/18 Methylprednisolone* (Medrol* DOSE PACK) 4 Mg/Dose-Pack Tab.ds.pk, 4 MG PO . DIRECTED for 6 Days, PACKET Prov:MIKE MILLS MD 08/17/18 Levofloxacin* (Levaquin*) 500 Mg Tablet, 500 MG PO DAILY for 5 Days, TAB Prov:MIKE MILLS MD 08/17/18 Ibuprofen* (Motrin*) 600 Mg Tab, 600 MG PO Q8 PRN for PAIN AND/OR INFLAMMATION, #30 TAB Prov:DARY SAAVEDRA MD 05/07/18 Reported Medications Zinc Sulfate* (Zinc Sulfate*) 220 Mg Cap, 220 MG PO DAILY, CAP 09/11/17 Ascorbic Acid* (Vitamin C*) 500 Mg Capsule.sa, 500 MG PO DAILY, CAP 09/11/17 Multivitamins* (Theragran*) 1 Tab Tab, 1 TAB PO DAILY, TAB 09/11/17 Gabapentin* (Gabapentin*) 800 Mg Tablet, 800 MG PO TID, #90 TAB 09/11/17 Cholecalciferol* (Vitamin D3*) 1,000 Unit Tablet, 2000 UNIT PO DAILY, TAB 09/11/17 Vitamin B Complex* (Vitamin B Complex*) 1 Each Tablet, 1 TAB PO DAILY, TAB 09/11/17 Ropinirole Hcl* (Ropinirole Hcl*) 0.5 Mg Tablet, 0.5 MG PO HS, TAB 09/11/17 Metoprolol Tartrate* (Lopressor*) 25 Mg Tab, 25 MG PO BID, #60 TAB 09/09/17 Tamsulosin Hcl* (Tamsulosin Hcl*) 0.4 Mg Cap.er.24h, 0.4 MG PO HS, CAP 09/09/17 Metformin* (Glucophage*) 500 Mg Tab, 500 MG PO DAILY, TAB 07/02/14 Lorazepam* (Lorazepam*) 1 Mg Tablet, 1 MG PO Q8, TAB 07/02/14 Docusate Sodium* (Colace*) 100 Mg Capsule, 100 MG PO TID, CAP 07/02/14 Primary Care Provider Lissy Mills MD Pending Labs Laboratory Tests Test 11/04/18 11:59 11/04/18 17:14 11/04/18 20:55 11/05/18 02:17 Bedside 206 190 232 240 Glucose mg/dL (70-220) mg/dL (70-220) mg/dL (70-220) mg/dL (70-220) Test 11/05/18 07:43 Bedside 214 Glucose mg/dL (70-220) RYAN SANTILLAN MD Nov 05, 2018 08:57
[2018-11-05] MEDS: ASCORBIC ACID 500 MG TAB PO SCH (09:14)
[2018-11-05] MEDS: VITAMIN B COMPLEX/VIT C CAP PO SCH (09:14)
[2018-11-05] MEDS: APIXABAN 5 MG TABLET PO SCH (09:14)
[2018-11-05] MEDS: MULTIVITAMINS THERAPEUTIC TAB PO SCH (09:15)
[2018-11-05] MEDS: METOPROLOL 25 MG TAB PO SCH (09:15)
[2018-11-05] MEDS: ZINC SULFATE 220 MG CAP PO SCH (09:15)
[2018-11-05] MEDS: CHOLECALCIFEROL 2,000 UNIT CAP PO SCH (09:15)
[2018-11-05] MEDS: DOCUSATE SODIUM 100 MG CAP PO SCH (09:15)
[2018-11-05] MEDS: GABAPENTIN 400 MG CAP PO SCH (09:15)
[2018-11-05] MEDS: TRIAMCINOLONE ACET 0.1% 15 GM OINT TOP SCH (09:34)
[2018-11-05] MEDS: morphine 4 MG/ML VIAL IV PRN (10:13)
== END 2018-11-05 11:35 | disposition home health service (06) | DRG 560 ==
LOC: VRC 20:18
PROVIDERS: ADMIT Physical Medicine & Rehabilitation; ATTEND Internal Medicine
PROC: F07Z5ZZ Bed Mobility Treatment (ICD-10-PCS; principal; 2018-10-30)
PROC: F07Z8ZZ Transfer Training Treatment (ICD-10-PCS; 2018-10-30)
PROC: F07Z9ZZ Gait Training/Functional Ambulation Treatment (ICD-10-PCS; 2018-10-30)
PROC: F08Z2ZZ Grooming/Personal Hygiene Treatment (ICD-10-PCS; 2018-10-30)
PROC: F08Z1ZZ Dressing Techniques Treatment (ICD-10-PCS; 2018-10-30)
PROC: F08Z0ZZ Bathing/Showering Techniques Treatment (ICD-10-PCS; 2018-10-30)
DX: S82.61XD Displaced fracture of lateral malleolus of right fibula, subsequent encounter for closed fracture with routine healing (principal); F33.9 Major depressive disorder, recurrent, unspecified; W18.30XD Fall on same level, unspecified, subsequent encounter; E11.40 Type 2 diabetes mellitus with diabetic neuropathy, unspecified; E11.51 Type 2 diabetes mellitus with diabetic peripheral angiopathy without gangrene; E78.5 Hyperlipidemia, unspecified; E03.9 Hypothyroidism, unspecified; F06.31 Mood disorder due to known physiological condition with depressive features; F06.8 Other specified mental disorders due to known physiological condition; F41.9 Anxiety disorder, unspecified; G47.00 Insomnia, unspecified; I48.0 Paroxysmal atrial fibrillation; I10 Essential (primary) hypertension; J44.9 Chronic obstructive pulmonary disease, unspecified; N40.0 Benign prostatic hyperplasia without lower urinary tract symptoms; Z74.09 Other reduced mobility; Z89.512 Acquired absence of left leg below knee; Z87.891 Personal history of nicotine dependence; Z79.01 Long term (current) use of anticoagulants
CPT/HCPCS: 80053; 81003; 82962; 83036; 83735; 84100; 85025; 87081; 87086; 97110; 97112; 97116; 97163; 97530; 97535; 97542; J1815; J2270